=== PATIENT | female | born 1950 | race Asian ===

== ENCOUNTER → 2019-09-28 | Outpatient (REF) | payer BC ==
[2019-09-28 14:17] LABS: EOS # 0.2 10^3/uL (0.0-0.5); EOS % 4.4 % (0.0-3.0); HEMATOCRIT 40.9 % (36.0-47.0); HEMOGLOBIN 13.1 g/dl (12.0-15.5); LYMPH # 1.1 10^3/uL (1.5-5.0); MEAN CORPUSCULAR HEMOGLOBIN 30.8 pg (27.0-33.0); MONO # 0.3 10^3/uL (0.0-0.8); MONO % 6.5 % (0.0-5.0); NEUTROPHILS # 2.3 10^3/uL (1.5-8.5); NEUTROPHILS % 58.8 % (36.0-66.0); PLATELET COUNT, AUTOMATED 222 10^3/uL (150-450); RED BLOOD COUNT 4.26 10^6/uL (4.00-5.40); WHITE BLOOD COUNT 3.9 10^3/uL (4.0-10.0)
[2019-09-28 14:33] LABS: ALBUMIN 4.2 GM/DL (3.2-5.2); ALT/SGPT 28 U/L (12-78); BILIRUBIN,TOTAL 0.7 MG/DL (0.2-1.0); BLOOD UREA NITROGEN 14 MG/DL (7-18); CALCIUM LEVEL 8.8 MG/DL (8.8-10.2); CARBON DIOXIDE LEVEL 27 MEQ/L (21-32); CHLORIDE LEVEL 108 MEQ/L (98-107); CHOLESTEROL LEVEL 197 MG/DL (<200); CHOLESTEROL RISK RATIO 3.396 (<5); CREATININE FOR GFR 0.84 MG/DL (0.55-1.30); FREE T4 0.97 NG/DL (0.76-1.46); GLOMERULAR FILTRATION RATE > 60.0 (>45); GLUCOSE, FASTING 89 MG/DL (70-100); HDL CHOLESTEROL 58 MG/DL (>40); LDL CHOLESTEROL 122 MG/DL (<100); NON-HDL-C 139 MG/DL; POTASSIUM SERUM 4.1 MEQ/L (3.5-5.1); SODIUM LEVEL 142 MEQ/L (136-145); TOTAL PROTEIN 7.1 GM/DL (6.4-8.2); TRIGLYCERIDES LEVEL 87 MG/DL (<150)
[2019-09-28 14:35] LABS: TOTAL 25(OH) VITAMIN D 23.4 NG/ML (30.0-100.0)
[2019-09-30 00:06] LABS: Lyme Disease IgG/IgM Antibodie <0.91 ISR (0.00-0.90); Lyme Disease IgM Ab Quantitati <0.80 index (0.00-0.79)
== END ==
LOC: M LAB REF 12:36
PROVIDERS: ATTEND Family Medicine
DX: Z12.39 Encounter for other screening for malignant neoplasm of breast (principal)

== ENCOUNTER → 2020-01-23 | Outpatient (REF) | payer BC ==
[~2020-01-23] MED LIST: AUGM875T28 PO; FLUTISP NARES
[2020-01-23 14:17] LABS: BASO % 1.1 % (0.0-1.0); EOS # 0.1 10^3/uL (0.0-0.5); EOS % 1.9 % (0.0-3.0); HEMATOCRIT 38.6 % (36.0-47.0); HEMOGLOBIN 12.6 g/dl (12.0-15.5); LYMPH # 0.9 10^3/uL (1.5-5.0); LYMPH % 23.6 % (24.0-44.0); MEAN CORPUSCULAR HEMOGLOBIN 30.9 pg (27.0-33.0); MEAN CORPUSCULAR HGB CONC 32.6 g/dl (32.0-36.5); MEAN CORPUSCULAR VOLUME 94.6 fl (80.0-96.0); MONO # 0.5 10^3/uL (0.0-0.8); NEUTROPHILS # 2.2 10^3/uL (1.5-8.5); NEUTROPHILS % 59.6 % (36.0-66.0); PLATELET COUNT, AUTOMATED 173 10^3/uL (150-450); RED BLOOD COUNT 4.08 10^6/uL (4.00-5.40); WHITE BLOOD COUNT 3.7 10^3/uL (4.0-10.0)
[2020-01-23 14:23] LABS: ALBUMIN 3.5 GM/DL (3.2-5.2); ALT/SGPT 25 U/L (12-78); BILIRUBIN,TOTAL 0.6 MG/DL (0.2-1.0); BLOOD UREA NITROGEN 11 MG/DL (7-18); CARBON DIOXIDE LEVEL 27 MEQ/L (21-32); CHLORIDE LEVEL 108 MEQ/L (98-107); CHOLESTEROL LEVEL 156 MG/DL (<200); CHOLESTEROL RISK RATIO 4.457 (<5); GLOMERULAR FILTRATION RATE > 60.0 (>45); GLUCOSE, FASTING 92 MG/DL (70-100); HDL CHOLESTEROL 35 MG/DL (>40); LDL CHOLESTEROL 95 MG/DL (<100); NON-HDL-C 121 MG/DL; POTASSIUM SERUM 4.2 MEQ/L (3.5-5.1); SODIUM LEVEL 141 MEQ/L (136-145); TOTAL PROTEIN 6.7 GM/DL (6.4-8.2); TRIGLYCERIDES LEVEL 129 MG/DL (<150)
[2020-01-23 14:45] LABS: HEMOGLOBIN A1c 6.1 %
== END ==
LOC: M LAB REF 12:22
PROVIDERS: ATTEND Nurse Practitioner Family
DX: J06.9 Acute upper respiratory infection, unspecified (principal); R53.83 Other fatigue

== ENCOUNTER 2020-01-28 22:01 | Inpatient (IN) | payer BC ==
[~2020-01-28] VITALS: Ht 152.4 cm; Wt 77.0 kg
[2020-01-28] MEDS ORDERED: ACETAMINOPHEN 500 MG TAB PO ONE (22:45)
[2020-01-28 22:50] LABS: HEMATOCRIT 31.4 % (36.0-47.0); HEMOGLOBIN 10.6 g/dl (12.0-15.5); MEAN CORPUSCULAR HEMOGLOBIN 30.5 pg (27.0-33.0); MEAN CORPUSCULAR HGB CONC 33.8 g/dl (32.0-36.5); MEAN CORPUSCULAR VOLUME 90.5 fl (80.0-96.0); PLATELET COUNT, AUTOMATED 118 10^3/uL (150-450); RED BLOOD COUNT 3.47 10^6/uL (4.00-5.40); WHITE BLOOD COUNT 4.4 10^3/uL (4.0-10.0)
[2020-01-28 22:58] LABS: BASOPHILS 1 % (0-1); LYMPHOCYTES 26 % (16-44); MONOCYTES 10 % (0-5); NEUTROPHILS 63 % (28-66)
[2020-01-28 22:59] LABS: ANISOCYTOSIS 1+; PLATELET ESTIMATE DECREASED (NORMAL); POLYCHROMASIA 1+
[2020-01-28 23:55] LABS: BLOOD UREA NITROGEN 15 MG/DL (7-18); CALCIUM LEVEL 7.6 MG/DL (8.8-10.2); CARBON DIOXIDE LEVEL 22 MEQ/L (21-32); CHLORIDE LEVEL 105 MEQ/L (98-107); CREATININE FOR GFR 0.65 MG/DL (0.55-1.30); GLOMERULAR FILTRATION RATE > 60.0 (>45); GLUCOSE, FASTING 133 MG/DL (70-100); POTASSIUM SERUM 3.6 MEQ/L (3.5-5.1); SODIUM LEVEL 136 MEQ/L (136-145)
[2020-01-29] MEDS ORDERED: ISOVUE-370 76% 100ML VIAL As Ordered ONE (00:05)
--- NOTE | 2020-01-29 01:59 | REPVR ---
PROCEDURE INFORMATION: Exam: CT Angiography Chest With Contrast Exam date and time: 01/29/2020 1:31 AM Age: 69 years old Clinical indication: Chest pain; Additional info: Hypox TECHNIQUE: Imaging protocol: Computed tomographic angiography of the chest with intravenous contrast. 3D rendering: MIP and/or 3D reconstructed images were created by the technologist. Radiation optimization: All CT scans at this facility use at least one of these dose optimization techniques: automated exposure control; mA and/or kV adjustment per patient size (includes targeted exams where dose is matched to clinical indication); or iterative reconstruction. Contrast material: ISO 370; Contrast volume: 75 ml; Contrast route: IV; COMPARISON: CR Chest, 1 view 01/28/2020 11:21 PM FINDINGS: Pulmonary arteries: Peripheral pulmonary artery evaluation limited by cardiac and respiratory motion artifact. Central pulmonary arteries show no intraluminal defect suggestive of clot. Aorta: Ascending thoracic aorta measures 3.6 cm. Descending aorta measures less than 3 cm. No descending aneurysm or dissection. Lungs: Pulmonary vascular/interstitial pattern does not suggest active pulmonary edema. No central endobronchial lesion. Patchy ground-glass opacities in the upper lobes predominantly and superior segment lower lobes. No endobronchial lesion or mass. Pleural space: No pleural effusion or pneumothorax. Heart: No overt cardiac enlargement or abnormal volume of pericardial fluid. Lymph nodes: No enlarged mediastinal lymph nodes. Calcified mediastinal lymph nodes suggest prior granulomatous exposure. Bones/joints: Bony structures show no acute fracture or destructive process. IMPRESSION: 1. Central pulmonary arteries show no intraluminal defect suggestive of clot. 2. Subtle bilateral ground-glass densities in the lungs with apical predominance suggesting atypical or viral pneumonia. Electronically signed by: Eddi Medina On 01/29/2020 01:59:02 AM
--- NOTE | 2020-01-29 01:59 | REP ---
Clinical: Fever . Comparison: None . Findings: The mediastinum and cardiac silhouette are stable and within normal limits for portable technique. The lung rojo are clear without acute consolidation, effusion, or pneumothorax. Skeletal structures are intact. Impression: No acute cardiopulmonary process appreciated. Electronically Signed by Dickson Green MD 01/29/2020 01:52 A
[2020-01-29 03:42] LABS: CK-MB VALUE MASS < 1.0 NG/ML (<3.6); CPK CREATINE PHOSPHOKINASE 27 U/L (26-192); LDH LACTATE DEHYDROGENASE 617 U/L (84-246); TROPONIN I < 0.02 NG/ML (< 0.10)
[2020-01-29] MEDS ORDERED: AUGM875T28 PO (03:51)
[2020-01-29] MEDS ORDERED: FLUTISP NARES (03:51)
[2020-01-29] MEDS ORDERED: ALBUTEROL 90 MCG/ACT 8GM HFA INHALER INH PRN (05:15)
[2020-01-29] MEDS: cefTRIAXone SOD 2 GM in D5W MINI-BAG PLUS 50 ML IV SCH (05:52)
[2020-01-29 06:55] VITALS: BP 99/55
[2020-01-29 07:03] LABS: HEMATOCRIT 30.1 % (36.0-47.0); HEMOGLOBIN 10.1 g/dl (12.0-15.5); MEAN CORPUSCULAR HEMOGLOBIN 30.8 pg (27.0-33.0); MEAN CORPUSCULAR HGB CONC 33.6 g/dl (32.0-36.5); MEAN CORPUSCULAR VOLUME 91.8 fl (80.0-96.0); PLATELET COUNT, AUTOMATED 112 10^3/uL (150-450); RED BLOOD COUNT 3.28 10^6/uL (4.00-5.40); WHITE BLOOD COUNT 3.8 10^3/uL (4.0-10.0)
--- NOTE | 2020-01-29 07:29 | HPEPDOC ---
General Date of Admission January 29, 2020 at 05:01 Date of Service: January 29, 2020 Attending Physician: NUSRAT LONDON MD Chief Complaint The patient is a 69-year-old female admitted with a reason for visit of Hypoxia,Pneumonia. Source: Patient Exam Limitations: Language barrier Timing/Duration: Week(s) (1 month) Severity: Severe Associated Symptoms: Fever, Chills, Nausea, Vomiting History of Present Illness 69 yo woman who speak Greek as a second language who presented to the ED after 1 month of progressively worsening fevers, chills, and today N/V and episodic subjective SOB. She reports that her was ill as well 1 month ago when she started feeling unwell but he got better and his illness resolved but her's continued. She reports no recent travel with her last international travel having been to [place] ([place] in 06/2019 to visit family. She otherwise is healthy at baseline without any known past medical history. She otherwise has been eating, drinking well until today when she had N/V. She denies any chest pain, abdominal pain, diarrhea, constipation, weight loss, headaches, back pain, other sick contacts or pets. In the ED, she was HDS with a recorded fever to 103.1 with soft BPs while saturating well on room air. Work up was notable for WBC 4.4, Hgb 10.6, platelets 118, na 136, K 3.6, Cr 0.65, covid-19 negative, CTA with subtle s cattered bilateral GGOs without PE, CRP 11.4, LDH 617, EKG with NSR and trop negative. Lactate was wnl, and ABG revealed paO2 of 66 though her sats remained wnl. She is now being admitted for possible viral PNA with ongoing work up for superimprosed bacterial PNA as well. Home Medications Scheduled Amoxicillin/Potassium Clav (Augmentin 875-125 Tablet) 1 Each Tablet, 1 TAB PO BID, (Reported) PRESCRIBED ON 01/23/2020 Fluticasone Propionate (Fluticasone Propionate) 16 Gm [place].susp, 1 SPRAY NARES BID, (Reported) PRESCRIBED 01/23/2020 Allergies Coded Allergies: SEASONAL ALLERGIES (Verified Allergy, Unknown, 01/28/20) Past Medical History Medical History None, 1 month of fevers Surgical History None Family History Significant Family History: No pertinent family hx Social History * Smoker: Denies Alcohol: Denies Drugs: denies Recent Travel/Sick Contacts: Denies: Recent travel, Recent sick contacts Psychosocial History: No pertinent psych hx Lives with husbandin [place] A-FIB/CHADSVASC A-FIB History Current/History of A-Fib/PAF?: No Current PO Anticoag Therapy: No Age/Risk Factor Scoring CHADSVASC: CHADSVASC Response (Comments) Value Age Risk Factor Age 65-74 years old 1 Gender Risk Factor Female 1 Hx of CHF No 0 Hx of HTN No 0 Hx of Stroke/TIA/or VTE No 0 Hx of Diabetes No 0 Hx of Vascular Disease No 0 Total 2 Treatment Treatment ordered: NONE Reason Anticoagulant not given: Not indicated/[id number] Review of Systems Constitutional: Reports: Chills, Fever, Weakness; Denies: Weight Loss Eyes: Denies: Pain, Vision change ENT: Denies: Head Aches, Ear Pain, Dysphagia Skin: Denies: Rash, Lesions, Breakdown Pulmonary: Reports: Dyspnea (intermittent); Denies: Cough, Pleuritic Chest Pain Cardiovascular: Denies: Chest Pain, Palpitations, Orthopnea, Paroxysmal Noc. Dyspnea, Lt Headedness Gastrointestinal: Reports: Nausea, Vomiting; Denies: Abdominal Pain, Diarrhea, Constipation, Melena, Hematochezia Genitourinary: Denies: Dysuria, Frequency, Incontinence, Retention Hematologic: Denies: Bruising, Bleeding Excessively Endocrine: Denies: Polydipsia, Polyphagia, Polyuria, Heat Intolerance, Cold Intolerance, Other Endocrine Sx Musculoskeletal: Denies: Neck Pain, Back Pain, Joint Pain, Muscle Pain, Spasms Neurological: Denies: Weakness, Numbness, Change in speech, Confusion Psych: Reports: Mood Normal; Denies: Depression, Memory Issues Physical Examination General Exam: Positive: Alert, No Acute Distress Eye Exam: Positive: PERRLA, Conjunctiva & lids normal, EOMI; Negative: Sclera icteric ENT Exam: Positive: Atraumatic, Mucous membr. moist/pink, Pharynx Normal Neck Exam: Positive: Supple; Negative: JVD, thyromegaly Chest Exam: Positive: Clear to auscultation, Normal air movement Heart Exam: Positive: Rate Normal, Regular Rhythm, Normal S1, Normal S2; Negative: Murmurs, Rubs Telemetry: Positive: No significant arrhythmia Abdomen Exam: Positive: Normal bowel sounds, Soft; Negative: Tenderness, Hepatospenomegaly Extremity Exam: Positive: Normal pulses; Negative: Clubbing, Cyanosis, Edema Skin Exam: Positive: Nl turgor and temperature; Negative: Breakdown, Lesion Neuro Exam: Positive: Normal Gait, Normal Speech, Cranial Nerves 3-12 NL, Reflexes 2+ Psych Exam: Positive: Mental status NL, Mood NL, Oriented x 3 Vital Signs Vital Signs Date Time Temp Pulse Resp B/P (MAP) Pulse Ox O2 Delivery O2 Flow Rate FiO2 01/29/20 06:47 64 96 01/29/20 05:54 91/50 (64) 01/29/20 04:57 97.9 01/28/20 22:48 Room Air 01/28/20 22:01 16 Laboratory Data Labs 24H Laboratory Tests 2 01/28/20 22:36: Neutrophils (%) (Auto) , Nucleated Red Blood Cells % (auto) 0.0, Neutrophils 63, Lymphocytes (Manual) 26, Monocytes (Manual) 10H, Basophils (Manual) 1, Polychromasia 1+, Anisocytosis 1+, Platelet Estimate DECREASED, D-Dimer, Quantitative 791.31H 01/28/20 22:38: Anion Gap 9, Glomerular Filtration Rate > 60.0, Calcium Level 7.6L, Lactate Dehydrogenase 617H, Total Creatine Kinase 27, Creatine Kinase MB < 1.0, Creatine Kinase MB Relative Index 3.70, Troponin I < 0.02, C-Reactive Protein, Quantitative 11.40H, Coronavirus (COVID-19)(PCR) NEGATIVE 01/28/20 22:39: Lactic Acid Level 1.2 01/28/20 23:01: POC pH (Misc Panel) 7.452H, POC Base Excess (Misc Panel) -2.0, POC Saturated Percent O2 (Misc) 94L, POC pO2 (Misc Panel) 66.0L, POC pCO2 (Misc Panel) 31.3L, POC HCO3 (Misc Panel) 21.9L, POC Total CO2 (Misc Panel) 23.0 01/29/20 06:47: Nucleated Red Blood Cells % (auto) 0.0 CBC/BMP Laboratory Tests 01/28/20 22:36 01/28/20 22:38 01/29/20 06:47 Microbiology Microbiology 5/17/20 Blood Culture, Received Pending 01/28/20 Blood Culture, Received Pending 01/28/20 - Final, Complete Assessment/Plan 69 yo woman who speak Greek as a second language who presented to the ED after 1 month of progressively worsening fevers, chills, and today N/V and episodic subjective SOB of one months with elevated inflammatory markers and subtle scattered GGOs on CT c/f viral PNA however with onging workup for superimposed bacterial PNA given worsening fevers recently, as well as occult infection. Fever with subjective SOB and GGOs on CT: -empiric ceftriaxone/azithro -procalcitonin -sputum culture -respiratory panel -covid-19 negative -blood cultures -no PE on CTA -may end up needing fever on unclear origin workup DVT ppx: TEDs and SCDs Diet: regular Dispo: medsurg Plan / VTE VTE Prophylaxis Ordered?: Yes NUSRAT LONDON MD January 29, 2020 07:29
[2020-01-29 07:47] LABS: ALBUMIN 2.7 GM/DL (3.2-5.2); ALT/SGPT 79 U/L (12-78); BILIRUBIN,TOTAL 0.3 MG/DL (0.2-1.0); BLOOD UREA NITROGEN 13 MG/DL (7-18); CALCIUM LEVEL 7.9 MG/DL (8.8-10.2); CARBON DIOXIDE LEVEL 25 MEQ/L (21-32); CHLORIDE LEVEL 111 MEQ/L (98-107); CREATININE FOR GFR 0.58 MG/DL (0.55-1.30); GLOMERULAR FILTRATION RATE > 60.0 (>45); GLUCOSE, FASTING 111 MG/DL (70-100); POTASSIUM SERUM 3.6 MEQ/L (3.5-5.1); SODIUM LEVEL 143 MEQ/L (136-145)
[2020-01-29] MEDS: IPRATROPIUM 0.5MG/ALBUTEROL 2.5MG INH SOL UD 3ML (DUONEB) INH SCH ×5 (08:00→23:54)
[2020-01-29] MEDS: AZITHROMYCIN INJ 500 MG, VIAL MATE ADAPTER 1 EACH in D5W 250 ML IV SCH (08:18)
[2020-01-29] MEDS: FLUTICASONE PROP 0.05% NASAL SPRAY 16 GM (FLONASE) NARES SCH ×2 (08:19→22:07)
[2020-01-29] MEDS ORDERED: ENOXAPARIN 40MG/0.4ML SYRINGE (J1650 PER 10MG) SC SCH (09:00)
[2020-01-29] MEDS ORDERED: NS 1,000 ML IV SCH (11:30)
[2020-01-29] MEDS: ACETAMINOPHEN TAB 650MG DOSE (2X325MG) PO PRN ×2 (11:59→22:07)
[2020-01-29 15:21] VITALS: BP 91/54
[2020-01-29] MEDS ORDERED: KETOROLAC 30 MG/ML 1ML VIAL IV ONE (16:00)
[2020-01-29] MEDS ORDERED: NS 1,000 ML IV ONE ×2 (16:00→17:00)
[2020-01-29 18:13] VITALS: BP 99/62
[2020-01-29 19:45] VITALS: BP 102/61
[2020-01-29 23:43] VITALS: BP 125/65
[2020-01-30] MEDS: IBUPROFEN 600MG TAB PO PRN ×3 (01:07→18:05)
[2020-01-30] MEDS: IPRATROPIUM 0.5MG/ALBUTEROL 2.5MG INH SOL UD 3ML (DUONEB) INH SCH ×5 (04:00→19:49)
[2020-01-30] MEDS: cefTRIAXone SOD 2 GM in D5W MINI-BAG PLUS 50 ML IV SCH (05:51)
[2020-01-30] MEDS: ACETAMINOPHEN TAB 650MG DOSE (2X325MG) PO PRN ×3 (05:51→21:48)
[2020-01-30 06:00] VITALS: BP 92/56
[2020-01-30 06:03] LABS: HEMATOCRIT 29.4 % (36.0-47.0); MEAN CORPUSCULAR HEMOGLOBIN 31.2 pg (27.0-33.0); MEAN CORPUSCULAR VOLUME 91.6 fl (80.0-96.0); PLATELET COUNT, AUTOMATED 114 10^3/uL (150-450); RED BLOOD COUNT 3.21 10^6/uL (4.00-5.40); WHITE BLOOD COUNT 3.3 10^3/uL (4.0-10.0)
[2020-01-30 06:31] LABS: BLOOD UREA NITROGEN 13 MG/DL (7-18); CALCIUM LEVEL 7.8 MG/DL (8.8-10.2); CARBON DIOXIDE LEVEL 23 MEQ/L (21-32); CHLORIDE LEVEL 116 MEQ/L (98-107); CREATININE FOR GFR 0.56 MG/DL (0.55-1.30); GLOMERULAR FILTRATION RATE > 60.0 (>45); GLUCOSE, FASTING 112 MG/DL (70-100); SODIUM LEVEL 146 MEQ/L (136-145)
[2020-01-30] MEDS: FLUTICASONE PROP 0.05% NASAL SPRAY 16 GM (FLONASE) NARES SCH ×3 (07:28→21:49)
[2020-01-30] MEDS: AZITHROMYCIN INJ 500 MG, VIAL MATE ADAPTER 1 EACH in D5W 250 ML IV SCH (07:45)
--- NOTE | 2020-01-30 12:35 | ECHO ---
DATE OF STUDY: 01/29/2020 REFERRING PHYSICIAN: Dr. Collier INDICATION: Sepsis. HEIGHT: 152 cm WEIGHT: Not documented MEASUREMENTS: IVS: 1.0 LV: 4.0 LVPW: 1.0 LA: 2.7 Aorta: 2.9 IVC: 2.1 Mitral E wave velocity: 102 A wave: 84 E prime septal: 8.9 E prime lateral: 8.8 FINDINGS: The study is of good technical quality. The patient is in sinus rhythm. Left ventricle is normal size and has normal contractility, estimated left ventricle ejection fraction (LVEF) is 60-65%. Right ventricle is also normal size and systolic function. Both atria appear normal. Aortic, mitral and tricuspid valves were reasonably well seen and appear normal. Pulmonic valve was not well visualized. Trivial pericardial effusion is noted. Inferior vena cava is mildly dilated, but has collapse with inspiration, indicative of likely normal or mildly elevated central venous pressure. The aortic root and abdominal aorta appear normal. Aortic arch was not visualized. Doppler interrogation reveals competent aortic valve. There is trace mitral and tricuspid insufficiency. Calculated pulmonary artery pressure is at minimum in 30s and possibly in 40s, indicative of mild or possibly even moderate pulmonary hypertension. Mitral inflow pattern and tissue Doppler imaging on mitral annulus indicate probably normal diastolic function, even though tissue Doppler velocities of mitral annulus are mildly reduced. CONCLUSIONS: 1. The study is good technical quality, patient is in sinus rhythm. 2. Normal LV size and systolic function and probably normal diastolic function. 3. No significant valvular disease. 4. At least borderline elevated central venous pressure and likely mild or possibly even moderate pulmonary hypertension. COMMENTS: Subacute bacterial endocarditis (SBE) prophylaxis is not indicated. [facility]
[2020-01-30 14:17] LABS: INR 1.16; PROTHROMBIN TIME 14.5 SECONDS (11.8-14.0)
[2020-01-30 14:21] LABS: D-DIMER QUANT 699.63 ng/ml (<500)
[2020-01-30 14:23] LABS: PARTIAL THROMBOPLASTIN TIME 47.6 SECONDS (25.0-38.4)
[2020-01-30 14:25] VITALS: BP 117/64
[2020-01-30 15:14] LABS: CPK CREATINE PHOSPHOKINASE 21 U/L (26-192); FERRITIN 983 NG/ML (8-252); LDH LACTATE DEHYDROGENASE 526 U/L (84-246); TROPONIN I < 0.02 NG/ML (< 0.10)
--- NOTE | 2020-01-30 17:57 | IPNPDOC ---
Date Seen The patient was seen on 01/30/20. Progress Note SUBJECTIVE: The patient was seen and examined at the bedside this afternoon. She is having some coughing, but not a lot and she is producing some sputum. She feels as though she has had more fevers today but last recorded fever was early this AM. Otherwise, she states she just doesn't feel herself. She has some abdominal cramping that comes and goes, but no nausea or vomiting. OBJECTIVE PHYSICAL EXAMINATION: VITAL SIGNS: Please see below. GENERAL APPEARANCE: Laying in bed, appears stated age, no acute distress, calm, cooperative HEENT: EOMI, PERRLA, neck is supple with no thyromegaly or lymphadenopathy RESPIRATORY: Lungs are clear to auscultation bilaterally with no adventitious breath sounds appreciated CARDIOVASCULAR: no JVD, RRR,no murmurs/rubs/gallops, normal S1 and S2 ABDOMEN: +BS, soft, nontender to palpation in all four quadrants, no masses/organomegaly EXTREMITIES: no clubbing, cyanosis or edema noted NEUROLOGICAL: CN 2-12 intact, No obvious focal deficits PSYCHIATRIC: normal mood/affect Skin: No rashes or ulcers appreciated, warm and well-perfused LN: No significant cervical or inguinal lymphadenopathy LABORATORY DATA, IMAGING STUDIES, MICROBIOLOGY: Please see below. DVT prophylaxis ordered?: TEDS/SCDs ASSESSMENT AND PLAN: This is a 69-year-old female with history of fevers and chills progressively worsening over the past month, and episodic subjective shor tness of breath, found to have elevated inflammatory markers, concerning for viral versus bacterial pneumonia. She is COVID-19 negative. PROBLEMS: 1. Viral versus bacterial upper respiratory infection: The patient is saturating 91% on room air -Ground glass opacities found on CTA and chest x-ray -Sputum culture ordered -Blood cultures pending -Continue empiric ceftriaxone and azithromycin -Pro calcitonin found to be 0.17, therefore less likely bacterial infection -Respiratory panel found to be negative -Atypical pneumonia testing, including mycoplasma and C.pneumoniae ordered and pending. -Continue Tylenol, ibuprofen for fevers -Duo nebs ordered as needed DISPOSITION: pending clinical improvement. If patient continues to have fevers, will do further workup for FUO VS, I&O, 24H, Fishbone Vital Signs/I&O Vital Signs Date Time Temp Pulse Resp B/P (MAP) Pulse Ox O2 Delivery O2 Flow Rate FiO2 01/30/20 14:25 98.7 87 17 117/64 (81) 91 Room Air I&O- Last 24 Hours up to 6 AM 01/30/20 06:00 Intake Total 3590 ml Output Total 700 ml Balance 2890 ml Laboratory Data 24H LABS Laboratory Tests 2 01/30/20 05:36: Nucleated Red Blood Cells % (auto) 0.0, Anion Gap 7L, Glomerular Filtration Rate > 60.0, Calcium Level 7.8L 01/30/20 09:36: 01/30/20 13:37: Prothrombin Time 14.5H, Prothromb Time International Ratio 1.16, Activated Partial Thromboplast Time 47.6H, Fibrinogen 522H, D-Dimer, Quantitative 699.63H, Ferritin 983H, Lactate Dehydrogenase 526H, Total Creatine Kinase 21L, Troponin I < 0.02, C-Reactive Protein, Quantitative 13.20H CBC/BMP Laboratory Tests 01/30/20 05:36 Microbiology Microbiology 01/30/20 Respiratory Virus Panel (PCR) ([facility]) - Final, Complete 01/28/20 Blood Culture - Preliminary, Resulted No growth after 24 hours . All specim... 01/28/20 Blood Culture - Preliminary, Resulted No growth after 24 hours . All specim... 01/28/20 - Final, Complete GME ATTESTATION GME ATTESTATION My faculty preceptor for this patient encounter was physically present during the encounter and was fully available. All aspects of the patient interview, examination, medical decision making process, and medical care plan development were reviewed and approved by the faculty preceptor. The faculty preceptor is aware and concurs with the plan as stated in the body of this note and will attest to such by his/her cosignature. ATTENDING NOTE Patient was seen and examined by me and agree with the above assessment and plan MORGAN BEACH MD January 30, 2020 17:57 ROM HOWE MD February 02, 2020 17:46
[2020-01-30 21:50] VITALS: BP 115/61
[2020-01-31] MEDS: IPRATROPIUM 0.5MG/ALBUTEROL 2.5MG INH SOL UD 3ML (DUONEB) INH SCH ×5 (04:00→15:59)
[2020-01-31 04:36] VITALS: BP 137/72
[2020-01-31] MEDS: IBUPROFEN 600MG TAB PO PRN ×3 (04:38→23:23)
[2020-01-31] MEDS: cefTRIAXone SOD 2 GM in D5W MINI-BAG PLUS 50 ML IV SCH (05:52)
[2020-01-31 05:57] LABS: HEMATOCRIT 30.7 % (36.0-47.0); HEMOGLOBIN 10.2 g/dl (12.0-15.5); MEAN CORPUSCULAR HEMOGLOBIN 30.1 pg (27.0-33.0); MEAN CORPUSCULAR HGB CONC 33.2 g/dl (32.0-36.5); MEAN CORPUSCULAR VOLUME 90.6 fl (80.0-96.0); PLATELET COUNT, AUTOMATED 113 10^3/uL (150-450); RED BLOOD COUNT 3.39 10^6/uL (4.00-5.40); WHITE BLOOD COUNT 5.4 10^3/uL (4.0-10.0)
[2020-01-31 06:01] LABS: BLOOD UREA NITROGEN 11 MG/DL (7-18); CALCIUM LEVEL 8.1 MG/DL (8.8-10.2); CARBON DIOXIDE LEVEL 24 MEQ/L (21-32); CHLORIDE LEVEL 109 MEQ/L (98-107); CREATININE FOR GFR 0.52 MG/DL (0.55-1.30); GLOMERULAR FILTRATION RATE > 60.0 (>45); GLUCOSE, FASTING 120 MG/DL (70-100); POTASSIUM SERUM 3.7 MEQ/L (3.5-5.1); SODIUM LEVEL 142 MEQ/L (136-145)
[2020-01-31] MEDS: AZITHROMYCIN INJ 500 MG, VIAL MATE ADAPTER 1 EACH in D5W 250 ML IV SCH (08:40)
[2020-01-31] MEDS: FLUTICASONE PROP 0.05% NASAL SPRAY 16 GM (FLONASE) NARES SCH ×2 (08:40→20:17)
[2020-01-31 09:18] LABS: HEPATITIS B SURFACE ANTIGEN NEGATIVE (NEGATIVE)
[2020-01-31 09:45] LABS: HEPATITIS C VIRUS ABY INDEX 0.1 INDEX (<0.8)
[2020-01-31 09:46] LABS: HEPATITIS B CORE ANTIBODY IGM NEGATIVE (NEGATIVE)
[2020-01-31 09:48] LABS: HEPATITIS A ANTIBODY IGM NEGATIVE (NEGATIVE)
[2020-01-31 11:16] LABS: RHEUMATOID FACTOR QUANT < 10.0 IU/ML (<15.0); TOTAL PROTEIN 5.6 GM/DL (6.4-8.2)
[2020-01-31 11:35] LABS: ERYTHROCYTE SEDIMENTATION RATE 65 mm/hr (0-30)
[2020-01-31] MEDS ORDERED: FUROSEMIDE 40MG/4ML VIAL (J1940) IV ONE (11:45)
[2020-01-31 12:06] LABS: HIV 1&2 SCREEN CENTAUR NEGATIVE (NEGATIVE)
[2020-01-31 14:00] VITALS: BP 122/74
--- NOTE | 2020-01-31 14:14 | REP ---
CT CHEST WITHOUT IV CONTRAST: CT chest performed without IV contrast. Sagittal and coronal reconstruction images are performed. Comparison is made with a prior study 01/29/2020. There are extensive diffuse bilateral patchy parenchymal opacities in the upper lobes which have increased since the prior study. There is mild diffuse interstitial infiltrate or edema bilaterally. There are small bilateral pleural effusions which are new. The heart is upper limits of normal in size. No pericardial effusion is seen. Ascending thoracic aorta is slightly ectatic at 4 cm. Calcified lymph nodes are again seen in the left hilar region. No significant adenopathy is detected. There are degenerative changes of the spine. IMPRESSION: Increased patchy alveolar infiltrates at both upper lobes diffusely. There is mild new diffuse interstitial edema/infiltrate. New small bilateral pleural effusions. Electronically Signed by Tacho Lu MD 01/31/2020 04:46 P
[2020-01-31] MEDS ORDERED: COMBIVENT RESPIMAT 100-20MCG INHALER 4GM INH PRN (18:15)
--- NOTE | 2020-01-31 18:24 | IPNPDOC ---
Date Seen The patient was seen on 01/31/20. Progress Note SUBJECTIVE: The patient continues to have fevers. She denies any complaints this morning, no shortness of breath, no nausea, no vomiting or diarrhea. She does still feel somewhat weak. She was found to be hypoxic this morning as well, requiring about 2 L of oxygen. OBJECTIVE PHYSICAL EXAMINATION: VITAL SIGNS: Please see below. GENERAL APPEARANCE: Laying in bed, appears stated age, no acute distress, calm, cooperative HEENT: EOMI, PERRLA, neck is supple with no thyromegaly or lymphadenopathy RESPIRATORY: Lungs are clear to auscultation bilaterally with no adventitious breath sounds appreciated CARDIOVASCULAR: no JVD, RRR,no murmurs/rubs/gallops, normal S1 and S2 ABDOMEN: +BS, soft, nontender to palpation in all four quadrants, no masses/organomegaly EXTREMITIES: no clubbing, cyanosis or edema noted NEUROLOGICAL: CN 2-12 intact, No obvious focal deficits PSYCHIATRIC: normal mood/affect Skin: No rashes or ulcers appreciated, warm and well-perfused LN: No significant cervical or inguinal lymphadenopathy LABORATORY DATA, IMAGING STUDIES, MICROBIOLOGY: Please see below. DVT prophylaxis ordered?: TEDS/SCDs ASSESSMENT AND PLAN: This is a 69-year-old female with history of fevers and chills progressively worsening over the past month, and episodic subjective shortness of breath, found to have elevated inflammatory markers, concerning for viral versus bacterial pneumonia. She is COVID-19 negative. PROBLEMS: 1. Fever of unknown origin: -Ground glass opacities found on CTA and chest x-ray. -Chest CT repeated today found to be concerning for fluid overload. Given dose of IV lasix -Sputum culture ordered -Blood cultures pending -Continue empiric ceftriaxone and azithromycin -Pro calcitonin found to be 0.17, therefore less likely bacterial infection -Respiratory panel found to be negative -Atypical pneumonia testing, including mycoplasma and C.pneumoniae ordered and pending. -Continue Tylenol, ibuprofen for fevers -MDI resp treatment as needed DISPOSITION: pending clinical improvement. VS, I&O, 24H, Fishbone Vital Signs/I&O Vital Signs Date Time Temp Pulse Resp B/P (MAP) Pulse Ox O2 Delivery O2 Flow Rate FiO2 01/31/20 14:00 99.2 85 18 122/74 (90) 94 Nasal Cannula 2.0 I&O- Last 24 Hours up to 6 AM 01/31/20 06:00 Intake Total 1925 ml Output Total 0 ml Balance 1925 ml Laboratory Data 24H LABS Laboratory Tests 2 01/31/20 05:23: Nucleated Red Blood Cells % (auto) 0.0, Erythrocyte Sedimentation Rate 65H, Anion Gap 9, Glomerular Filtration Rate > 60.0, Calcium Level 8.1L, Total Protein (PEP) 5.6L, Rheumatoid Factor < 10.0, HIV Antigen/Antibody Combo Qual NEGATIVE CBC/BMP Laboratory Tests 01/31/20 05:23 Microbiology Microbiology 01/30/20 Gram Stain - Final, Complete 01/30/20 Sputum Culture - Final, Complete 01/30/20 Respiratory Virus Panel (PCR) ([facility]) - Final, Complete 01/28/20 Blood Culture - Preliminary, Resulted No Growth after 48 hours. All Specime... 01/28/20 Blood Culture - Preliminary, Resulted No Growth after 48 hours. All Specime... 01/28/20 - Final, Complete GME ATTESTATION GME ATTESTATION My faculty preceptor for this patient encounter was physically present during the encounter and was fully available. All aspects of the patient interview, examination, medical decision making process, and medical care plan development were reviewed and approved by the faculty preceptor. The faculty preceptor is aware and concurs with the plan as stated in the body of this note and will attest to such by his/her cosignature. ATTENDING NOTE Patient was seen and examined by me and agree with the above assessment and plan MORGAN BEACH MD January 31, 2020 18:24 ROM HOWE MD February 02, 2020 17:47
[2020-01-31 20:20] VITALS: BP 101/62
[2020-02-01 05:39] LABS: HEMATOCRIT 30.4 % (36.0-47.0); HEMOGLOBIN 10.2 g/dl (12.0-15.5); MEAN CORPUSCULAR HEMOGLOBIN 29.8 pg (27.0-33.0); MEAN CORPUSCULAR HGB CONC 33.6 g/dl (32.0-36.5); MEAN CORPUSCULAR VOLUME 88.9 fl (80.0-96.0); PLATELET COUNT, AUTOMATED 104 10^3/uL (150-450); RED BLOOD COUNT 3.42 10^6/uL (4.00-5.40); WHITE BLOOD COUNT 4.6 10^3/uL (4.0-10.0)
[2020-02-01 06:00] LABS: BLOOD UREA NITROGEN 13 MG/DL (7-18); CARBON DIOXIDE LEVEL 24 MEQ/L (21-32); CHLORIDE LEVEL 109 MEQ/L (98-107); CREATININE FOR GFR 0.55 MG/DL (0.55-1.30); GLOMERULAR FILTRATION RATE > 60.0 (>45); GLUCOSE, FASTING 110 MG/DL (70-100); POTASSIUM SERUM 3.2 MEQ/L (3.5-5.1); SODIUM LEVEL 142 MEQ/L (136-145)
[2020-02-01] MEDS: cefTRIAXone SOD 2 GM in D5W MINI-BAG PLUS 50 ML IV SCH (06:13)
[2020-02-01] MEDS: IBUPROFEN 600MG TAB PO PRN ×2 (06:19→14:11)
[2020-02-01 06:36] VITALS: BP 105/65
[2020-02-01] MEDS ORDERED: POTASSIUM CHLORIDE 10 MEQ SR TABLET PO ONE (08:00)
[2020-02-01] MEDS: AZITHROMYCIN INJ 500 MG, VIAL MATE ADAPTER 1 EACH in D5W 250 ML IV SCH (08:34)
[2020-02-01] MEDS: FLUTICASONE PROP 0.05% NASAL SPRAY 16 GM (FLONASE) NARES SCH ×2 (09:00→21:00)
[2020-02-01 09:37] LABS: D-DIMER QUANT 1860.51 ng/ml (<500)
[2020-02-01 10:13] LABS: ALBUMIN 2.3 GM/DL (3.2-5.2); ALT/SGPT 114 U/L (12-78); BILIRUBIN,DIRECT 0.3 MG/DL (0.0-0.2); BILIRUBIN,TOTAL 0.7 MG/DL (0.2-1.0); CPK CREATINE PHOSPHOKINASE 31 U/L (26-192); FERRITIN 942 NG/ML (8-252); LDH LACTATE DEHYDROGENASE 803 U/L (84-246); TOTAL PROTEIN 5.4 GM/DL (6.4-8.2); TROPONIN I < 0.02 NG/ML (< 0.10)
[2020-02-01] MEDS: KCL 10MEQ/100ML SWI (KRUN) 10 MEQ in IV 1 EA IV SCH ×4 (10:34→14:11)
[2020-02-01 10:51] LABS: MAGNESIUM LEVEL 2.1 MG/DL (1.8-2.4)
[2020-02-01 11:48] LABS: ALBUMIN 2.84 GM/DL (3.29-5.55); ALBUMIN % 50.7 % (55.8-66.1); ALPHA-1-GLOBULIN % 9.4 % (2.9-4.9); ALPHA-1-GLOBULINS 0.53 GM/DL (0.17-0.41); ALPHA-2-GLOBULINS % 16.1 % (7.1-11.8); BETA-1-GLOBULINS 0.34 GM/DL (0.28-0.60); BETA-2-GLOBULINS 0.39 GM/DL (0.19-0.55); GAMMA GLOBULIN % 10.8 % (11.1-18.8)
--- NOTE | 2020-02-01 13:39 | IPNPDOC ---
Date Seen The patient was seen on 02/01/20. Progress Note SUBJECTIVE: The patient continues to have fevers. She denies any complaints this morning, other than feeling weak and tired. No coughing or shortness of breath noted. She did desaturate down to 74% this AM and oxygen supplementation now up to 4L. Otherwise, ROS is negative. OBJECTIVE PHYSICAL EXAMINATION: VITAL SIGNS: Please see below. GENERAL APPEARANCE: Laying in bed, appears stated age, no acute distress, calm, cooperative HEENT: EOMI, PERRLA, neck is supple with no thyromegaly or lymphadenopathy RESPIRATORY: Lungs are clear to auscultation bilaterally with no adventitious breath sounds appreciated CARDIOVASCULAR: no JVD, RRR,no murmurs/rubs/gallops, normal S1 and S2 ABDOMEN: +BS, soft, nontender to palpation in all four quadrants, no masses/organomegaly EXTREMITIES: no clubbing, cyanosis or edema noted NEUROLOGICAL: CN 2-12 intact, No obvious focal deficits PSYCHIATRIC: normal mood/affect Skin: No rashes or ulcers appreciated, warm and well-perfused LN: No significant cervical or inguinal lymphadenopathy LABORATORY DATA, IMAGING STUDIES, MICROBIOLOGY: Please see below. DVT prophylaxis ordered?: TEDS/SCDs ASSESSMENT AND PLAN: This is a 69-year-old female with history of fevers and chills progressively worsening over the past month, and episodic subjective shortness of breath, found to have elevated inflammatory markers, concerning for viral versus bacterial pneumonia. She is COVID-19 negative. PROBLEMS: 1. Fever of unknown origin: concerning for acute viral PNA vs COVID-19 -Ground glass opacities found on CTA and chest x-ray. -Most recent chest CT concerning for ground glass opacities and questionable fluid overload. Patient given IV lasix for this. -Sputum culture contaminated from oral paul. -Blood cultures no growth to date -Continue empiric ceftriaxone and azithromycin for PNA -Pro calcitonin found to be 0.17, therefore less likely bacterial infection -Respiratory panel found to be negative -Atypical pneumonia testing, including mycoplasma and C.pneumoniae ordered and pending. -Continue Tylenol, ibuprofen for fevers -MDI resp treatment as needed DISPOSITION: pending clinical improvement. VS, I&O, 24H, Fishbone Vital Signs/I&O Vital Signs Date Time Temp Pulse Resp B/P (MAP) Pulse Ox O2 Delivery O2 Flow Rate FiO2 02/01/20 11:20 4.0 02/01/20 07:01 99.7 02/01/20 06:36 79 20 105/65 (78) 95 Nasal Cannula I&O- Last 24 Hours up to 6 AM 02/01/20 06:00 Intake Total 1460 ml Output Total 1800 ml Balance -340 ml Laboratory Data 24H LABS Laboratory Tests 2 02/01/20 04:12: 02/01/20 05:27: Nucleated Red Blood Cells % (auto) 0.0, Anion Gap 9, Glomerular Filtration Rate > 60.0, Calcium Level 8.0L 02/01/20 09:14: Fibrinogen 575H, D-Dimer, Quantitative 1860.51H, Magnesium Level 2.1, Ferritin 942H, Total Bilirubin 0.7, Direct Bilirubin 0.3H, Aspartate Amino Transf (AST/SGOT) 59H, Alanine Aminotransferase (ALT/SGPT) 114H, Alkaline Phosphatase 302H, Lactate Dehydrogenase 803H, Total Creatine Kinase 31, Troponin I < 0.02, C-Reactive Protein, Quantitative 25.80H, Total Protein 5.4L, Albumin 2.3L, Albumin/Globulin Ratio 0.7L CBC/BMP Laboratory Tests 02/01/20 05:27 Microbiology Microbiology 02/01/20 Gram Stain - Final, Complete 02/01/20 Sputum Culture - Final, Complete 01/30/20 Gram Stain - Final, Complete 01/30/20 Sputum Culture - Final, Complete 01/30/20 Respiratory Virus Panel (PCR) ([facility]) - Final, Complete 01/28/20 Blood Culture - Preliminary, Resulted No Growth after 72 hours. All specime... 01/28/20 Blood Culture - Preliminary, Resulted No Growth after 72 hours. All specime... 01/28/20 - Final, Complete GME ATTESTATION GME ATTESTATION My faculty preceptor for this patient encounter was physically present during the encounter and was fully available. All aspects of the patient interview, examination, medical decision making process, and medical care plan development were reviewed and approved by the faculty preceptor. The faculty preceptor is aware and concurs with the plan as stated in the body of this note and will attest to such by his/her cosignature. ATTENDING NOTE Patient was seen and examined by me and agree with the above assessment and plan MORGAN BEACH MD February 01, 2020 13:39 ROM HOWE MD February 02, 2020 17:47
[2020-02-01 14:00] VITALS: BP 115/72
[2020-02-01] MEDS: ACETAMINOPHEN TAB 650MG DOSE (2X325MG) PO PRN (14:46)
[2020-02-01 21:00] VITALS: BP 107/66
--- NOTE | 2020-02-01 23:00 | REP ---
REASON: Increasing hypoxia. COMPARISON: 01/28/2020 The technique utilized in obtaining the radiograph has magnified the cardiac silhouette and accentuated the interstitial markings. There is cardiomegaly accentuated by technique. There is a diffuse increase in the interstitial markings accentuated by technique. There are Renee B lines. There are no patchy opacities or pleural effusions. There is no change in the osseous structures. IMPRESSION: Interstitial edema. Electronically Signed by Joe Dominguez DO 02/02/2020 08:27 A
[2020-02-02] VITALS (11 sets, daily range): BP systolic 89–148; BP diastolic 53–70
[2020-02-02 00:07] LABS: ANTINUCLEAR ANTIBODIES DIRECT Negative (Negative)
[2020-02-02 00:07] LABS: CHLAMYDIA PNEUMONIAE IgG <1:16 (Neg:<1:16); CHLAMYDIA PNEUMONIAE IgM <1:10 (Neg:<1:10); MYCOPLASMA PNEUMONIAE IgG 328 U/mL (0-99); MYCOPLASMA PNEUMONIAE IgM <770 U/mL (0-769)
[2020-02-02] MEDS: IBUPROFEN 600MG TAB PO PRN ×3 (00:39→19:53)
[2020-02-02] MEDS: cefTRIAXone SOD 2 GM in D5W MINI-BAG PLUS 50 ML IV SCH (05:57)
[2020-02-02 07:01] LABS: HEMATOCRIT 28.3 % (36.0-47.0); HEMOGLOBIN 9.5 g/dl (12.0-15.5); MEAN CORPUSCULAR HEMOGLOBIN 30.2 pg (27.0-33.0); MEAN CORPUSCULAR HGB CONC 33.6 g/dl (32.0-36.5); MEAN CORPUSCULAR VOLUME 89.8 fl (80.0-96.0); RED BLOOD COUNT 3.15 10^6/uL (4.00-5.40); WHITE BLOOD COUNT 3.9 10^3/uL (4.0-10.0)
[2020-02-02 07:22] LABS: PLATELET COUNT, AUTOMATED 75 10^3/uL (150-450)
[2020-02-02 07:25] LABS: BLOOD UREA NITROGEN 13 MG/DL (7-18); CALCIUM LEVEL 7.8 MG/DL (8.8-10.2); CARBON DIOXIDE LEVEL 22 MEQ/L (21-32); CHLORIDE LEVEL 110 MEQ/L (98-107); CREATININE FOR GFR 0.49 MG/DL (0.55-1.30); GLOMERULAR FILTRATION RATE > 60.0 (>45); GLUCOSE, FASTING 115 MG/DL (70-100); POTASSIUM SERUM 3.3 MEQ/L (3.5-5.1); SODIUM LEVEL 141 MEQ/L (136-145)
[2020-02-02] MEDS: FLUTICASONE PROP 0.05% NASAL SPRAY 16 GM (FLONASE) NARES SCH ×2 (08:20→19:55)
[2020-02-02] MEDS: AZITHROMYCIN INJ 500 MG, VIAL MATE ADAPTER 1 EACH in D5W 250 ML IV SCH (08:20)
[2020-02-02 10:09] LABS: ALBUMIN 2.1 GM/DL (3.2-5.2); ALT/SGPT 154 U/L (12-78); BILIRUBIN,DIRECT 0.3 MG/DL (0.0-0.2); BILIRUBIN,TOTAL 0.8 MG/DL (0.2-1.0); LDH LACTATE DEHYDROGENASE 900 U/L (84-246); TOTAL PROTEIN 5.1 GM/DL (6.4-8.2)
[2020-02-02] MEDS: ACETAMINOPHEN TAB 650MG DOSE (2X325MG) PO PRN (10:34)
[2020-02-02] MEDS ORDERED: FUROSEMIDE 20MG/2ML VIAL (J1940) IV ONE (11:00)
[2020-02-02] MEDS ORDERED: VANCOMYCIN HCL 1,000 MG, VIAL MATE ADAPTER 1 EACH in D5W 250 ML IV SCH (11:15)
[2020-02-02 11:30] LABS: ABG BASE EXCESS -1.7 (-2.0-2.0); ABG HCO3 19.8 MEQ/L (22.0-26.0); ABG O2 SATURATION 94.7 % (95.0-99.0); ABG PARTIAL PRESSURE CO2 24.2 mmHg (35.0-45.0); ABG PARTIAL PRESSURE O2 68.5 mmHg (75.0-100.0); ABG TOTAL CO2 20.6 MEQ/L (23.0-31.0); ABG pH (ARTERIAL) 7.531 UNITS (7.350-7.450)
[2020-02-02] MEDS: CEFEPIME HCL 1 GM in D5W MINI-BAG PLUS 50 ML IV SCH (12:40)
--- NOTE | 2020-02-02 13:59 | REP ---
REASON: Followup. COMPARISON: Multiple, the latest 02/01/2020. The technique utilized in obtaining the radiograph has magnified the cardiac silhouette and accentuated the interstitial markings. Diffuse interstitial opacities have increased with possible early development of patchy airspace opacities bilaterally. There is now bilateral CP angle blunting. The cardiomediastinal silhouette is unchanged. The osseous structures are all unchanged. IMPRESSION: Evidence of increased interstitial edema with some evidence of early airspace edema and small bilateral pleurale effusions. Followup is recommended. Electronically Signed by Joe Dominguez DO 02/02/2020 02:05 P
[2020-02-02] MEDS ORDERED: POTASSIUM CHLORIDE 10 MEQ SR TABLET PO ONE (17:00)
[2020-02-02] MEDS: KCL 10MEQ/100ML SWI (KRUN) 10 MEQ in IV 1 EA IV SCH ×2 (17:23→18:27)
--- NOTE | 2020-02-02 18:48 | IPNPDOC ---
Date Seen The patient was seen on 02/02/20. Progress Note SUBJECTIVE: The patient continued to have fevers overnight. She was very tachypneic and anxious this morning. She desaturated to the low 80s during the day and had episodes of hypotension for which she was transferred to the ICU. In the ICU she continues on 40%FIO2, 15L. She reports she has shortness of breath but no cough. She is still walking around her room without much effort. She denies any abdominal pain, N/V/D. OBJECTIVE PHYSICAL EXAMINATION: VITAL SIGNS: Please see below. GENERAL APPEARANCE: Laying in bed, appears stated age, no acute distress, calm, cooperative HEENT: EOMI, PERRLA, neck is supple with no thyromegaly or lymphadenopathy RESPIRATORY: Lungs are clear to auscultation bilaterally with no adventitious breath sounds appreciated CARDIOVASCULAR: no JVD, RRR,no murmurs/rubs/gallops, normal S1 and S2 ABDOMEN: +BS, soft, nontender to palpation in all four quadrants, no masses/organomegaly EXTREMITIES: no clubbing, cyanosis or edema noted NEUROLOGICAL: CN 2-12 intact, No obvious focal deficits PSYCHIATRIC: normal mood/affect Skin: No rashes or ulcers appreciated, warm and well-perfused LN: No significant cervical or inguinal lymphadenopathy LABORATORY DATA, IMAGING STUDIES, MICROBIOLOGY: Please see below. DVT prophylaxis ordered?: TEDS/SCDs ASSESSMENT AND PLAN: This is a 69-year-old female with history of fevers and chills progressively worsening over the past month, and episodic subjective shortness of breath, found to have elevated inflammatory markers, concerning for viral versus bacterial pneumonia. She is COVID-19 negative. PROBLEMS: 1. Fever of unknown origin: concerning for acute viral PNA vs COVID-19 -Ground glass opacities found on CTA and chest x-ray. Also concerning for fluid overload -s/p Lasix x2 -ABG this morning demonstrates respiaratory alkalosis likely 2/2 hyperventilation (7.531//) -Sputum culture contaminated from oral paul. -Blood cultures no growth to date 2. Possible PNA -Continue empiric ceftriaxone and azithromycin -Pro calcitonin found to be 0.17, therefore less likely bacterial infection -Respiratory panel found to be negative -Mycoplasma pneumonia IgG found to be elevated. May suggest history of infectio n, but not necessarily current infection -Continue Tylenol, ibuprofen for fevers -MDI resp treatment as needed 3. Tranaminitis: -Liver function worsening, workup thus far negative. Will continue to monitor DISPOSITION: pending clinical improvement. VS, I&O, 24H, Fishbone Vital Signs/I&O Vital Signs Date Time Temp Pulse Resp B/P (MAP) Pulse Ox O2 Delivery O2 Flow Rate FiO2 02/02/20 14:51 15.0 40 02/02/20 14:38 92/54 (67) 02/02/20 14:30 98.0 80 25 95 Venturi Mask I&O- Last 24 Hours up to 6 AM 02/02/20 06:00 Intake Total 3070 ml Output Total 1750 ml Balance 1320 ml Laboratory Data 24H LABS Laboratory Tests 2 02/02/20 06:43: Nucleated Red Blood Cells % (auto) 0.0, Immature Platelet Fraction 4.1, Anion Gap 9, Glomerular Filtration Rate > 60.0, Calcium Level 7.8L, Total Bilirubin 0.8, Direct Bilirubin 0.3H, Aspartate Amino Transf (AST/SGOT) 103H, Alanine Aminotransferase (ALT/SGPT) 154H, Alkaline Phosphatase 450H, Lactate Dehydrogenase 900H, C-Reactive Protein, Quantitative 23.20H, Total Protein 5.1L, Albumin 2.1L, Albumin/Globulin Ratio 0.7L 02/02/20 11:15: Blood Gas Bicarbonate Standard 23.0, Arterial Blood pH 7.531H, Arterial Blood Partial Pressure CO2 24.2L, Arterial Blood Partial Pressure O2 68.5L, Arterial Blood Total CO2 20.6L, Arterial Blood HCO3 19.8L, Arterial Blood Base Excess - 1.7, Arterial Blood Oxygen Saturation 94.7L 02/02/20 11:31: Methicillin-Resist S.aureus DNA PCR NOT DETECTED 02/02/20 12:22: Lactic Acid Level 1.5 CBC/BMP Laboratory Tests 02/02/20 06:43 Microbiology Microbiology 02/01/20 Gram Stain - Final, Complete 02/01/20 Sputum Culture - Final, Complete 01/30/20 Gram Stain - Final, Complete 01/30/20 Sputum Culture - Final, Complete 01/30/20 Respiratory Virus Panel (PCR) ([facility]) - Final, Complete 01/28/20 Blood Culture - Preliminary, Resulted No Growth after 72 hours. All specime... 01/28/20 Blood Culture - Preliminary, Resulted No Growth after 72 hours. All specime... 01/28/20 - Final, Complete GME ATTESTATION GME ATTESTATION My faculty preceptor for this patient encounter was physically present during the encounter and was fully available. All aspects of the patient interview, examination, medical decision making process, and medical care plan development were reviewed and approved by the faculty preceptor. The faculty preceptor is aware and concurs with the plan as stated in the body of this note and will attest to such by his/her cosignature. ATTENDING NOTE Patient was seen and examined by me with the residents. agree with the above assessment and plan . MORGAN BEACH MD February 02, 2020 18:47 ROM HOWE MD February 03, 2020 16:28
[2020-02-03] VITALS (13 sets, daily range): BP systolic 98–148; BP diastolic 53–85; O2SAT 92
[2020-02-03] MEDS: CEFEPIME HCL 1 GM in D5W MINI-BAG PLUS 50 ML IV SCH (03:03)
[2020-02-03] MEDS: IBUPROFEN 600MG TAB PO PRN ×3 (03:14→20:09)
[2020-02-03 04:23] LABS: HEMATOCRIT 28.9 % (36.0-47.0); HEMOGLOBIN 9.7 g/dl (12.0-15.5); MEAN CORPUSCULAR HEMOGLOBIN 29.7 pg (27.0-33.0); MEAN CORPUSCULAR HGB CONC 33.6 g/dl (32.0-36.5); MEAN CORPUSCULAR VOLUME 88.4 fl (80.0-96.0); RED BLOOD COUNT 3.27 10^6/uL (4.00-5.40); WHITE BLOOD COUNT 3.7 10^3/uL (4.0-10.0)
[2020-02-03 04:24] LABS: PLATELET COUNT, AUTOMATED 58 10^3/uL (150-450)
[2020-02-03 04:54] LABS: ALBUMIN 1.9 GM/DL (3.2-5.2); ALT/SGPT 155 U/L (12-78); BILIRUBIN,TOTAL 0.9 MG/DL (0.2-1.0); BLOOD UREA NITROGEN 14 MG/DL (7-18); CALCIUM LEVEL 7.5 MG/DL (8.8-10.2); CARBON DIOXIDE LEVEL 23 MEQ/L (21-32); CHLORIDE LEVEL 110 MEQ/L (98-107); CREATININE FOR GFR 0.57 MG/DL (0.55-1.30); GLOMERULAR FILTRATION RATE > 60.0 (>45); GLUCOSE, FASTING 149 MG/DL (70-100); POTASSIUM SERUM 3.7 MEQ/L (3.5-5.1); SODIUM LEVEL 141 MEQ/L (136-145)
[2020-02-03 08:21] LABS: D-DIMER QUANT 3563.1 ng/ml (<500)
[2020-02-03 08:48] LABS: FERRITIN 1508 NG/ML (8-252)
[2020-02-03] MEDS: FLUTICASONE PROP 0.05% NASAL SPRAY 16 GM (FLONASE) NARES SCH ×2 (08:50→20:10)
[2020-02-03 09:27] LABS: NT-PRO BNP 304 PG/ML (<125)
[2020-02-03 09:41] LABS: RHEUMATOID FACTOR QUANT < 10.0 IU/ML (<15.0)
[2020-02-03] MEDS ORDERED: FUROSEMIDE 40MG/4ML VIAL (J1940) IV ONE (10:00)
[2020-02-03 10:17] LABS: LDH LACTATE DEHYDROGENASE 1061 U/L (84-246)
[2020-02-03 11:46] LABS: CHOLESTEROL LEVEL 88 MG/DL (<200); HDL CHOLESTEROL 10 MG/DL (>40); LDL CHOLESTEROL 49 MG/DL (<100); NON-HDL-C 78 MG/DL; TRIGLYCERIDES LEVEL 144 MG/DL (<150)
[2020-02-03] MEDS ORDERED: SODIUM CHLORIDE HYPERTONIC 3% 15ML NEB SOL INH PRN (13:00)
[2020-02-03 15:12] LABS: BODY FLUID CULTURE Not indicated. (.); ORGANISM ID Not indicated. (.); SPECIMEN SOURCE Urine (.); URINE STREP PNEUMONIAE ANTIGEN Negative (Negative)
--- NOTE | 2020-02-03 15:43 | IPNPDOC ---
Date Seen The patient was seen on 02/03/20. Progress Note SUBJECTIVE: Roxy continued to have fevers overnight. This morning she reports she is more short of breath, especially when she gets up to walk around her room. She is very apprehensive, wanting to know what could be wrong with her at this time. She also complains of abdominal pain which is crampy in nature, not localized to any particular spot. She denies any headaches, but does report that she feels another fever coming on, and feels as though she has some chills. With the help of [place] nib adjuster (Dr. Soniya Sanchez), I spoke to the patient's as the patient mentioned she has a remote history of Tuberculosis. Her reports he thinks she had TB as a child but is unsure whether she underwent treatment or not. She has not come into contact with any known positive TB patients recently. No recent travel. No pets in the house. All of his questions were answered. OBJECTIVE PHYSICAL EXAMINATION: VITAL SIGNS: Please see below. GENERAL APPEARANCE: Laying in bed, appears stated age, no acute distress, calm, cooperative HEENT: EOMI, PERRLA, neck is supple with no thyromegaly or lymphadenopathy RESPIRATORY: Lungs are clear to auscultation bilaterally with no adventitious breath sounds appreciated CARDIOVASCULAR: no JVD, RRR,no murmurs/rubs/gallops, normal S1 and S2 ABDOMEN: +BS, soft, tender to palpation in suprapubic region, LLQ , no masses/organomegaly EXTREMITIES: no clubbing, cyanosis or edema noted NEUROLOGICAL: CN 2-12 intact, No obvious focal deficits PSYCHIATRIC: normal mood/affect Skin: No rashes or ulcers appreciated, warm and well-perfused LN: No significant cervical or inguinal lymphadenopathy LABORATORY DATA, IMAGING STUDIES, MICROBIOLOGY: Please see below. DVT prophylaxis ordered?: TEDS/SCDs ASSESSMENT AND PLAN: This is a 69-year-old female with history of fevers and chills progressively worsening over the past month, and episodic subjective shortness of breath, found to have elevated inflammatory markers, concerning for viral versus bacterial pneumonia. She is COVID-19 negative. PROBLEMS: 1. Fever of unknown origin: concerning for acute viral PNA vs atypical PNA vs reactivated TB -Ground glass opacities found on CTA and chest x-ray. Also concerning for fluid overload -s/p Lasix x2. Suffienct UOP. Net negative 700cc -Most recent ABG demonstrates respiaratory alkalosis likely 2/2 hyperventilation (7.531//) -Sputum culture contaminated from oral paul. I have ordered hypertonic saline for induction of sputum for AFB culture -Blood cultures no growth to date -Inflammatory markers (Ferritin, LDH, CRP) increasing 2. Possible PNA -s/p Ceftriaxone and Azithromycin x 3 days. Changed to Cefepime/Vanc x 1 day. Now changed to oral Doxycycline to cover atypicals -Pro calcitonin found to be 0.17, therefore less likely bacterial infection -Respiratory panel found to be negative -Mycoplasma pneumonia IgG found to be elevated. May suggest history of infection, but not necessarily current infection -Quant Gold test, PPD, Legionella, EBV, CMV, Scleroderma ordered to rule out atypical pathology -Continue Tylenol, ibuprofen for fevers -MDI resp treatment as needed 3. Tranaminitis: -Liver function stable. Will continue to monitor DISPOSITION: pending clinical improvement. VS, I&O, 24H, [facility] Vital Signs/I&O Vital Signs Date Time Temp Pulse Resp B/P (MAP) Pulse Ox O2 Delivery O2 Flow Rate FiO2 02/03/20 12:00 101.8 97 24 128/64 (85) 89 High Flow Cannula 5.0 02/02/20 16:00 40 I&O- Last 24 Hours up to 6 AM 02/03/20 06:00 Intake Total 2265 ml Output Total 2065 ml Balance 200 ml Laboratory Data 24H LABS Laboratory Tests 2 02/03/20 03:57: Nucleated Red Blood Cells % (auto) 0.0, Differential Slide Review Report, Peripheral Blood Smear Path Consult PERIPHERAL SMEAR, Anion Gap 8, Glomerular Filtration Rate > 60.0, Calcium Level 7.5L, Magnesium Level 2.0, Total Bilirubin 0.9, Aspartate Amino Transf (AST/SGOT) 109H, Alanine Aminotransferase (ALT/SGPT) 155H, Alkaline Phosphatase 470H, Total Protein 5.0L, Albumin 1.9L, Albumin/Globulin Ratio 0.6L, Triglycerides Level 144, Total Cholesterol 88, LDL Cholesterol 49, Non-HDL Cholesterol (LDL + VLDL) 78, Total HDL Cholesterol 10L, Cholesterol/HDL Ratio 8.800H 02/03/20 07:57: Fibrinogen 647H, D-Dimer, Quantitative 3563.10H, Ferritin 1508H, Lactate Dehydrogenase 1061H, C-Reactive Protein, Quantitative 25.70H, XY-Eno-J-Type Natriuretic Peptide 304H, Rheumatoid Factor < 10.0 02/03/20 09:00: CBC/BMP Laboratory Tests 02/03/20 03:57 Microbiology Microbiology 02/01/20 Gram Stain - Final, Complete 02/01/20 Sputum Culture - Final, Complete 01/30/20 Gram Stain - Final, Complete 01/30/20 Sputum Culture - Final, Complete 01/30/20 Respiratory Virus Panel (PCR) ([facility]) - Final, Complete 01/28/20 Blood Culture - Final, Complete NO GROWTH AFTER 5 DAYS 01/28/20 Blood Culture - Final, Complete NO GROWTH AFTER 5 DAYS 01/28/20 - Final, Complete GME ATTESTATION GME ATTESTATION My faculty preceptor for this patient encounter was physically present during the encounter and was fully available. All aspects of the patient interview, examination, medical decision making process, and medical care plan development were reviewed and approved by the faculty preceptor. The faculty preceptor is aware and concurs with the plan as stated in the body of this note and will attest to such by his/her cosignature. ATTENDING NOTE Patient was seen and examined by me with the residents. agree with the above assessment and plan . MORGAN BEACH MD February 03, 2020 15:43 ROM HOWE MD February 03, 2020 16:28
[2020-02-03] MEDS ORDERED: TUBERCULIN PPD 5 UNITS/0.1 ML ID ONE (16:00)
--- NOTE | 2020-02-03 19:10 | REPVR ---
PROCEDURE INFORMATION: Exam: US Abdomen Complete Exam date and time: 02/03/2020 6:51 PM Age: 69 years old Clinical indication: Abdominal pain; Generalized; Additional info: Fever, sepsis, abd tenderness TECHNIQUE: Imaging protocol: Real-time ultrasound of the abdomen with image documentation. COMPARISON: No relevant prior studies available. FINDINGS: Pleural space: Left greater than right pleural effusions. Liver: Unremarkable. Gallbladder: Cholelithiasis without gallbladder wall thickening or pericholecystic fluid. Positive sonographic Figueroa's sign, as per the crewman main battle tank. This is a nonspecific finding. Common bile duct: No stones. No ductal dilatation. Pancreas: Unremarkable as visualized. Right kidney: No mass. No definite stones. No hydronephrosis. Left kidney: No mass. No definite stones. No hydronephrosis. Spleen: Unremarkable. Aorta: Unremarkable as visualized. No aneurysm. Inferior vena cava: Unremarkable as visualized. IMPRESSION: 1. Cholelithiasis without sonographic evidence of acute cholecystitis. 2. Left greater than right pleural effusions. Electronically signed by: Reagan Burks On 02/03/2020 19:09:55 PM
[2020-02-03] MEDS: DOXYCYCLINE HYCLATE 100MG TABLET PO SCH (20:09)
[2020-02-03] MEDS ORDERED: POTASSIUM CHLORIDE 10 MEQ SR TABLET PO ONE (21:30)
[2020-02-04] VITALS (9 sets, daily range): BP systolic 92–118; BP diastolic 50–69; O2SAT 97
[2020-02-04] MEDS: IBUPROFEN 600MG TAB PO PRN ×2 (03:27→18:22)
[2020-02-04 05:28] LABS: HEMATOCRIT 29.6 % (36.0-47.0); MEAN CORPUSCULAR HEMOGLOBIN 29.5 pg (27.0-33.0); MEAN CORPUSCULAR HGB CONC 33.8 g/dl (32.0-36.5); MEAN CORPUSCULAR VOLUME 87.3 fl (80.0-96.0); RED BLOOD COUNT 3.39 10^6/uL (4.00-5.40); WHITE BLOOD COUNT 3.4 10^3/uL (4.0-10.0)
[2020-02-04 05:29] LABS: PLATELET COUNT, AUTOMATED 36 10^3/uL (150-450)
[2020-02-04 05:51] LABS: ALBUMIN 1.9 GM/DL (3.2-5.2); ALT/SGPT 144 U/L (12-78); BILIRUBIN,TOTAL 1.3 MG/DL (0.2-1.0); BLOOD UREA NITROGEN 17 MG/DL (7-18); CALCIUM LEVEL 7.9 MG/DL (8.8-10.2); CARBON DIOXIDE LEVEL 25 MEQ/L (21-32); CHLORIDE LEVEL 105 MEQ/L (98-107); CREATININE FOR GFR 0.54 MG/DL (0.55-1.30); GLOMERULAR FILTRATION RATE > 60.0 (>45); GLUCOSE, FASTING 115 MG/DL (70-100); POTASSIUM SERUM 3.4 MEQ/L (3.5-5.1); SODIUM LEVEL 138 MEQ/L (136-145)
[2020-02-04] MEDS: DOXYCYCLINE HYCLATE 100MG TABLET PO SCH ×2 (08:24→20:14)
[2020-02-04] MEDS: FLUTICASONE PROP 0.05% NASAL SPRAY 16 GM (FLONASE) NARES SCH ×2 (08:24→20:14)
--- NOTE | 2020-02-04 09:13 | REP ---
Clinical: Hypoxia. Comparison: 02/02/2020. Findings: Mediastinum and cardiac silhouette are within normal limits and stable. Scattered interstitial and alveolar infiltrates and suspected small pleural effusions appear increased from prior examination. No pneumothorax. Skeletal structures are stable. Impression: Increasing bilateral alveolar and interstitial infiltrates small suspected pleural effusions. Electronically Signed by Dickson Green MD 02/04/2020 08:08 A
--- NOTE | 2020-02-04 09:13 | CR ---
DATE OF CONSULTATION: 02/03/2020 CHIEF COMPLAINT Fever. HISTORY OF PRESENT ILLNESS: Ms. Lujan is a 69-year-old female with no reported significant medical history who had presented to the emergency department (ED) with initial complaints of worsening fevers, chills, as well as some episodic shortness of breath with exertion for the past month. The patient states about a month ago her had been ill, when she also started feeling unwell; however, he had improved, and she continued to have symptoms. The patient had also complained of some slight abdominal discomfort as well as the nausea and vomiting. She had denied any chest pain. No diarrhea. Had not had any weight loss. The patient did not have any recent travel. Her last international travel was to [place] a few months ago in June. Upon further questioning today , she does report a possible history of tuberculosis when she was a child, for she is unsure if she was treated. She denies any other sick contacts or other exposure to persons with known tuberculosis. The patient denies any pets. Does not have any birds. No exposure to any farm animals or hay. She denies having any rashes. No significant arthralgia symptoms. Initially the patient was admitted for a possible atypical pneumonia. She was given empiric antibiotics with ceftriaxone and azithromycin as well as intravenous (IV) fluids. She had a CT on admission, which did show some subtle ground-glass opacities in the upper lobes bilaterally. She had two COVID-19 PCR testing, which was negative, as well as the COVID antibody being negative. The patient continued to have fevers up to 103 and even after being on broad-spectrum antibiotics to 101.8. Her antibiotics were broadened given the persistent fevers to cefepime and vancomycin the other day Her cultures, including respiratory panel, blood cultures, and sputum cultures, were negative, although her sputum culture was contaminated by oropharyngeal. The patient was noted to have worsening shortness of breath as well as hypoxemic respiratory failure. Initially on admission, she was on room air and then was placed on nasal cannula and now is requiring high-flow nasal cannula oxygen supplementation at about 5-6 liters a minute. She also reports since being admitted she has had no worsening shortness of breath, particularly with exertion. The patient also continues to have some symptoms of chills with her fevers and some headaches. Today she does also report some crampy abdominal pain as well. PAST MEDICAL AND SURGICAL HISTORY: None. FAMILY HISTORY: No pertinent family history. SOCIAL HISTORY: Denies history of tobacco use or alcohol use. Denies any recent travel or sick contacts. Patient is retired. Has no pets in the home. No exposure to any birds, hay, or other farm animals or exposure. Denies any hobbies involving dust or chemicals. ALLERGIES: Seasonal allergies. HOME MEDICATIONS: Augmentin and fluticasone. PHYSICAL EXAMINATION: VITAL SIGNS: Maximal temperature 101.8, pulse 97, respirations 24-40,, blood pressure 128/64, oxygen saturation 89%-93% on 5 liters nasal cannula. Input yesterday 2.2, out of 1.9, net positive 295 mL. GENERAL: The patient is a pleasant female who is lying in bed and is not using any accessory muscles for respiration. Is able to speak in full sentences. The patient does become tachypneic with exertion and does have desaturation. HEENT: Normocephalic, atraumatic. Moist mucous membranes. There is very small mouth opening noted. Neck is supple. Trachea is midline. Unable to palpate any cervical adenopathy. CARDIAC: Regular rate and rhythm. Normal S1, S2. Unable to appreciate any murmurs. PULMONARY: Diminished breath sounds bilaterally with few inspiratory squeaks and crackles. ABDOMEN: Soft. Mild tenderness to palpation in the epigastric region and left lower quadrant. EXTREMITIES: There is no significant lower extremity edema noted bilaterally. There are no rashes noted in the skin. LABORATORY DATA: WBC 3.7, hemoglobin 9.5, platelets 58. Chemistry: Sodium is 141, potassium 3.7, chloride is 110, bicarbonate 23, BUN 14, creatinine 0.57, glucose 149, lactic acid 1.5, calcium 7.5. AST, ALT 109 and 155, alkaline phosphatase 470. LDH, increasing to 1061. Ferritin increasing to 1508. CRP elevated at 25.7. BMP is 304. Albumin is 1.9. Triglycerides 144. Procalcitonin was 0.17 on admission. Fibrinogen 647. D-dimer elevated at 3563. COVID-19 PCR negative. SARS-CoV-2 IgG antibody negative. HIV negative. Chlamydia, pneumonia, IgG, IgA, IgM negative. Hepatitis A, B, and C negative. Mycoplasma IgG positive, IgM negative. Streptococcal pneumonia urine antigen negative. Rheumatoid factor negative. OSCAR negative. Microbiology: Respiratory viral panel negative. Blood cultures no growth to date. Sputum culture not performed due to oropharyngeal contamination. IMAGING: CT chest 01/31/2020: Compared to the initial CT on 01/29/2020, there is a worsening of the bilateral opacities in the upper lobes, which initially showed some ground glass in mosaic attentuation, and now show more patchy ground glass with some nodular component and appears somewhat denser. There is mild diffuse interstitial infiltrate or edema bilaterally and small bilateral pleural effusions, which are new. There is a calcified lymph node in the left hilar region but no significant adenopathy. ASSESSMENT AND PLAN: Ms. Lujan is a 69-year-old female with no significant medical history besides a possible history of tuberculosis as a child, who presented with worsening fevers and chills for the past month as well as with some intermittent shortness of breath and nausea and vomiting. The patient was initially thought to have viral pneumonia versus an atypical pneumonia. She was started with ceftriaxone and azithromycin initially; however, despite being on antibiotics, her inflammatory markers, including ferritin, lactate dehydrogenase (LDH), and C-reactive protein (CRP), continued to be elevated. The patient was also continuing to have fevers up to 101 despite being on antibiotics and despite having been brought in yesterday to meropenem and vancomycin. The patient was also found to have worsening hypoxemic respiratory failure, requiring increasing oxygen support. A repeat CT had shown worsening of the bilateral patchy opacities with some evidence of intralobular septal thickening and new bilateral small pleural effusions. The patient did also have a brain natriuretic peptide (BNP) which was mildly elevated. The patient's worsening hypoxic respiratory failure and findings on imaging may be due to pulmonary edema versus a noncardiogenic pulmonary edema. She has been persistently net positive since her admission. Fever, possibly secondary to an atypical pneumonia. The patient did have workup for chlamydia and mycoplasma, which did not show a current active infection. Streptococcal pneumonia was also negative. The patient may still have other viral infection causing persistent fever, such as the Toya-Dasilva virus (EBV) or Cytomegalovirus (CMV), which may also be associated in particular with her increased inflammatory markers. The patient's inflammatory markers are somewhat borderline for HLH which can be due to infectious etiology with a certain viral etiology as well as to a possible malignancy and even from rheumatologic condition. The patient did have a negative rheumatoid factor and antinuclear antibody (OSCAR); however will check scleroderma antibodies as well as ANCAs and polymyositis ab for rheumatologic work-up The patient does have a possible remote history of tuberculosis, and given her persistent fevers, this is possible etiology, although her CT is less consistent. Atypical mycobacterial infection is also possible given some of her other symptoms and fevers for the past month and chills. Will check purified protein derivative (PPD) and a QuantiFERON and will also get induced sputum and acid- fast bacillus (AFB). Would place the patient on airborne isolation for now. Given her thrombocytopenia, leukopenia, anemia, transaminitis and also persistent fevers and CT findings which may also represent noncardiogenic pulmonary edema; malaria is also in the differential although less likely, which can also cause an elevated LDH and other inflammatory markers. She did not have any travel since Jun however in certain cases of malaria, there can be reactivation from parasites that have been dormant in the liver months and even years later. Will check a peripheral smear for evaluation of malaria as well as other more atypical parasites that can cause fever, such as babesiosis. Patient's procalcitonin was negative, which goes against a bacterial etiology. Her HIV was also negative, although PCP would be consistent with the CT findings and the hypoxic respiratory failure. She did have fungitell testing which is pending, and patient is currently on cefepime and vancomycin. Her methicillin-resistant Staphylococcus aureus (MRSA) screen was negative, and a MRSA pneumonia is less likely. Would consider discontinuing vancomycin and cefepime as bacterial pneumonia unlikely. Would add doxycycline for atypical coverage. Would also consider infectious disease (ID) consult for further evaluation. The patient complaining of some abdominal discomfort. She does have elevated transaminitis and so will also order an abdominal ultrasound as part of the workup for her fever with an unclear etiology. Will give the patient a dose of Lasix 40 mg intravenous (IV) for possible component of cardiogenic pulmonary edema contributing to her worsening imaging and worsening hypoxic respiratory failure. Will continue oxygen supplementation and maintain oxygen saturation above 90%. Would also add incentive spirometer. Deep vein thrombosis (DVT) prophylaxis. Heparin. CODE STATUS: Full code. TOTAL CRITICAL CARE TIME SPENT, NOT INCLUDING PROCEDURES: Approximately 2 hours and 40 minutes. MTDD
[2020-02-04] MEDS ORDERED: ACETAMINOPHEN 500 MG TAB PO ONE (12:00)
[2020-02-04] MEDS: dexameTHASONE 20MG/5ML VIAL (J1100 PER 1MG) IV SCH (12:00)
[2020-02-04] MEDS: VORICONAZOLE 200MG TABLET (VFEND) PO SCH ×2 (12:00→20:14)
[2020-02-04] MEDS: FAMOTIDINE 20 MG TAB PO SCH (12:00)
[2020-02-04] MEDS: KCL 10MEQ/100ML SWI (KRUN) 10 MEQ in IV 1 EA IV SCH ×3 (12:01→14:31)
[2020-02-04 12:05] LABS: PLATELET COUNT, AUTOMATED 32 10^3/uL (150-450)
[2020-02-04 12:11] LABS: INR 1.18; PROTHROMBIN TIME 14.7 SECONDS (11.8-14.0)
[2020-02-04 12:12] LABS: PARTIAL THROMBOPLASTIN TIME 38.7 SECONDS (25.0-38.4)
[2020-02-04 12:41] LABS: IMMUNOGLOBULIN A 84.1 MG/DL (70-400); IMMUNOGLOBULIN M 44.1 MG/DL (40-230)
--- NOTE | 2020-02-04 17:51 | CCN ---
DATE: The patient was seen and examined this morning during bedside rounds. Overnight, the patient was having episodes of desaturation while on high flow nasal cannula. She was started on Vapotherm to help with her hypoxic respiratory failure and also to help with improved comfort given the humidified and warmed air with the Vapotherm. There is also a component of positive pressure therapy that can be obtained with Vapotherm which was thought to perhaps help with some of her shortness of breath and with her respiratory failure. The patient did have a fever overnight to 101.5. She is complaining of myalgias today and chills, in particular when she has her fever. She does continue to have a cough which is nonproductive and she does have shortness of breath with exertion. At rest, however, she states she is not uncomfortable and she does feel the Vapotherm has helped with some of her breathing. PHYSICAL EXAMINATION: VITAL SIGNS: Maximum temperature (T-max) 101.5, current temperature 97.9, pulse 87, respirations 21-29, blood pressure 92/50, oxygen saturation 93% to 97% on Vapotherm at 20 liters a minute at 70% fraction of inspired oxygen (FiO2). Intake 1.6 liters, output 2.4 liters, neg negative 755 mL. GENERAL: The patient is a pleasant female lying in bed, does not appear to be in any acute distress, is not using accessory muscles for respiration. She is able to speak in full sentences. The patient does appear to have tachypnea with exertion and desaturation. HEENT: Normocephalic, atraumatic. Moist mucous membranes. There is a small mouth opening. Neck is supple. Trachea is midline. Unable to palpate any cervical adenopathy. CARDIOVASCULAR: Regular rate and rhythm, normal S1, S2, unable to appreciate any murmurs. PULMONARY: Diminished breath sounds bilaterally with few scattered crackles and squeaks. No significant rhonchi. ABDOMEN: Soft. Mild tenderness in the epigastric region with no distension. Bowel sounds are present. EXTREMITIES: There is no significant lower extremity edema noted bilaterally. There are no rashes or other skin lesions noted. LABORATORY DATA: WBC 3.4, hemoglobin is 10, platelets are 36. Chemistry: Sodium is 138, potassium 3.4, chloride is 105, bicarbonate is 25, BUN 17, creatinine 0.54, glucose 115. Calcium is 7.9, total bilirubin is 1.3, AST 93, ALT 144, alkaline phosphatase 553, albumin is 1.19. IMAGING STUDIES: Abdominal ultrasound showed evidence of cholelithiasis with no apparent cholecystitis. However, she did have a positive sonographic Figueroa's sign during examination. There are small bilateral pleural effusions noted on the ultrasound, left greater than right. Chest x-ray shows possible worsening of the diffuse alveolar opacities bilaterally with small pleural effusions bilaterally. ASSESSMENT AND PLAN: Ms. Lujan is a 69-year-old female with no significant medical history who presented with complaints of worsening fevers and chills for the past month as well as with some myalgias. The patient has a possible history of tuberculosis as a child and it is unknown if she did have treatment or not. She was admitted and treated initially for a viral pneumonia versus atypical pneumonia with ceftriaxone and azithromycin. Despite being on antibiotics, however, she had persistent fevers and her inflammatory markers also continued to be elevated. The patient's antibiotics were broadened to cefepime and vancomycin. Despite this, she continued to have fevers. The patient also had worsening hypoxemic respiratory failure and was requiring increasing amounts of oxygen support. Her imaging also showed worsening bilateral patchy opacities with new small bilateral pleural effusions and some evidence of intraalveolar septal thickening. The opacities appear to be more in the upper lobes bilaterally. Acute hypoxemic respiratory failure. The patient was thought to have a possible component of pulmonary edema versus a noncardiogenic pulmonary edema. She was given Lasix yesterday and has been negative approximately 755 mL. However, there is no significant improvement in her chest x-ray findings or in her oxygenation. The patient's opacities may be secondary to an atypical infectious etiology such as a possible fungal pneumonia or atypical mycobacterial disease. PCT can also present similarly and in particular with the hypoxic respiratory failure. She had a negative HIV test and no known immunodeficiency. 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 Viral pneumonia was also possible given her persistent fevers. However, these are less likely associated with pulmonary disease. She may have a component of possible acute respiratory distress syndrome (ARDS) ad noncardiogenic pulmonary edema, however, secondary to an acute infectious etiology as the cause for her worsening interstitial disease. Other potential etiologies would be for an interstitial lung disease such as a possible rheumatologic or hypersensitivity pneumonitis, although she denies any significant exposure history in the past. We will continue her with Vapotherm and we will titrate to maintain an oxygen saturation above 90%. There is some consideration for a diagnostic bronchoscopy. However, given her worsening thrombocytopenia and increasing oxygen requirements, there is concern that with bronchoscopy she may require intubation and continued mechanical ventilation. She is able to give and do sputums and so if can continue to get induced sputums for testing can hold off on bronchoscopy for now. We will continue to get sputum acid-fast bacillus (AFB) times three given her history of possible tuberculosis, although this is less likely. The patient did have a purified protein derivative (PPD) placed yesterday which will be read tomorrow. She also had a QuantiFERON ordered which is pending. We will followup the results of the Fungitell for a possible fungal pneumonia. We will also check the fungal titers of Histoplasma, Cryptococcus, Blastomycosis, and Coccidiomycosis. We will also check a sputum cytology for pneumocystis carinii pneumonia (PCP). Given concern for possible underlying immunodeficiency, we will check CD4 count as well as IgG, IgA and IgM. The patient also has significantly elevated inflammatory markers which may potentially be consistent with early hemophagocytic lymphohistiocytosis (HLH) particularly given hyperferritinemia and elevated lactic acid dehydrogenase (LDH) as well as with the transaminitis and cytopenias. Toya-Dasilva virus (EBV), cytomegalovirus (CBV) testing is still pending. Given the significant inflammatory nature of her disease, suspect she would benefit from steroids. This would also treat for any possible rheumatologic etiology as well. Given concern for fungal pneumonia as the patient is going to be on empiric steroids, would also treat empirically with voriconazole. We will start dexamethasone 8 mg IV twice a day and will start voriconazole 200 mg twice a day with close monitoring of liver function tests. Given her worsening thrombocytopenia as well as leukopenia and anemia, the patient may benefit from a hematology consult and consideration of bone marrow biopsy. Her peripheral smear is still pending the evaluation. Malaria test preliminary was negative. We will followup results of the anti-neutrophil cytoplasmic antibodies (ANCAs) and scleroderma antibodies as well as the polymyositis antibodies. We will discontinue the cefepime as that may be potentially situating some of her thrombocytopenia. Would get infectious disease (ID) consult in the a.m. Continue with doxycycline for more atypical coverage. Deep vein thrombosis (DVT) prophylaxis with thromboembolic-deterrent stockings (TEDS) and sequential compression device (SCD) given thrombocytopenia. Code status: Full code. Total critical care time spent not including procedure time: Approximately 50 minutes.
[2020-02-05] VITALS (9 sets, daily range): BP systolic 90–126; BP diastolic 52–63
[2020-02-05] MEDS: dexameTHASONE 20MG/5ML VIAL (J1100 PER 1MG) IV SCH ×3 (00:38→18:28)
[2020-02-05 05:14] LABS: HEMATOCRIT 28.4 % (36.0-47.0); HEMOGLOBIN 9.5 g/dl (12.0-15.5); MEAN CORPUSCULAR HEMOGLOBIN 29.1 pg (27.0-33.0); MEAN CORPUSCULAR HGB CONC 33.5 g/dl (32.0-36.5); MEAN CORPUSCULAR VOLUME 87.1 fl (80.0-96.0); RED BLOOD COUNT 3.26 10^6/uL (4.00-5.40); WHITE BLOOD COUNT 3.2 10^3/uL (4.0-10.0)
[2020-02-05 05:15] LABS: PLATELET COUNT, AUTOMATED 27 10^3/uL (150-450)
[2020-02-05 05:45] LABS: ALBUMIN 1.9 GM/DL (3.2-5.2); ALT/SGPT 191 U/L (12-78); BILIRUBIN,TOTAL 1.6 MG/DL (0.2-1.0); BLOOD UREA NITROGEN 27 MG/DL (7-18); CALCIUM LEVEL 8.1 MG/DL (8.8-10.2); CARBON DIOXIDE LEVEL 20 MEQ/L (21-32); CHLORIDE LEVEL 109 MEQ/L (98-107); GLOMERULAR FILTRATION RATE > 60.0 (>45); GLUCOSE, FASTING 136 MG/DL (70-100); NT-PRO BNP 81 PG/ML (<125); POTASSIUM SERUM 3.7 MEQ/L (3.5-5.1); SODIUM LEVEL 137 MEQ/L (136-145)
--- NOTE | 2020-02-05 07:56 | IPN ---
DATE OF PROCEDURE: 02/04/2020 This is a 69-year-old Northern [place]-speaking female who had no significant previous medical history who was admitted from the emergency room (ER) after having approximately 1 month of fevers, chills, nausea, vomiting and episodic shortness of breath. She was found to have ground-glass opacities on CT. She has been tested twice for COVID and found to be negative. She has had worsening hypoxia and is now on high flow nasal cannula. She is having episodic shortness of breath. She has had no recent international travel. She was in [place] in June of 2019. She has a possible history of tuberculosis (TB) as a child. She was unsure if she was treated. Does not have any birds. She has no exposure to any farm animals or hay. She denies any rashes. She has had empiric ceftriaxone and azithromycin IV and is currently on doxycycline to cover atypical pneumonia. Cultures including respiratory panel, blood cultures and sputum cultures have been negative. She is currently on Vapotherm titrating 93-94%. LABORATORY STUDIES TODAY: Sodium 138, potassium 3.4, replacement has been ordered. Chloride 105, CO2 25, anion gap 8. BUN 17, creatinine 0.54, glucose 115, calcium 7.9. Total bilirubin 1.3. AST is slightly improved at 97, ALT is slightly improved at 144, alkaline phosphatase is elevated at 553. White count remains low at 3.4, hemoglobin 10, hematocrit 29.6, platelet count continues to decrease, it is down to 36. A repeat has been ordered. Her most recent D-dimer was 3563. Fibrinogen is elevated at 647. INR is normal at 1.18. PTT up slightly at 36.7. Chest x-ray today shows increasing bilateral alveolar and interstitial infiltrates. Small suspected pleural effusions. Abdominal ultrasound yesterday for fever and sepsis minimal abdominal tenderness showed cholelithiasis without sonographic evidence of acute cholecystitis, pleural effusions left greater than right. Maximum temperature (T-max) in the last [address] Merida has been consulted and appreciate all of her recommendations. PHYSICAL EXAMINATION: Blood pressure 118/69, pulse 91, respirations 32 on Vapotherm O2 flow rate 20, FiO2 70%, temperature 99.1. Patient is alert. Pupils react to light. Extraocular muscles intact. Conjunctiva is normal. No facial asymmetry. Pharynx and gums pink and moist. Tongue is midline. Neck is supple without lymphadenopathy, thyromegaly or goiter. Carotids 2+ without bruit. Chest: Decreased breath sounds. A few inspiratory crackles. No wheeze or retractions. Heart is regular without murmur or gallop. Abdomen has mild mid upper gastric tenderness. No rebound or guarding. No masses pulsations or bruits. No organomegaly. Bowel sounds are positive. Genitourinary/Rectal not done. Extremities: No cyanosis, clubbing or edema. Peripheral pulses equal and palpable bilaterally. IMPRESSION AND PLAN: 1. Fever, ground-glass opacities on CTA and chest x-ray worsening. Appreciate Dr. Merida's input. Followup on sputum for acid fast bacillus, followup on TB GOLD. Continue antibiotics. 2. Possible pneumonia: Respiratory panel negative. Continue oxygen, Vapotherm, respiratory treatments. Will plan consult with infectious disease, Dr. Woodward. 3. Transaminitis: AST and ALT slightly improved. Continue monitor. 4. Bicytopenia worsening: Platelets decreasing. Will obtain consult. 5. Hypocalcemia: Replacement ordered. Recheck potassium in the a.m. MTDD
[2020-02-05] MEDS: VORICONAZOLE 200MG TABLET (VFEND) PO SCH ×2 (08:27→20:20)
[2020-02-05] MEDS: DOXYCYCLINE HYCLATE 100MG TABLET PO SCH ×2 (08:27→20:20)
[2020-02-05] MEDS: FLUTICASONE PROP 0.05% NASAL SPRAY 16 GM (FLONASE) NARES SCH ×2 (08:27→20:20)
[2020-02-05] MEDS: FAMOTIDINE 20 MG TAB PO SCH (08:27)
[2020-02-05] MEDS ORDERED: NS 500 ML IV ONE (09:30)
[2020-02-05 10:42] LABS: FERRITIN 2304 NG/ML (8-252); LDH LACTATE DEHYDROGENASE 1360 U/L (84-246)
[2020-02-05] MEDS ORDERED: MAALOX 30 ML SUSP *UDC PO PRN (12:30)
--- NOTE | 2020-02-05 12:54 | CCN ---
DATE: 02/05/2020 The patient was seen and examined this morning during bedside rounds. Yesterday, the patient was started on dexamethasone as well as voriconazole. Overnight she has now been 24 hours without fever, which appears to be the first since her admission, where she was having fevers the daily. She states that she does continue to have some generalized myalgia as well as shortness of breath and dyspnea, particularly with exertion. Overnight she did require increase of her FiO2 on the Vapotherm for some desaturation. This morning she has been maintaining her saturation on the Vapotherm at 80% FiO2 on 20 liters a minute. The patient does continue to complain of some mild epigastric tenderness and discomfort, although she states she has been eating well for the most part. She does continue to have a cough, which is nonproductive. Yesterday she was able to give us induced sputum with hypertonic saline. After she had her sputum induction, she had was noticing some dripping sensation from inside her nose, and then when she coughed she had a pea-sized amount of blood and mucus. Since then, she has not had any further episodes. PHYSICAL EXAMINATION: VITAL SIGNS: Temperature 97.5, pulse 78, respirations 27, blood pressure 90/52, oxygen saturation 93% on Vapotherm at 80% FiO2 and 20 liters a minute. In 1.6 liters, out 925. GENERAL: The patient is a pleasant female who is lying in bed. Does not appear to be a acute distress. She is able to speak in full sentences and does not appear to be using any accessory muscles for respiration. The patient does appear tachypneic and has desaturation with minimal exertion. HEENT: Normocephalic, atraumatic. Moist mucous membranes. The patient has a small mouth opening. Neck is supple. Trachea is midline. Unable to palpate any cervical adenopathy. CARDIOVASCULAR: Regular rate and rhythm. Normal S1, S2. Unable to appreciate any murmurs. PULMONARY: Some coarse breath sounds bilaterally with a few crackles scattered but no significant wheezing or rhonchi. ABDOMEN: Soft. The patient has tenderness in the epigastric region. There is no distension. Bowel sounds are present. LOWER EXTREMITIES: There is no significant lower extremity was noted bilaterally. The patient has no new rashes or skin lesions noted. LABORATORIES: WBC 3.2, hemoglobin and 9.5, platelets of 27. Chemistry: Sodium is 137, potassium 3.7, chloride is 109, bicarbonate 20, BUN 27, creatinine 0.70, glucose 136, calcium 8.1. AST 177, ALT 191, alkaline phosphatase 673, total bilirubin 1.6, albumin is 1.9. CRP 25.3. IgG 526, IgM and IgA within normal limits. Microbiology: Sputum AFB smear is negative. ASSESSMENT AND PLAN: Ms. Lujan is a 69-year-old female with no significant medical history who presented with complains of worsening fevers and chills for the past month as well as with myalgias. The patient was admitted and treated initially for a viral pneumonia versus atypical pneumonia ceftriaxone and azithromycin. She had persistent fevers, however, and increasing inflammatory markers, and her antibiotics were broadened to cefepime and vancomycin. Despite this, the patient continued to have daily fevers and developed worsening hypoxemic respiratory failure. Her imaging also showed worsening bilateral patchy opacities, mostly in the upper lobes as well as new small bilateral pleural effusions and some evidence of intralobular septal thickening. 1. Acute hypoxemic respiratory failure, thought to have a possible component of pulmonary edema versus a noncardiogenic pulmonary edema. The patient was given Lasix IV and was negative, however, did not have significant improvement in her oxygenation or in her x-ray findings. Her brain natriuretic peptide (BNP) was also only minimally elevated. The patient's opacities were then thought to be secondary to an atypical infectious etiology, such as a fungal pneumonia or an atypical mycobacterial disease. Pneumocystis pneumonia (PCP) can present similarly and also present with hypoxic respiratory failure; however, she has a negative HIV test and no known immunodeficiency. 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 - Given concern for possible PCP pneumonia, and while her CD4 count is pending, will start her on empiric Bactrim with close monitoring of renal function and electrolytes. - The patient was suspected to have a possible viral etiology given her persistent fevers as well as with borderline hemophagocytic lymphohistiocytosis (HLH). Toya-Dasilva virus (EBV) and Cytomegalovirus (CMV) are still pending, although this is also less likely associated with pneumonia. - The patient is still pending other fungal pneumonia testing with Fungitell as well as a Histoplasma, Cryptococcus, Blastomycosis, and Coccidiomycosis. She is on empiric voriconazole, which we will continue with monitoring of LFTs - We will followup results of sputum cytology for pneumocystis - We will continue the patient on dexamethasone given her significantly elevated inflammatory markers with possible early or borderline HLH. The dexamethasone would also treat for possible connective tissue interstitial lung disease, although this is less likely. Her rheumatoid factor and antinuclear antibody (OSCAR) were negative, but antineutrophil cytoplasmic antibodies (ANCA) and hypersensitivity pneumonitis panel and scleroderma and polymyositis antibodies are still pending. - The patient has questionable history of tuberculosis as a child. She did have a purified protein derivative (PPD) placed, which is due to be read this evening at 7 p.m. Currently, there does not appear to be any significant induration, and so suspect she will have a negative PPD. Her first sputum acid-fast bacillus (AFB) smear was negative. She did have a second one sent yesterday and is due for a third sputum AFB today. - The patient does continue to persistent thrombocytopenia as well as anemia and leukopenia. She may benefit from a hematology consult and consideration of a bone marrow biopsy. Her peripheral smear evaluation is still pending. - The patient is still pending an infectious disease (ID) consult for further recommendations. For now, we will continue her on the doxycycline and the voriconazole. Empiric Bactrim is added, and she will also be on dexamethasone, which will be increased to 8 mg every 8 hours. Deep vein thrombosis (DVT) prophylaxis. Thromboembolic deterrent stockings (TEDs) and sequential compression devices (SCDs). CODE STATUS: Full code. TOTAL CRITICAL CARE TIME SPENT, NOT INCLUDING PROCEDURES: Approximately 45 minutes MTDD
--- NOTE | 2020-02-05 13:19 | IPNPDOC ---
Date Seen The patient was seen on 02/05/20. Progress Note SUBJECTIVE: Roxy reports her breathing feels as though it has gotten worse. She reports she is breathing "more quickly" and feels as though she gets short of breath a lot more easily when she gets up from bed. She also reports worsening abdominal pain, mostly in her epigastric region. She is not having any diarrhea but she is having some nausea. Otherwise, she had no complaints. All of her questions were answered. She is in good spirits this morning. OBJECTIVE PHYSICAL EXAMINATION: VITAL SIGNS: Please see below. GENERAL APPEARANCE: Laying in bed, appears stated age, no acute distress, calm, cooperative HEENT: EOMI, PERRLA, neck is supple with no thyromegaly or lymphadenopathy RESPIRATORY: Lungs are clear to auscultation bilaterally with no adventitious breath sounds appreciated CARDIOVASCULAR: no JVD, RRR, no murmurs/rubs/gallops, normal S1 and S2 ABDOMEN: +BS, soft, slightly tender to palpation in epigastrum, no masses/organomegaly EXTREMITIES: no clubbing, cyanosis or edema noted NEUROLOGICAL: CN 2-12 intact, No obvious focal deficits PSYCHIATRIC: normal mood/affect Skin: No rashes or ulcers appreciated, warm and well-perfused LN: No significant cervical or inguinal lymphadenopathy LABORATORY DATA, IMAGING STUDIES, MICROBIOLOGY: Please see below. DVT prophylaxis ordered?: TEDS/SCDs ASSESSMENT AND PLAN: This is a 69-year-old female with history of fevers and chills progressively worsening over the past month, and episodic subjective shortness of breath, found to have elevated inflammatory markers, concerning for viral versus bacterial pneumonia. She is COVID-19 negative. PROBLEMS: 1. Fever of unknown origin: concerning for acute viral PNA vs atypical PNA vs reactivated TB vs malignancy -Ground glass opacities found on CTA and chest x-ray. Also concerning for fluid overload -s/p Lasix x2. Sufficient UOP. Net negative -300cc -Most recent ABG demonstrates respiaratory alkalosis likely 2/2 hyperventilation (7.531/) -Now on 80%FiO2 Vapotherm 20L saturating in the low 90s. She has had a steady increase in oxygen requirement over the past 3-4 days. -Sputum AFB negative for growth -Blood cultures no growth to date -Inflammatory markers (Ferritin, LDH, CRP) increasing. Will continue to trend. Concerning for HLH -Current empiric treatment: Voriconazole, Doxycycline, Dexamethasone -Infectious disease consulted. Appreciate recommendations 2. Possible PNA -s/p Ceftriaxone and Azithromycin x 3 days. Changed to Cefepime/Vanc x 1 day. Now changed to oral Doxycycline to cover atypicals -Pro calcitonin found to be 0.17, therefore less likely bacterial infection -Respiratory panel found to be negative -Mycoplasma pneumonia IgG found to be elevated. May suggest history of infection, but not necessarily current infection -Quant Gold test, PPD, Legionella, EBV, CMV, Scleroderma ordered to rule out atypical pathology -Continue Tylenol, ibuprofen for fevers -MDI resp treatment as needed 3. Tranaminitis: -Liver function stable. Will continue to monitor 4. Thrombocytopenia: likely 2/2 infection vs antibiotics -Medical Oncology consulted. Appreciate recommendations DISPOSITION: pending clinical improvement. Attending attestation: I evaluated and examined the patient in person; I discussed the care with Resident in detail and agree with the plan above. VS, I&O, 24H, Fishbone Vital Signs/I&O Vital Signs Date Time Temp Pulse Resp B/P (MAP) Pulse Ox O2 Delivery O2 Flow Rate FiO2 02/05/20 10:00 91 28 104/57 (73) 92 HVNI-Vapotherm 20.0 80 02/05/20 08:00 97.7 I&O- Last 24 Hours up to 6 AM 02/05/20 06:00 Intake Total 1200 ml Output Total 550 ml Balance 650 ml Laboratory Data 24H LABS Laboratory Tests 2 02/05/20 05:00: Nucleated Red Blood Cells % (auto) 0.9H, D-Dimer, Quantitative 1757.57H, Anion Gap 8, Glomerular Filtration Rate > 60.0, Calcium Level 8.1L, Ferritin 2304H, Total Bilirubin 1.6H, Aspartate Amino Transf (AST/SGOT) 177H, Alanine Aminotransferase (ALT/SGPT) 191H, Alkaline Phosphatase 673H, Lactate Dehydrogenase 1360H, C-Reactive Protein, Quantitative 25.30H, CF-Fye-K-Type Natriuretic Peptide 81, Total Protein 5.0L, Albumin 1.9L, Albumin/Globulin Ratio 0.6L CBC/BMP Laboratory Tests 02/05/20 05:00 Microbiology Microbiology 02/04/20 Malaria Smear ([facility]) - Final, Complete 02/03/20 Acid Fast Stain - Final, Resulted 02/03/20 Mycobacterial Culture, Resulted Pending 02/01/20 Gram Stain - Final, Complete 02/01/20 Sputum Culture - Final, Complete 01/30/20 Gram Stain - Final, Complete 01/30/20 Sputum Culture - Final, Complete 01/30/20 Respiratory Virus Panel (PCR) ([facility]) - Final, Complete 01/28/20 Blood Culture - Final, Complete NO GROWTH AFTER 5 DAYS 01/28/20 Blood Culture - Final, Complete NO GROWTH AFTER 5 DAYS 01/28/20 - Final, Complete GME ATTESTATION GME ATTESTATION My faculty preceptor for this patient encounter was physically present during the encounter and was fully available. All aspects of the patient interview, examination, medical decision making process, and medical care plan development were reviewed and approved by the faculty preceptor. The faculty preceptor is aware and concurs with the plan as stated in the body of this note and will attest to such by his/her cosignature. MORGAN BEACH MD February 05, 2020 12:45 JIM JOYNER MD February 05, 2020 22:02
[2020-02-05] MEDS ORDERED: PPD DOCUMENTATION ENTRY MISC XX ONE (16:00)
[2020-02-05] MEDS: IBUPROFEN 600MG TAB PO PRN (18:28)
[2020-02-05] MEDS ORDERED: RAMELTEON 8 MG TAB (ROZEREM) PO PRN (19:30)
[2020-02-06] VITALS (29 sets, daily range): BP systolic 87–128; BP diastolic 50–78
[2020-02-06] MEDS: dexameTHASONE 20MG/5ML VIAL (J1100 PER 1MG) IV SCH ×3 (01:07→17:07)
[2020-02-06 04:18] LABS: HEMATOCRIT 28.1 % (36.0-47.0); HEMOGLOBIN 9.6 g/dl (12.0-15.5); MEAN CORPUSCULAR HEMOGLOBIN 29.6 pg (27.0-33.0); MEAN CORPUSCULAR HGB CONC 34.2 g/dl (32.0-36.5); MEAN CORPUSCULAR VOLUME 86.7 fl (80.0-96.0); RED BLOOD COUNT 3.24 10^6/uL (4.00-5.40); WHITE BLOOD COUNT 5.3 10^3/uL (4.0-10.0)
[2020-02-06 04:32] LABS: D-DIMER QUANT 2291.35 ng/ml (<500)
[2020-02-06 04:44] LABS: PLATELET COUNT, AUTOMATED 31 10^3/uL (150-450)
[2020-02-06 04:52] LABS: ALBUMIN 1.8 GM/DL (3.2-5.2); BILIRUBIN,DIRECT 1.4 MG/DL (0.0-0.2); BILIRUBIN,TOTAL 2.2 MG/DL (0.2-1.0); C REACTIVE PROTEIN QUANTITATIV 22.7 MG/DL (0.00-0.30); CREATININE FOR GFR 1.12 MG/DL (0.55-1.30); GLOMERULAR FILTRATION RATE 51.5 (>45); POTASSIUM SERUM 4.1 MEQ/L (3.5-5.1); TOTAL PROTEIN 4.8 GM/DL (6.4-8.2)
[2020-02-06 04:54] LABS: ATYPICAL LYMPH 3 % (0-5); LYMPHOCYTES 13 % (16-44); METAMYELOCYTES 2 % (0-0); MONOCYTES 4 % (0-5); NEUTROPHILS 76 % (28-66); PLATELET ESTIMATE MARKED DECREASE (NORMAL); POLYCHROMASIA 1+
[2020-02-06] MEDS: VORICONAZOLE 200MG TABLET (VFEND) PO SCH (08:15)
[2020-02-06] MEDS: FLUTICASONE PROP 0.05% NASAL SPRAY 16 GM (FLONASE) NARES SCH ×2 (08:24→21:00)
[2020-02-06] MEDS: DOXYCYCLINE HYCLATE 100MG TABLET PO SCH ×2 (08:24→21:00)
--- NOTE | 2020-02-06 08:28 | CR.PDOC ---
General Date of Consultation: February 06, 2020 Referring Provider: MORGAN BEACH MD Attending Physician: JIM JOYNER MD Consultation HEMATOLOGY REASON FOR CONSULTATION/CHIEF COMPLAINT: Pancytopenia and hyperpyrexia HISTORY OF PRESENT ILLNESS: Patient was admitted on January 28 after having fevers approximately 4 weeks' duration, chills and progressive shortness of breath. Patient's last international travel was to [place] in June 2019. Patient's history is remarkable for history of tuberculosis with report of having been treated. Patient's admitting white blood cell count was 4.4 with a drop into the threes. And is presently 5.3 today Patient's admitting hemoglobin was 10.6 currently 9.6 Patient's admitting platelet count was 118,000 which slowly dropped down to 27 and then margaret to 31,000 today. 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 Tuberculosis reactivation or chronic disease is being evaluated with a QuantiFERON Gold Patient is also being worked up for autoimmune causes with a negative OSCAR and negative rheumatoid factor Patient's been given multiple antibiotics since admission including: azithromycin from January 28 through the Ceftriaxone January 28 through the of Cefepime February 01 Bactrim February 05 Vancomycin February 01 Voriconazole as of February 03 Remains on doxycycline 100 mg twice a day as of February 02 Patient did not receive any heparin and has been on one dose of Lovenox on January 28 Patient is currently on dexamethasone 8 mg every 8 ALLERGIES: Please see below. HOME MEDICATIONS: Please see below. PAST MEDICAL HISTORY: Tuberculosis in the past PAST SURGICAL HISTORY: Patient denies FAMILY HISTORY: No contributory family history elicited per chart SOCIAL HISTORY: Denies history of tobacco use or alcohol use. Patient is retired. Has no pets in the home. No exposure to any birds, hay, or other farm animals or exposure. Denies any hobbies involving dust or chemicals. REVIEW OF SYSTEMS: As listed above and documented in chart PHYSICAL EXAMINATION: Given the fact that I have not been fitted tested with the N95 mask and patient had tuberculosis in the past and a diagnosis is still a possibility, there is no advantage for me to examine the patient at this time given that hematologic assessment plan can be made without seeing the patient at this time. LABORATORY DATA: Please see below. ASSESSMENT/PLAN: This pleasant 69-year-old female was admitted with prolonged prodromal symptoms with mainly respiratory compromise and hyperpyrexia as well as fatigue and malaise. Patient presented with pancytopenia on the . Patient's platelet count has stabilized at 31,000 today and hemoglobin is stable 9.6. Patient responded to steroids and white blood cell count is now 5.3. From a hematologic standpoint this is not a fever of unknown origin since we have a respiratory origin and respiratory compromise Is no advantage for bone marrow biopsy and aspiration at this time as it will not change our management at this time nor will it likely give us useful diagnostic information. Clinical picture is consistent with some form of systemic illness and suspect infectious origin. Infectious disease physician is consult to see the patient is well. The kinetics of the blood counts will drive whether or not we need to proceed with bone marrow biopsy and aspiration as well as clinical condition. Await QuantiFERON Gold testing results PLAN Continue comprehensive search for etiology of her symptoms No utility for bone marrow biopsy and aspiration at this time as does not appear that were dealing with a primary bone marrow disorder Fever of unknown origin is not unknown, patient is having respiratory illness. This unfortunate patient is not stable enough for bronchoscopy at this time I will follow along with you Vital Signs/I&O Vital Signs Date Time Temp Pulse Resp B/P (MAP) Pulse Ox O2 Delivery O2 Flow Rate FiO2 02/06/20 04:00 97.6 87 26 93/56 (68) 92 HVNI-Vapotherm 25.0 85 I&O- Last 24 Hours up to 6 AM 02/06/20 06:00 Intake Total 1010 ml Output Total 1150 ml Balance -140 ml Laboratory Data Labs 24H Laboratory Tests 2 02/06/20 04:11: Immature Granulocyte % (Auto) , Neutrophils (%) (Auto) , Nucleated Red Blood Cells % (auto) 8.0H, Neutrophils 76H, Band Neutrophils 2, Lymphocytes (Manual) 13L, Monocytes (Manual) 4, Metamyelocytes 2H, Atypical Lymphocytes 3, Polychromasia 1+, Platelet Estimate MARKED DECREASE, Immature Platelet Fraction 10.8H, Fibrinogen 709H, D-Dimer, Quantitative 2291.35H, Anion Gap 10, Glomerular Filtration Rate 51.5, Calcium Level 8.0L, Total Bilirubin 2.2H, Direct Bilirubin 1.4H, Aspartate Amino Transf (AST/SGOT) 327H, Alanine Aminotransferase (ALT/SGPT) 259H, Alkaline Phosphatase 698H, Lactate Dehydrogenase 2633H, C- Reactive Protein, Quantitative 22.70H, Total Protein 4.8L, Albumin 1.8L, Albumin/Globulin Ratio 0.6L CBC/BMP Laboratory Tests 02/06/20 04:11 Microbiology Microbiology 02/04/20 Malaria Smear ([facility]) - Final, Complete 02/03/20 Acid Fast Stain - Final, Resulted 02/03/20 Mycobacterial Culture, Resulted Pending 02/01/20 Gram Stain - Final, Complete 02/01/20 Sputum Culture - Final, Complete 01/30/20 Gram Stain - Final, Complete 01/30/20 Sputum Culture - Final, Complete 01/30/20 Respiratory Virus Panel (PCR) ([facility]) - Final, Complete 01/28/20 Blood Culture - Final, Complete NO GROWTH AFTER 5 DAYS 01/28/20 Blood Culture - Final, Complete NO GROWTH AFTER 5 DAYS 01/28/20 - Final, Complete Allergies Coded Allergies: SEASONAL ALLERGIES (Verified Allergy, Unknown, 01/28/20) Home Medications Scheduled Amoxicillin/Potassium Clav (Augmentin 875-125 Tablet) 1 Each Tablet, 1 TAB PO BID, (Reported) PRESCRIBED ON 01/23/2020 Fluticasone Propionate (Fluticasone Propionate) 16 Gm Cross [place]chor.susp, 1 SPRAY NARES BID for 30 Days, (Reported) PRESCRIBED 01/23/2020 JOSEPH CHAUDHARI MD February 06, 2020 08:28
[2020-02-06] MEDS ORDERED: PANTOPRAZOLE 40MG TAB (PROTONIX) PO SCH (09:00)
[2020-02-06] MEDS: BACTRIM 160MG/800MG DS TAB PO SCH ×3 (09:07→22:00)
--- NOTE | 2020-02-06 11:40 | IPNPDOC ---
Date Seen The patient was seen on 02/06/20. Progress Note SUBJECTIVE: Roxy is in good spirits this morning. Isolation precautions have been removed. She states that she hasn't noticed much difference in her breathing, but still feels as though she can only take shorter breaths. She does still get short of breath when moving around. She states that her abdominal pain is better and she is able to eat, just very small amounts due to lack of appetite. She denies any nausea/vomiting/diarrhea. She did have a low fever yesterday evening. Otherwise, she is very pleasant and reports that she is very trustful of her doctors at this time. OBJECTIVE PHYSICAL EXAMINATION: VITAL SIGNS: Please see below. GENERAL APPEARANCE: Laying in bed, appears stated age, no acute distress, calm, cooperative HEENT: EOMI, PERRLA, neck is supple with no thyromegaly or lymphadenopathy RESPIRATORY: Lungs are clear to auscultation bilaterally with no adventitious breath sounds appreciated CARDIOVASCULAR: no JVD, RRR, no murmurs/rubs/gallops, normal S1 and S2 ABDOMEN: +BS, soft, nontender to palpation, no masses/organomegaly EXTREMITIES: no clubbing, cyanosis or edema noted NEUROLOGICAL: CN 2-12 intact, No obvious focal deficits PSYCHIATRIC: normal mood/affect Skin: No rashes or ulcers appreciated, warm and well-perfused LN: No significant cervical or inguinal lymphadenopathy LABORATORY DATA, IMAGING STUDIES, MICROBIOLOGY: Please see below. DVT prophylaxis ordered?: TEDS/SCDs ASSESSMENT AND PLAN: This is a 69-year-old female with history of fevers and c hills progressively worsening over the past month, and episodic subjective shortness of breath, found to have elevated inflammatory markers, concerning for viral versus bacterial pneumonia. She is COVID-19 negative. PROBLEMS: 1. Fever of unknown origin: concerning for acute viral PNA vs atypical PNA vs reactivated TB vs malignancy -Ground glass opacities found on CTA and chest x-ray. Also concerning for fluid overload -s/p Lasix x2. Sufficient UOP. Net negative -140cc -Most recent ABG demonstrates respiaratory alkalosis likely 2/2 hyperventilation (7.531/24/68) -Now on 70%FiO2 Vapotherm 25L saturating in the low 90s. She has had a steady increase in oxygen requirement over the past 3-4 days. -Sputum AFB negative for growth -Blood cultures no growth to date -Inflammatory markers (Ferritin, LDH, CRP) increasing. Will continue to trend. Concerning for HLH -Current empiric treatment: Voriconazole, Doxycycline, Dexamethasone, Bactrim -Infectious disease consulted. Appreciate recommendations -Albumin ordered this AM, as albumin consistently low at 1.8 2. Possible PNA -s/p Ceftriaxone and Azithromycin x 3 days. Changed to Cefepime/Vanc x 1 day. Now changed to oral Doxycycline to cover atypicals -Pro calcitonin found to be 0.17, therefore less likely bacterial infection -Respiratory panel found to be negative -Mycoplasma pneumonia IgG found to be elevated. May suggest history of i nfection, but not necessarily current infection -Quant Gold test, PPD, Legionella, EBV, CMV, Scleroderma ordered to rule out atypical pathology -Continue Tylenol, ibuprofen for fevers -MDI resp treatment as needed 3. Tranaminitis: -Liver function worsening. Will continue to monitor -HLH score 122 points, or 5-9% probability of HLH at this point in time 4. Thrombocytopenia: likely 2/2 infection vs antibiotics -Medical Oncology consulted. Appreciate recommendations DISPOSITION: pending clinical improvement. Attending attestation: I evaluated and examined the patient in person; I discussed the care with Resident in detail and agree with the plan above. VS, I&O, 24H, Fishbone Vital Signs/I&O Vital Signs Date Time Temp Pulse Resp B/P (MAP) Pulse Ox O2 Delivery O2 Flow Rate FiO2 02/06/20 09:20 98.9 90 28 98/55 90 HVNI-Vapotherm 25.0 85 I&O- Last 24 Hours up to 6 AM 02/06/20 06:00 Intake Total 1010 ml Output Total 1150 ml Balance -140 ml Laboratory Data 24H LABS Laboratory Tests 2 02/06/20 04:11: Immature Granulocyte % (Auto) , Neutrophils (%) (Auto) , Nucleated Red Blood Cells % (auto) 8.0H, Neutrophils 76H, Band Neutrophils 2, Lymphocytes (Manual) 13L, Monocytes (Manual) 4, Metamyelocytes 2H, Atypical Lymphocytes 3, Polych romasia 1+, Platelet Estimate MARKED DECREASE, Immature Platelet Fraction 10.8H, Fibrinogen 709H, D-Dimer, Quantitative 2291.35H, Anion Gap 10, Glomerular Filtration Rate 51.5, Calcium Level 8.0L, Total Bilirubin 2.2H, Direct Bilirubin 1.4H, Aspartate Amino Transf (AST/SGOT) 327H, Alanine Aminotransferase (ALT/SGPT) 259H, Alkaline Phosphatase 698H, Lactate Dehydrogenase 2633H, C- Reactive Protein, Quantitative 22.70H, Total Protein 4.8L, Albumin 1.8L, Albumin/Globulin Ratio 0.6L CBC/BMP Laboratory Tests 02/06/20 04:11 Microbiology Microbiology 02/05/20 Fungal Smear, Received Pending 02/05/20 Fungal Culture, Received Pending 02/04/20 Malaria Smear ([facility]) - Final, Complete 02/03/20 Acid Fast Stain - Final, Resulted 02/03/20 Mycobacterial Culture, Resulted Pending 02/01/20 Gram Stain - Final, Complete 02/01/20 Sputum Culture - Final, Complete 01/30/20 Gram Stain - Final, Complete 01/30/20 Sputum Culture - Final, Complete 01/30/20 Respiratory Virus Panel (PCR) ([facility]) - Final, Complete 01/28/20 Blood Culture - Final, Complete NO GROWTH AFTER 5 DAYS 01/28/20 Blood Culture - Final, Complete NO GROWTH AFTER 5 DAYS 01/28/20 - Final, Complete GME ATTESTATION GME ATTESTATION My faculty preceptor for this patient encounter was physically present during the encounter and was fully available. All aspects of the patient interview, examination, medical decision making process, and medical care plan development were reviewed and approved by the faculty preceptor. The faculty preceptor is aware and concurs with the plan as stated in the body of this note and will attest to such by his/her cosignature. MORGAN BEACH MD February 06, 2020 11:40 JIM JOYNER MD Feb 14, 2020 20:11
[2020-02-06 17:30] LABS: CALCIUM LEVEL 8.6 MG/DL (8.8-10.2); CREATININE FOR GFR 1.38 MG/DL (0.55-1.30); GLOMERULAR FILTRATION RATE 40.5 (>45)
[2020-02-06 19:52] LABS: ABG BASE EXCESS -5.4 (-2.0-2.0); ABG HCO3 16.2 MEQ/L (22.0-26.0); ABG O2 SATURATION 97.7 % (95.0-99.0); ABG PARTIAL PRESSURE O2 103.6 mmHg (75.0-100.0); ABG TOTAL CO2 16.8 MEQ/L (23.0-31.0); ABG pH (ARTERIAL) 7.504 UNITS (7.350-7.450)
[2020-02-06] MEDS ORDERED: NOREPINEPHRINE 4 MG/4 ML AMP As Ordered ONE (20:11)
--- NOTE | 2020-02-06 20:17 | IPNPDOC ---
Text Note Date of Service The patient was seen on 02/06/20. NOTE called by RN, pt complaining of CP and SOB which was progressively getting wo rse, pt became tachycardic, hypoxic and hypotensive. Spoke with patient, all risks and benefits of intubation explained to her and she agreed for intubation Anesthesiology called for intubartion, Dr gan also informed about changes in pts status Tried to call pts but phone number does not accept calls as this time. Patient was subsequently intubated and also seen by Dr. Merida at bedside. VS,Fishbone, I+O VS, Fishbone, I+O Laboratory Tests 02/06/20 04:11 02/06/20 16:44 Vital Signs Date Time Temp Pulse Resp B/P (MAP) Pulse Ox O2 Delivery O2 Flow Rate FiO2 02/06/20 19:35 99.1 153 93 106/72 (83) 94 HVNI-Vapotherm 35.0 100 I&O- Last 24 Hours up to 6 AM 02/06/20 05:59 Intake Total 1010 ml Output Total 1150 ml Balance -140 ml DIONICIO PRESCOTT MD February 06, 2020 20:17
[2020-02-06] MEDS ORDERED: PROPOFOL 1,000 MG/100 ML VIAL As Ordered ONE (20:22)
[2020-02-06] MEDS ORDERED: NOREPINEPHRINE BITARTRATE 8 MG in D5W 492 ML IV SCH (20:30)
[2020-02-06 20:46] LABS: TROPONIN I < 0.02 NG/ML (< 0.10)
[2020-02-06] MEDS: CHLORHEXIDINE GLUCONATE 0.12 % 15ML UDC (PERIDEX ORAL RINSE) MT SCH (21:00)
--- NOTE | 2020-02-06 21:13 | CCN ---
DATE: 02/06/2020 Patient was seen and examined this morning during bedside rounds. Overnight, the patient was afebrile, although she did have a maximum temperature (T max) of 100.1. She did require some increase in her oxygen supplementation and overnight as well going up to 25 liters a minute on the Vapotherm and continued on 80% FiO2. She otherwise reports that she does feel improved as her fever curve has also improved. She does have improvement in her abdominal pain as well, although she reports a lack of appetite. She continues to have some shortness of breath, particularly with exertion and she has not been out of bed. PHYSICAL EXAM: Maximum temperature (T max) 100.1, current temperature (T current) 97.6, pulse 87, respirations 28, blood pressure 93/56, oxygen saturation (O2 sat) 92% on Vapotherm at 25 liters a minute and 80% FiO2. Input 1.1 liters, output 1.1 liters. General: The patient is a pleasant female who is lying in bed, does not appear in acute distress. She is able to speak in full sentences and does not appear to be using any accessory muscles for respiration. HEENT: Normocephalic, atraumatic. Moist mucous membranes. The patient has a small mouth opening. Neck is supple. Trachea is midline. Unable to palpate any cervical adenopathy. Cardiovascular: Regular rate and rhythm. Normal S1, S2. Unable appreciate murmurs. Pulmonary: There are coarse breath sounds bilaterally and scattered crackles but no significant wheezing or rhonchi. Abdomen: Soft. The patient has some tenderness in the epigastric region. There is no abdominal distension. Lower extremities: There is no significant lower extremity edema noted bilaterally. There are no new rashes or skin lesions noted. LABORATORY DATA: WBC 5.3, hemoglobin 9.6, platelets are 31. Chemistry: Sodium is 139, potassium 4.1, chloride is 108, bicarbonate is 21, BUN 5.0, creatinine increased to 1.12, glucose is 157, total bilirubin 2.2, direct bilirubin 1.4, AST and ALT increased slightly to 327 and 259, alkaline phosphatase is 698. LDH increased to 2633, ferritin is 2304, albumin is 1.8. Pathology: Sputum cytology was negative for malignancy and no pneumocystis identified on GMS stain. Specimen consisted of scattered squamous cells. Pathology peripheral smear shoed pancytopenia with normochromic, normocytic anemia and mild poikilocytosis. There were rare atypical lymphocytes noted. ASSESSMENT/PLAN: Ms. Lujan is a 69-year-old female with no significant medical history who presented with complaints of worsening fevers and chills for the past month as well as with myalgias. The patient was initially admitted and treated for a viral pneumonia versus atypical pneumonia with ceftriaxone and azithromycin. She had persistent fevers, however, and increasing inflammatory markers and antibiotics were broadened to cefepime and vancomycin. Despite this, the patient continued to have daily fevers and worsening of her hypoxemic respiratory failure with imaging findings of worsening bilateral ground-glass opacities mostly in the upper lobe as well as new small bilateral pleural effusions. Acute hypoxemic respiratory failure, thought to be secondary to a component of pulmonary edema versus a noncardiogenic pulmonary edema or from infection. The patient was initially given Lasix with no significant improvement in her chest x-ray findings or in her oxygenation. Her BNP was also only mildly elevated. There was suspicion that this may be due to an atypical infectious etiology, such as a fungal pneumonia or an atypical mycobacterial disease. PCP was suspected, although she does not have a history of known immunodeficiency, her IgG level was mildly reduced. - Given concern for PCP pneumonia. The patient was started on empiric Bactrim with monitoring of her renal function, electrolytes. As her sputum cytology had come back negative for PCP, will discontinue Bactrim particularly with the worsening creatinine and BUN. - Atypical mycobacterial disease was also suspected. Her initial sputum AFB smear was negative. There was also some concern for tuberculosis; however, her PPD was negative. Her QuantiFERON is still pending. Cont airborne pending three negative AFBs - The patient was suspected to have a possible viral etiology as well given her persistent fevers as well as with borderline hemophagocytotic lymphohistiocytosis. The EBV and CMV is still pending, although this is thought to be somewhat less likely to be associated with pneumonia. She may have a component of acute respiratory distress syndrome (ARDS) from a viral etiology. - Other fungal pneumonia such as Histoplasma, Cryptococcus, Blastomycosis, and Coccidiomycosis is possible, the results of which are still pending. She is continued on empiric voriconazole. Her voriconazole 200 mg twice a day was decreased to 200 mg daily given her increased liver function tests (LFTs). Will continue to monitor and adjust her dose appropriately. - Given concern for her elevated inflammatory markers with possible early or borderline hemophagocytic lymphohistiocytosis (HLH), she was started on steroids. The patient is on dexamethasone 8 mg every 8 hours, and it has appeared to improve in terms of her fever as well as her leukopenia. She is still thrombocytopenic, however, and her inflammatory markers were still elevated. Will repeat LDH and ferritin tomorrow. Other possible connective tissue disease causes of interstitial lung disease testing was ordered as well as possible vasculitis including ANCAs and a hypersensitivity panel, as well as scleroderma and polymyositis antibodies. - Appreciate hematology consult. As per hematology, there is no indication for a bone marrow biopsy at this time. Will continue to follow up with her cytopenias and transfuse as needed - Appreciate infectious disease (ID) consult and further recommendations. - Given the patient's worsening BUN and creatinine, will give her albumin as she does have hypoalbuminemia, and she may need some intravascular repletion. I suspect she does have a component of some third spacing . Will continue to monitor her renal function and renally dose medications. - I will continue the patient on Vapotherm and will titrate to maintain an O2 sat above 90%. She does likely have a component of atelectasis, and she has not been out of bed, nor very compliant with her incentive spirometer. Will get physical therapy (PT), occupational therapy (OT) to encourage the patient to be out of bed to chair and ambulation, as well as continuing to encourage use of her incentive spirometer to help with oxygenation. Deep vein thrombosis (DVT) prophylaxis. Thromboembolism deterrents (TEDs) and sequential compression devices (SCDs). Given her inflammatory state, will check a lower extremity duplex to make sure the patient does not have any acute DVT. Gastrointestinal (GI) prophylaxis. Will increase the patient to pantoprazole twice daily as she is also on steroids now and may have a component of gastritis her persistent epigastric pain and also due to risk for GIB given thrombocytopenia. CODE STATUS: FULL CODE. Total critical care time spent not including any procedures: Approximately 35 minutes. MTDD
[2020-02-06 21:52] LABS: ABG BASE EXCESS -11.8 (-2.0-2.0); ABG HCO3 12.8 MEQ/L (22.0-26.0); ABG PARTIAL PRESSURE CO2 25.5 mmHg (35.0-45.0); ABG PARTIAL PRESSURE O2 190.1 mmHg (75.0-100.0); ABG STANDARD HCO3 15.1 MEQ/L (22.0-26.0); ABG TOTAL CO2 13.6 MEQ/L (23.0-31.0)
[2020-02-06] MEDS ORDERED: NS 1,000 ML IV ONE (22:00)
[2020-02-06] MEDS: PANTOPRAZOLE 40MG VIAL (C9113 PER 1) IV SCH (22:00)
--- NOTE | 2020-02-06 22:05 | ECGEPIP ---
[facility] Test Date: 2020-02-06 Pat Name: CHINYERE CLARK Department: Room: [place] [address] Gender: Female [employer]: DEV : 1950 Requested By: DIONICIO PRESCOTT Order Number: [id number] Reading MD: Donald Rm Measurements Intervals [place] Rate: 140 P: NH: 0 QRS: -13 QRSD: 89 T: 14 QT: 292 QTc: 447 Interpretive Statements SUPRAVENTRICULAR TACHYCARDIA rSr' in V1 & V2 (RV conduction delay) Mild nonspecific ST DEPRESSION No prior ECG available for comparison at the time of interpretation. Electronically Signed on 02-06-2020 22:05:14 EDT by Donald Rm
[2020-02-06] MEDS: propofoL 1,000 MG in IV 1 EA IV SCH (22:10)
[2020-02-06] MEDS: fentaNYL 100 MCG/2 ML INJECTION (J3010) IV PRN ×3 (22:11→23:50)
--- NOTE | 2020-02-06 22:47 | REPVR ---
PROCEDURE INFORMATION: Exam: US Duplex Lower Extremity Veins, Bilateral Exam date and time: 02/06/2020 10:31 PM Age: 69 years old Clinical indication: Abnormal findings; Abnormal lab test; Elevated d-dimer; Additional info: Elevated d dimer TECHNIQUE: Imaging protocol: Real-time duplex ultrasound of the extremities with 2-D saez scale, color Doppler flow and spectral waveform analysis with image documentation. Complete exam focused on the bilateral lower extremity veins. COMPARISON: No relevant prior studies available. FINDINGS: Right deep veins: Unremarkable. The common femoral, femoral and popliteal veins are patent without thrombus. Normal Doppler waveforms. Normal compressibility and/or augmentation response. Right superficial veins: Saphenofemoral junction is patent without thrombus. Left deep veins: Unremarkable. The common femoral, femoral and popliteal veins are patent without thrombus. Normal Doppler waveforms. Normal compressibility and/or augmentation response. Left superficial veins: Saphenofemoral junction is patent without thrombus. Soft tissues: Unremarkable. IMPRESSION: No sonographic evidence of deep vein thrombosis. Electronically signed by: Reagan Burks On 02/06/2020 22:47:27 PM
[2020-02-06] MEDS ORDERED: propofoL 200 MG/20 ML VIAL ONE (22:53)
[2020-02-06] MEDS ORDERED: SUCCINYLCHOLINE 100 MG/5 ML SYRINGE (J0330) ONE (22:53)
[2020-02-06] MEDS ORDERED: LIDOCAINE 2% INJ 100 MG/5 ML SYRINGE ONE (22:53)
[2020-02-06] MEDS: CISATRACURIUM 200 MG in NS 480 ML IV SCH (22:54)
[2020-02-06] MEDS ORDERED: SUCCINYLCHOLINE INJ 200 MG/10 ML VIAL (J0330) IV STA (22:59)
[2020-02-06] MEDS ORDERED: LIDOCAINE 2% INJ 100 MG/5 ML SYRINGE IV STA (22:59)
[2020-02-06] MEDS ORDERED: propofoL 200 MG/20 ML VIAL IV ONE (23:00)
[2020-02-06] MEDS: NOREPINEPHRINE BITARTRATE 16 MG in D5W 484 ML IV SCH (23:42)
[2020-02-07] VITALS (79 sets, daily range): BP systolic 88–160; BP diastolic 48–85
[2020-02-07] MEDS ORDERED: NS 1,000 ML IV SCH
[2020-02-07] MEDS: MIDAZOLAM INJ 2MG/2ML VIAL (J2250 PER 1MG) IV PRN (00:26)
--- NOTE | 2020-02-07 00:56 | REP ---
Clinical: Central line placement. Comparison: 02/06/2020 and 08:43 p.m. Findings: Endotracheal tube 4 cm above the kendall. Right IJ line with tip in the SVC. Nasogastric tube courses below left hemidiaphragm. The mediastinum and cardiac silhouette are normal. Perihilar and diffuse, primarily upper lobe opacities are again noted but appear improved. No effusion. No pneumothorax. Skeletal structures are intact. Impression: 1. Lines and tubes in satisfactory position. 2. Improved aeration. Electronically Signed by Dickson Green MD 02/07/2020 12:47 A
--- NOTE | 2020-02-07 01:01 | REP ---
Clinical: Status post intubation. Comparison: 02/06/1928 at 07:27 p.m. Findings: Endotracheal tube 4 cm above the kendall. Nasogastric tube courses below left hemidiaphragm. Mediastinum and cardiac silhouette are within normal limits. Perihilar and upper lobe infiltrates (left greater than right) compatible with multifocal pneumonia, and appears slightly improved compared to prior examination. No effusion. No pneumothorax. Skeletal structures intact. Impression: 1. Tubes in satisfactory position. 2. Continued bilateral upper lobe infiltrates mildly improved. Electronically Signed by Dickson Green MD 02/07/2020 12:52 A
[2020-02-07] MEDS: fentaNYL CITRATE 1,000 MCG in NS 80 ML IV SCH (01:04)
--- NOTE | 2020-02-07 01:40 | REP ---
PORTABLE CHEST X-RAY, SINGLE VIEW: HISTORY: Chest pain and shortness of breath. COMPARISON CHEST X-RAY: 02/03/2020 FINDINGS: Oxygen delivery tubing and monitoring electrodes are seen. There are heavy bilateral perihilar alveolar infiltrates with air bronchograms. These are larger and more opaque than on the 02/03/2020 prior study, consistent with progressive pneumonia. There is evidence of small bilateral pleural effusions similar in size to the 02/03/2020 study. No new infiltrate is seen. Heart size is unchanged. IMPRESSION: Progressive bilateral upper lobe perihilar pneumonia. Small bilateral pleural effusions again noted. Electronically Signed by Randolph Stone MD 02/07/2020 08:25 A
[2020-02-07] MEDS: dexameTHASONE 20MG/5ML VIAL (J1100 PER 1MG) IV SCH (02:57)
[2020-02-07 04:35] LABS: HEMATOCRIT 27.6 % (36.0-47.0); HEMOGLOBIN 8.8 g/dl (12.0-15.5); MEAN CORPUSCULAR HEMOGLOBIN 29.6 pg (27.0-33.0); MEAN CORPUSCULAR HGB CONC 31.9 g/dl (32.0-36.5); MEAN CORPUSCULAR VOLUME 92.9 fl (80.0-96.0); RED BLOOD COUNT 2.97 10^6/uL (4.00-5.40); WHITE BLOOD COUNT 20.5 10^3/uL (4.0-10.0)
[2020-02-07 04:40] LABS: PLATELET COUNT, AUTOMATED 58 10^3/uL (150-450)
[2020-02-07 04:46] LABS: FIBRINOGEN 528 MG/DL (221-452)
[2020-02-07 05:05] LABS: ERYTHROCYTE SEDIMENTATION RATE 65 mm/hr (0-30)
[2020-02-07 05:07] LABS: ALBUMIN 1.9 GM/DL (3.2-5.2); BILIRUBIN,DIRECT 1.8 MG/DL (0.0-0.2); BILIRUBIN,TOTAL 2.4 MG/DL (0.2-1.0); C REACTIVE PROTEIN QUANTITATIV 15.5 MG/DL (0.00-0.30); CALCIUM LEVEL 7.6 MG/DL (8.8-10.2); CREATININE FOR GFR 2.04 MG/DL (0.55-1.30); GLOMERULAR FILTRATION RATE 25.8 (>45); POTASSIUM SERUM 5.8 MEQ/L (3.5-5.1); TOTAL PROTEIN 4.5 GM/DL (6.4-8.2); TROPONIN I 0.23 NG/ML (< 0.10)
[2020-02-07 05:19] LABS: D-DIMER QUANT > 4000 ng/ml (<500)
[2020-02-07 05:22] LABS: CK-MB VALUE MASS < 1.0 NG/ML (<3.6); CPK CREATINE PHOSPHOKINASE 43 U/L (26-192); MB/CK RELATIVE INDEX 2.33 (< OR =4)
[2020-02-07] MEDS ORDERED: DEXTROSE 50% 50 ML SYRINGE IV STA (05:33)
[2020-02-07] MEDS ORDERED: CALCIUM GLUCONATE 1,000 MG in D5W MINI-BAG PLUS 100 ML IV ONE ×4 (05:45→23:00)
[2020-02-07] MEDS ORDERED: HumuLIN R (REGULAR) INSULIN (NovoLIN R) **100U/ML** PER UNIT IV ONE (05:45)
[2020-02-07 06:12] LABS: ABG BASE EXCESS -18.9 (-2.0-2.0); ABG HCO3 10.8 MEQ/L (22.0-26.0); ABG O2 SATURATION 98.1 % (95.0-99.0); ABG PARTIAL PRESSURE CO2 41.5 mmHg (35.0-45.0); ABG PARTIAL PRESSURE O2 158.9 mmHg (75.0-100.0); ABG STANDARD HCO3 10.1 MEQ/L (22.0-26.0); ABG TOTAL CO2 12.1 MEQ/L (23.0-31.0)
[2020-02-07 06:15] LABS: ABG pH (ARTERIAL) 7.034 UNITS (7.350-7.450)
[2020-02-07] MEDS: propofoL 1,000 MG in IV 1 EA IV SCH ×2 (06:21→20:53)
[2020-02-07] MEDS ORDERED: GASTROGRAFIN SOLUTION 30ML PO SCH (06:30)
[2020-02-07 06:48] LABS: ATYPICAL LYMPH 3 % (0-5); LYMPHOCYTES 16 % (16-44); METAMYELOCYTES 2 % (0-0); MONOCYTES 11 % (0-5); MYELOCYTES 1 % (0-0); NEUTROPHILS 66 % (28-66); PLATELET ESTIMATE MARKED DECREASE (NORMAL)
[2020-02-07 06:49] LABS: SMUDGE CELLS 2+
[2020-02-07 06:50] LABS: POLYCHROMASIA 1+
[2020-02-07 06:55] LABS: ANISOCYTOSIS 1+
--- NOTE | 2020-02-07 07:05 | REP ---
Clinical: Status post intubation. Comparison: 02/06/2020. Findings: Endotracheal tube, nasogastric tube, and right IJ line are in stable satisfactory position. The mediastinum and cardiac silhouette are normal. Diffuse patchy bilateral alveolar and interstitial infiltrates have increased from prior examination throughout the bilateral lung rojo and now appears deformed right lower lobe consolidation. No obvious effusion. No pneumothorax. Skeletal structures stable. Impression: Diffuse bilateral alveolar and interstitial infiltrates increased from prior examination including forming consolidation to the right lower lobe. Electronically Signed by Dickson Green MD 02/07/2020 06:57 A
[2020-02-07] MEDS ORDERED: D5W IV SCH (08:00)
[2020-02-07] MEDS ORDERED: SODIUM BICARBONATE IV SCH (08:00)
[2020-02-07] MEDS ORDERED: MEROPENEM INJ 500 MG in IV 1 EA IV SCH (08:00)
[2020-02-07] MEDS: VORICONAZOLE 200MG TABLET (VFEND) PO SCH (08:04)
[2020-02-07 08:52] LABS: APPEARANCE, URINE CLOUDY (CLEAR); BACTERIA, URINE AUTO 1+ (NEGATIVE); BILIRUBIN, URINE AUTO NEGATIVE (NEGATIVE); BLOOD, URINE BLOOD 2+ (NEGATIVE); COLOR, URINE AMBER (YELLOW); GLUCOSE, URINE (UA) AUTO 1+ mg/dL (NEGATIVE); KETONE, URINE AUTO NEGATIVE (NEGATIVE); LEUKOCYTE ESTERASE, URINE AUTO NEGATIVE (NEGATIVE); NITRITE, URINE AUTO NEGATIVE (NEGATIVE); PROTEIN, URINE AUTO 2+ mg/dL (NEGATIVE); RBC, URINE AUTO 11 /HPF (0-3); SPECIFIC GRAVITY URINE AUTO 1.015 (1.002-1.035); SQUAMOUS EPITHELIAL CELL UR AU 0 /HPF (0-6); WBC, URINE AUTO 12 /HPF (0-3)
--- NOTE | 2020-02-07 08:54 | RO ---
DATE OF PROCEDURE: 02/06/2020 PROCEDURE: Central line. INDICATION: Vasopressor administration. PREPROCEDURE DIAGNOSIS: Shock. POSTPROCEDURE DIAGNOSIS: Shock. ATTENDING PHYSICIAN: Dr. Merida CONSENT: Due to the emergent nature of the procedure, consent was implied. PROCEDURE SUMMARY: A central line insertion practice form was completed by independent observer. Full sterile technique was maintained throughout the procedure including surgical cap, mask, protective eye wear, full gown, and sterile gloves. A time out was performed. The patient was placed into Trendelenburg position. The right neck region was prepped using chlorhexidine scrub and draped in sterile fashion using a fenestrated drape and a sterile probe cover was employed. The right internal jugular vein was identified using ultrasound. Anesthesia was achieved over the vein using 1% lidocaine. Using real time out of plane guidance, introducer needle was inserted into the internal jugular vein under direct ultrasound visualization. Venous blood was withdrawn. The syringe was removed. A guidewire was advanced into the introducer needle. The introducer needle was removed over the guidewire and a small incision was made at the skin surface with the scalpel and a dilator was exchanged over the guidewire. After appropriate dilation was obtained, the dilator was exchanged over the wire for a triple-lumen central venous catheter. The wire was removed and the catheter was sutured in place at 18 cm. A sterile chlorhexidine impregnated dressing was placed over the catheter at the insertion site. The patient tolerated the procedure without any hemodynamic compromise. At time of procedure completion, all ports were aspirated and flushed properly. A postprocedure chest x-ray is pending. Estimated blood loss less than 2 mL. MTDD
[2020-02-07] MEDS: PANTOPRAZOLE 40MG VIAL (C9113 PER 1) IV SCH ×2 (09:05→20:06)
[2020-02-07] MEDS: HYDROCORTISONE 100 MG/2 ML VIAL (J1720 PER 1) IV SCH ×2 (09:05→15:20)
[2020-02-07] MEDS: MEROPENEM INJ 1 GM in IV 1 EA IV SCH ×2 (09:06→21:29)
[2020-02-07] MEDS: FLUTICASONE PROP 0.05% NASAL SPRAY 16 GM (FLONASE) NARES SCH ×2 (09:06→20:09)
[2020-02-07] MEDS: DOXYCYCLINE HYCLATE 100 MG in D5W MINI-BAG PLUS 100 ML IV SCH ×2 (09:06→20:07)
[2020-02-07] MEDS: CHLORHEXIDINE GLUCONATE 0.12 % 15ML UDC (PERIDEX ORAL RINSE) MT SCH ×2 (09:06→20:06)
[2020-02-07 09:19] LABS: CREATININE,RANDOM URINE 72.7 MG/DL
[2020-02-07 09:48] LABS: INR 2.38; PROTHROMBIN TIME 25.8 SECONDS (11.8-14.0)
[2020-02-07 09:49] LABS: PARTIAL THROMBOPLASTIN TIME 37.6 SECONDS (25.0-38.4)
[2020-02-07 10:02] LABS: CALCIUM LEVEL 7.7 MG/DL (8.8-10.2); CREATININE FOR GFR 2.47 MG/DL (0.55-1.30); GLOMERULAR FILTRATION RATE 20.7 (>45); POTASSIUM SERUM 6.3 MEQ/L (3.5-5.1); TROPONIN I 0.34 NG/ML (< 0.10)
[2020-02-07 10:07] LABS: ABG BASE EXCESS -17.5 (-2.0-2.0); ABG HCO3 10.6 MEQ/L (22.0-26.0); ABG O2 SATURATION 98.1 % (95.0-99.0); ABG PARTIAL PRESSURE CO2 33.5 mmHg (35.0-45.0); ABG PARTIAL PRESSURE O2 144.6 mmHg (75.0-100.0); ABG TOTAL CO2 11.6 MEQ/L (23.0-31.0)
[2020-02-07 10:10] LABS: ABG pH (ARTERIAL) 7.117 UNITS (7.350-7.450)
[2020-02-07] MEDS ORDERED: SODIUM BICARBONATE 8.4% INJ 50 ML SYRINGE IV STA (10:31)
[2020-02-07 11:02] LABS: ACETONE/KETONE 2.77 MG/DL (<2.81)
[2020-02-07] MEDS ORDERED: SODIUM CHLORIDE 0.9% INJ 10 ML SYR IV PRN (11:45)
[2020-02-07] MEDS: ATOVAQUONE SUSP 750MG/5ML 210 ML BTL PO SCH ×2 (14:08→20:07)
[2020-02-07 14:41] LABS: APPEARANCE TURBID (CLEAR); COLOR RED (COLORLESS); SOURCE RIGHT UPPER LOBE
[2020-02-07 15:09] LABS: ABG BASE EXCESS -12.4 (-2.0-2.0); ABG HCO3 13.3 MEQ/L (22.0-26.0); ABG O2 SATURATION 95.4 % (95.0-99.0); ABG PARTIAL PRESSURE O2 94.8 mmHg (75.0-100.0); ABG STANDARD HCO3 14.5 MEQ/L (22.0-26.0); ABG TOTAL CO2 14.3 MEQ/L (23.0-31.0); ABG pH (ARTERIAL) 7.266 UNITS (7.350-7.450)
[2020-02-07] MEDS: VASOPRESSIN INJ 20 UNITS in NS 499 ML IV SCH ×2 (15:23→22:59)
[2020-02-07 15:52] LABS: SOURCE RIGHT UPPER LOBE
[2020-02-07 15:53] LABS: APPEARANCE CLOUDY (CLEAR); COLOR RED (COLORLESS)
[2020-02-07] MEDS: NOREPINEPHRINE BITARTRATE 16 MG in D5W 484 ML IV SCH (15:56)
[2020-02-07 16:07] LABS: CYTOMEGALOVIRUS IgM ANTIBODY <30.0 AU/mL (0.0-29.9); EBV VIRAL CAPSID AG IgG 86.4 U/mL (0.0-17.9); EBV VIRAL CAPSID AG IgM <36.0 U/mL (0.0-35.9)
--- NOTE | 2020-02-07 16:12 | ECHO ---
DATE OF STUDY: 02/07/2020 REFERRING PHYSICIAN: Dr. Karen Merida INDICATION: Shock, hypoxia, pneumonia. HEIGHT: 120 cm WEIGHT: 59.5 kg 2-D MEASUREMENTS: Aortic root: 2.9 cm Left atrium: 2.3 cm Ventricular septum: 1.23 cm Posterior wall: 1.17 cm LVOT: 2.0 cm Inferior vena cava: 1.9 cm with marked reduction of respiratory variation. DOPPLER MEASUREMENTS: No aortic stenosis. No aortic regurgitation. Aortic valve velocity: 154 cm/sec LVOT velocity: 114 cm/sec LVOT VTI: 18.4 cm No mitral regurgitation. No mitral stenosis. Mitral E velocity: 76.5 cm/sec Mitral A velocity: 38.5 cm/sec Mitral deceleration time: 201 ms Mild tricuspid regurgitation Estimated right ventricular systolic pressure at least 54 mmHg assuming a right atrial pressure of at least 20 mmHg No pulmonic regurgitation but technically difficult. MITRAL ANNULAR TISSUE DOPPLER E prime septal: 4.8 cm/sec query DESCRIPTION: The rhythm was sinus tachycardia. This was moderately technically difficult echocardiogram. The study was performed with the patient supine. This was a 2-D, M-mode, color flow Doppler and pulsed wave Doppler examination and included mitral annular tissue Doppler. CONCLUSIONS: 1. Borderline concentric left ventricular hypertrophy. No regional wall motion abnormalities of the left ventricle. Hyperdynamic LV systolic function. Left ventricular ejection fraction (LVEF) at least 80%. Normal LV diastolic function. 2. Mild right ventricular hypertrophy. Right ventricular size appears to be near the upper limits of normal. No wall motion abnormalities of the right ventricle. Hyperdynamic right ventricular systolic function. 3. Suggestive of at least moderate elevation of estimated right ventricular systolic pressure (at least 54 mmHg). 4. Inferior vena cava near the upper limits of normal in size with marked reduction of respiratory variation. Suggestive of elevated central venous pressure of at least 20 mmHg. 5. Moderately technically difficulty echocardiogram. 6. No pericardial effusion. MTDD
--- NOTE | 2020-02-07 16:48 | IPNPDOC ---
Date Seen The patient was seen on 02/07/20. Progress Note SUBJECTIVE: The patient had worsening hypoxia yesterday evening. Lever Miller was called and patient was intubated shortly afterwards. This afternoon she is on pressors, underwent bronchoalveolar lavage, and now is on CVVH. OBJECTIVE PHYSICAL EXAMINATION: VITAL SIGNS: Please see below. GENERAL APPEARANCE: Laying in bed, appears stated age, no acute distress, calm, cooperative HEENT: EOMI, PERRLA, neck is supple with no thyromegaly or lymphadenopathy RESPIRATORY: Lungs are clear to auscultation bilaterally with no adventitious breath sounds appreciated CARDIOVASCULAR: no JVD, RRR, no murmurs/rubs/gallops, normal S1 and S2 ABDOMEN: +BS, soft, slightly protuberant, no masses/organomegaly EXTREMITIES: no clubbing, cyanosis or edema noted NEUROLOGICAL: unable to perform PSYCHIATRIC: unable to perform Skin: No rashes or ulcers appreciated, warm and well-perfused LN: No significant cervical or inguinal lymphadenopathy LABORATORY DATA, IMAGING STUDIES, MICROBIOLOGY: Please see below. DVT prophylaxis ordered?: TEDS/SCDs ASSESSMENT AND PLAN: This is a 69-year-old female with history of fevers and chills progressively worsening over the past month, and episodic subjective shortness of breath, found to have elevated inflammatory markers, concerning for viral versus bacterial pneumonia. She is COVID-19 negative. PROBLEMS: 1. Fever of unknown origin: concerning for acute viral PNA vs atypical PNA vs reactivated TB vs malignancy -Most recent AB.266/30/94 -Ground glass opacities found on CTA and chest x-ray. Also concerning for fluid overload Current empiric antibiotic/antifungal treatment: -Atovaquone, Doxycycline, Meropenem, Voriconazole Empiric steroids: -Dexamethasone, Hydrocortisone -Pending BAL results and AFB -Previous Sputum AFB negative for growth x2 -Blood cultures no growth to date -Inflammatory markers (Ferritin, LDH, CRP) increasing. Will continue to trend. Concerning for HLH -Nephrology consulted for acute renal failure and hyperkalemia. On CVVH. s/p bicarb/calcium gluconate -Infectious disease consulted. Appreciate recommendations 2. Possible PNA -Empiric treatment as listed above -Pro calcitonin found to be 0.17, therefore less likely bacterial infection -Respiratory panel found to be negative -Mycoplasma pneumonia IgG found to be elevated. May suggest history of infection, but not necessarily current infection -Quant Gold test, PPD, Legionella, EBV, CMV, Scleroderma ordered to rule out atypical pathology -Continue Tylenol, ibuprofen for fevers -MDI resp treatment as needed 3. Tranaminitis: -Liver function worsening. Will continue to monitor 4. Thrombocytopenia: likely 2/2 infection vs antibiotics -Medical Oncology consulted. Appreciate recommendations DISPOSITION: pending clinical improvement. Attending attestation: I evaluated and examined the patient in person; I discussed the care with Resident in detail and agree with the plan above. VS, I&O, 24H, Fishbone Vital Signs/I&O Vital Signs Date Time Temp Pulse Resp B/P (MAP) Pulse Ox O2 Delivery O2 Flow Rate FiO2 02/07/20 14:40 97.5 121 30 94/60 98 Ventilator 40 02/06/20 20:00 35.0 I&O- Last 24 Hours up to 6 AM 02/07/20 06:00 Intake Total 1300.0 ml Output Total 925 ml Balance 375.0 ml Laboratory Data 24H LABS Laboratory Tests 2 02/06/20 16:44: Anion Gap 11, Glomerular Filtration Rate 40.5L, Calcium Level 8.6L 02/06/20 19:29: Blood Gas Bicarbonate Standard 20.0L, Arterial Blood pH 7.504H, Arterial Blood Partial Pressure CO2 21.0L, Arterial Blood Partial Pressure O2 103.6H, Arterial Blood Total CO2 16.8L, Arterial Blood HCO3 16.2L, Arterial Blood Base Excess - 5.4L, Arterial Blood Oxygen Saturation 97.7 02/06/20 19:50: Total Creatine Kinase 43, Creatine Kinase MB < 1.0, Creatine Kinase MB Relative Index 2.33, Troponin I < 0.02 02/06/20 21:30: Blood Gas Bicarbonate Standard 15.1L, Arterial Blood pH 7.320L, Arterial Blood Partial Pressure CO2 25.5L, Arterial Blood Partial Pressure O2 190.1H, Arterial Blood Total CO2 13.6L, Arterial Blood HCO3 12.8L, Arterial Blood Base Excess - 11.8L, Arterial Blood Oxygen Saturation 99.0 02/07/20 01:20: Troponin I 0.11#H 02/07/20 04:00: Troponin I 0.23#H, Immature Granulocyte % (Auto) , Neutrophils (%) (Auto) , Nucleated Red Blood Cells % (auto) 8.2H, Neutrophils 66, Band Neutrophils 1, Lymphocytes (Manual) 16, Monocytes (Manual) 11H, Metamyelocytes 2H, Myelocytes 1H, Atypical Lymphocytes 3, Polychromasia 1+, Anisocytosis 1+, Smudge Cells 2+, Platelet Estimate MARKED DECREASE, Erythrocyte Sedimentation Rate 65H, Fibrinogen 528H, D-Dimer, Quantitative > 4000H, Anion Gap 12, Glomerular Filtration Rate 25.8L, Calcium Level 7.6L, Total Bilirubin 2.4H, Direct Bilirubin 1.8H, Aspartate Amino Transf (AST/SGOT) 484H, Alanine Aminotransferase (ALT/SGPT) 258H, Alkaline Phosphatase 660H, Lactate Dehydrogenase 7634H, C- Reactive Protein, Quantitative 15.50H, Total Protein 4.5L, Albumin 1.9L, Albumin/Globulin Ratio 0.7L 02/07/20 05:44: Blood Gas Bicarbonate Standard 10.1L, Arterial Blood pH 7.034*L, Arterial Blood Partial Pressure CO2 41.5, Arterial Blood Partial Pressure O2 158.9H, Arterial Blood Total CO2 12.1L, Arterial Blood HCO3 10.8L, Arterial Blood Base Excess - 18.9L, Arterial Blood Oxygen Saturation 98.1 02/07/20 06:13: Lactic Acid Level 6.8*H, Ammonia 115H 02/07/20 08:36: Urine Color STEVIE, Urine Appearance CLOUDYH, Urine pH 5.0, Urine Specific [place] 1.015, Urine Protein 2+H, Urine Glucose (Auto)(UA) 1+H, Urine Ketones (Auto) NEGATIVE, Urine Blood 2+H, Urine Nitrite NEGATIVE, Urine Bilirubin NEGATIVE, Urine Urobilinogen 4.0H, Urine Leukocyte Esterase (Auto) NEGATIVE, Urine WBC (Auto) 12H, Urine RBC (Auto) 11H, Urine Hyaline Casts (Auto) 4, Urine Bacteria (Auto) 1+H, Urine Squamous Epithelial Cells 0, Urine Sperm (Auto) , Urine Random Creatinine 72.7, Urine Random Total Protein 235.8H 02/07/20 09:12: Prothrombin Time 25.8H, Prothromb Time International Ratio 2.38, Activated Partial Thromboplast Time 37.6, Ferritin 9899H, B-Hydroxybutyrate 2.77 02/07/20 09:22: Blood Gas Bicarbonate Standard 11.0L, Arterial Blood pH 7.117*L, Arterial Blood Partial Pressure CO2 33.5L, Arterial Blood Partial Pressure O2 144.6H, Arterial Blood Total CO2 11.6L, Arterial Blood HCO3 10.6L, Arterial Blood Base Excess - 17.5L, Arterial Blood Oxygen Saturation 98.1, Anion Gap 18H, Glomerular Filtration Rate 20.7L, Lactic Acid Level 8.4*H, Calcium Level 7.7L, Troponin I 0.34#H 02/07/20 13:44: Bronchial Specimen Source RIGHT UPPER LOBE, Bronchial Fluid WBC 191H, Bronchoalveolar Lavage Appearance TURBIDH, Bronchoalveolar Lavage Color REDH, Lactic Acid Followup at 4 Hours 10.0*H CBC/BMP Laboratory Tests 02/06/20 16:44 02/07/20 04:00 02/07/20 09:22 Microbiology Microbiology 02/07/20 Acid Fast Stain, Received Pending 02/07/20 Mycobacterial Culture, Received Pending 02/07/20 Fungal Smear, Received Pending 02/07/20 Fungal Culture, Received Pending 02/07/20 Viral Culture, Received Pending 02/07/20 Gram Stain, Received Pending 02/07/20 Bronchoalveolar Lavage Culture, Received Pending 02/07/20 Gram Stain, Received Pending 02/07/20 Bronchoalveolar Lavage Culture, Received Pending 02/07/20 Acid Fast Stain - Final, Resulted 02/07/20 Mycobacterial Culture, Resulted Pending 02/05/20 Fungal Smear, Received Pending 02/05/20 Fungal Culture, Received Pending 02/04/20 Malaria Smear ([facility]) - Final, Complete 02/03/20 Acid Fast Stain - Final, Resulted 02/03/20 Mycobacterial Culture, Resulted Pending 02/01/20 Gram Stain - Final, Complete 02/01/20 Sputum Culture - Final, Complete 01/30/20 Gram Stain - Final, Complete 01/30/20 Sputum Culture - Final, Complete 01/30/20 Respiratory Virus Panel (PCR) ([facility]) - Final, Complete 01/28/20 Blood Culture - Final, Complete NO GROWTH AFTER 5 DAYS 01/28/20 Blood Culture - Final, Complete NO GROWTH AFTER 5 DAYS 01/28/20 - Final, Complete GME ATTESTATION GME ATTESTATION My faculty preceptor for this patient encounter was physically present during the encounter and was fully available. All aspects of the patient interview, examination, medical decision making process, and medical care plan development were reviewed and approved by the faculty preceptor. The faculty preceptor is a cerna and concurs with the plan as stated in the body of this note and will attest to such by his/her cosignature. MORGAN BEACH MD February 07, 2020 14:53 JIM JOYNER MD Feb 14, 2020 20:22
[2020-02-07 21:03] LABS: IONIZED CALCIUM 4.2 MG/DL (4.5-5.3)
[2020-02-07 21:08] LABS: HEMATOCRIT 21.9 % (36.0-47.0); HEMOGLOBIN 7.4 g/dl (12.0-15.5); MEAN CORPUSCULAR HEMOGLOBIN 30.6 pg (27.0-33.0); MEAN CORPUSCULAR HGB CONC 33.8 g/dl (32.0-36.5); MEAN CORPUSCULAR VOLUME 90.5 fl (80.0-96.0); RED BLOOD COUNT 2.42 10^6/uL (4.00-5.40); WHITE BLOOD COUNT 8.2 10^3/uL (4.0-10.0)
[2020-02-07 21:09] LABS: PLATELET COUNT, AUTOMATED 35 10^3/uL (150-450)
[2020-02-07] MEDS: CISATRACURIUM 200 MG in NS 480 ML IV SCH (21:30)
[2020-02-07 21:39] LABS: CALCIUM LEVEL 7.7 MG/DL (8.8-10.2); CREATININE FOR GFR 2.04 MG/DL (0.55-1.30); GLOMERULAR FILTRATION RATE 25.8 (>45); MAGNESIUM LEVEL 2.7 MG/DL (1.8-2.4); PHOSPHORUS LEVEL 6.5 MG/DL (2.5-4.9); POTASSIUM SERUM 4.2 MEQ/L (3.5-5.1)
--- NOTE | 2020-02-07 22:53 | CCN ---
DATE: 02/07/2020 Yesterday evening the patient was noted to have sudden sinus tachycardia with heart rate in the 140s, as well as increasing shortness of breath and tachypnea. The patient was requiring increasing amounts of oxygen supplementation via Vapotherm. She was on max 40L/min and 100% FiO2 and continued to have low oxygen saturations. She also had dropped her blood pressure with a systolic in the 80s. The patient was started on peripheral Levophed and anesthesia was called for intubation. Anesthesia's first attempt with intubation was unsuccessful. The patient had vomiting due to esophageal intubation. She was able to be intubated with the GlideScope however and placed on mechanical ventilation. The patient continued to require Levophed for blood pressure support overnight and is on currently 15 mcg a minute this morning. She was able to be weaned down on her FiO2 overnight, however, she has had worsening metabolic acidosis with increasing lactic acidosis and worsening renal failure. She has also had decreased urine output overnight with uligoric renal failure. The patient was able to be weaned down on FiO2 on the mechanical ventilator; however, she did require addition of neuromuscular blockade, as she was dyssynchronous on the ventilator. PHYSICAL EXAMINATION: Vitals: Temperature 98.2, pulse 109, respirations 24, blood pressure 111/70, oxygen saturation 99% on the vent at 60% FiO2, in is 1.3 meters, out 750 mL. General: The patient is intubated and sedated. She is on neuromuscular anant and is unresponsive to painful stimuli. Her train of four is anywhere from 2 to 3 out of 4. HEENT: Normocephalic, atraumatic. Moist mucous membranes. The patient has an OG tube in place which has started draining some dark red output. Neck: Supple. Trachea is midline. Unable to palpate any cervical adenopathy. Cardiovascular: Tachycardiac, regular rate and rhythm. Normal S1-S2. I did not appreciate murmurs. Pulmonary: There are coarse ventilated breath sounds bilaterally. Lower extremities: There is no significant lower extremity edema noted bilaterally. LABORATORY DATA: WBC 20.5, hemoglobin 8.8, platelets are 58. Chemistry: Sodium is 137, potassium is 5.8, chloride is 109, bicarb is 16, BUN 78, creatinine 2.04, glucose is 193, lactic acid was 6.8, total bilirubin 2.4, direct bilirubin 1.8, AST, ALT trending up to 424 and 250, alkaline phosphatase 610, LDH trending up to 6634, troponin trending to 0.23, albumin is 1.9, ammonia level is 115. Chest x-ray shows ET tube in satisfactory position with a right IJ triple lumen in place with the tip in the SVC. There is an OG tube coursing below the diaphragm. There are diffuse patchy bilateral alveolar interstitial infiltrates that have increased and now appears to have more of a right lower lobe consolidation. ASSESSMENT/PLAN: Ms. Lujan is a 69-year-old female with no significant medical history, who presented with complaints of worsening fevers and chills for the past month, as well as myalgias. The patient was initially admitted and treated for a viral pneumonia versus atypical pneumonia with ceftriaxone and azithromycin. She had persistent fevers, however increasing inflammatory markers and her antibiotics were broadened to cefepime and vancomycin. Despite this, the patient continued to have daily fevers and worsening hypoxemic respiratory failure with imaging showed worsening bilateral ground-glass opacities mostly in the upper lobe, as well as new small bilateral pleural effusions. The patient was started on empiric treatment for potential fungal pneumonia, as well as more atypical organisms with doxycycline. She was also given steroids given the severe inflammatory response, as well as for potential inflammatory interstitial lung disease or vasculitis. The patient's fever had improved; however, she continued to have worsening hypoxemic respiratory failure and overnight decompensated and required intubation and mechanical ventilation. Neuro: The patient is currently intubated and sedated. - She is on propofol for sedation and fentanyl for analgesia as she is also requiring neuromuscular blockade with a Nimbex drip. - Will continue her with deep sedation and analgesia while paralyzed. Continue monitoring train of four with a goal of 2 to 3 out of 4 for improved vent synchrony - The patient does have elevated ammonia level and she does also have worsening renal failure, which would likely contributing to any metabolic cephalopathy. She also has a severe metabolic acidosis, as well, which would also contribute to a metabolic encephalopathy. Cardiac: The patient had the hypotension yesterday during her acute decompensation, She was started on Levophed peripherally initially and then had placement of a right IJ triple lumen catheter for vasopressor administration. She also had increased troponins likely due to demand ischemia, as well as a component of her worsening renal failure. - The patient had no lower extremity duplex done stat overnight and she has only been on TEDs and SCDs for DVT prophylaxis given her thrombocytopenia. There was concern for possible DVT given her acute decompensation overnight and possible pulmonary emboli (PE). She did have a stat echocardiogram done which showed hyperdynamic ejection fraction (EF) with LV hypertrophy. Right ventricle was hypertrophied also and did not appear to have any dilation. The IVC was dilated however suggestive of elevated central venous pressure (CVP) with moderate elevation in the RV systolic pressure, likely due to her lung disease and hypoxemic respiratory failure. - Will continue to trend troponin. - The patient has increasing lactic acidosis. She was given IV fluid boluses and continued on pressors with no improvement in her lactic acidosis. She has not required increasing amount of pressors and so suspect lactic acidosis is secondary to her worsening renal and liver failure. - Will continue to trend her lactic acid. Pulmonary: The patient has acute hypoxemic respiratory failure, status post intubation and on mechanical ventilation. There was some concern initially that the patient's ground-glass opacities with the upper lobe predominance and small pleural effusions may have been due to pulmonary edema. Her initial BMP was elevated and on repeat had actually improved and was normal. The patient does have coagulopathy and thrombocytopenia and so some of the ground-glass opacities may be from pulmonary hemorrhage. It was also thought to be due to possible atypical infectious process including fungal pneumonia or PCP. - The patient was initially started on Bactrim for empiric treatment of PCP pneumonia. Given her worsening renal function, it was discontinued yesterday and so will start her on atovaquone. The patient will have a bronchoscopy performed today at the bedside to evaluate for diffuse alveolar hemorrhage, as well as for repeating BAL cytology for GMS stain for PCP, as well as AFB and viral cultures and bacterial cultures - Will continue doxycycline for more atypical organisms. Will add meropenem given the worsening right lower lobe opacity and her vomiting during intubation yesterday to cover for aspiration pneumonia. - Will continue the patient on antifungal coverage. Will have to change her medications to one that is able to be given through the OG tube. Will followup the results of her fungal titers - The patient's QuantiFERON Gold was negative and her PPD was negative. Pending her repeat AFB; if it is negative, she will have had three negative AFBs and can likely discontinue isolation at that time. - Will follow up EBV and CMV - There is concern for possible vasculitis and a possible pulmonary renal syndrome, particularly given her worsening renal failure. Her ANCAs and OSCAR are still pending. Her scleroderma antibodies was negative. - Will continue with empiric treatments with steroids. Will change her from dexamethasone to hydrocortisone to cover for possible adrenal insufficiency as well. - Appreciate infectious disease (ID) consult and recommendation. The patient had additional CMV and EBV PCR added to the IgG, IgM which was pending. - cont mechanical ventilation with volume control and wean down FiO2 and PEEP as tolerated - cont daily CXR and ABGs while intubated Renal: The patient with worsening renal failure, as well as metabolic acidosis with a lactic acidosis and hyperkalemia. She was also oliguric overnight in terms of her urine output. The patient's renal failure may potentially be multifactorial due to possible medications. In particular, she has been getting ibuprofen during her hospitalization for her persistent fevers. She is also on antibiotics and other medications that can cause renal injury. There is also possibility that her worsening renal failure may be due to the potential etiology causing her pulmonary symptoms, such as a possible hepatopulmonary syndrome, although this is less likely to be associated with the high fevers. - Appreciate renal consult recommendations. The patient had a urinalysis (UA) and urine protein sent by nephrology. Will also add on anti-GBM antibodies. - The patient will likely need CVVHD given her severe acidosis. In the meantime, she was given a bicarb push and started on a bicarbonate infusion pending initiation of CVVHD - Will continue to monitor fingerstick glucose and coverage as needed. Heme: The patient with pancytopenia. Hematology was consulted and she was not felt to need a bone marrow biopsy at this time. This morning her white count and her platelets had improved. Will give her a unit of platelets, however, prior to her bronchoscopy and will also check her coags this morning. She continued to have elevated inflammatory markers which may be consistent with HLH; however, she is on steroids at this time and so will continue supportive measures. - Will followup the final results of her lower extremity duplex. - Continue with TEDs and SCDs for deep vein thrombosis (DVT) prophylaxis. Will followup results of her INR and PTT and consider starting her on heparin, as long as her platelets are stable and there is no acute bleed. GI: The patient had an OG tube placed after intubation. She has started to have some dark bloody output from the OG tube. Suspect she does have a component of gastritis, as well as given her critical illness, she is at risk for ulcer formation. - Will continue to pantoprazole twice a day, but will change to IV - Will keep her nothing by mouth and OG tube to low wall intermittent suction. Deep vein thrombosis (DVT) prophylaxis: TEDs and SCDs. Code status: Full code. The patient's and her son were updated on her critical condition. Total critical care time spent, not including any procedures, approximately 50 minutes. MTDD
[2020-02-08] VITALS (104 sets, daily range): BP systolic 72–169; BP diastolic 37–74
[2020-02-08] MEDS: HYDROCORTISONE 100 MG/2 ML VIAL (J1720 PER 1) IV SCH ×3 (00:29→16:19)
[2020-02-08] MEDS: fentaNYL CITRATE 1,000 MCG in NS 80 ML IV SCH (01:30)
[2020-02-08 02:23] LABS: IONIZED CALCIUM 4.5 MG/DL (4.5-5.3)
[2020-02-08 03:08] LABS: CREATININE FOR GFR 1.89 MG/DL (0.55-1.30); GLOMERULAR FILTRATION RATE 28.2 (>45); MAGNESIUM LEVEL 2.3 MG/DL (1.8-2.4); PHOSPHORUS LEVEL 5.9 MG/DL (2.5-4.9); POTASSIUM SERUM 4.2 MEQ/L (3.5-5.1); TROPONIN I 0.17 NG/ML (< 0.10)
[2020-02-08] MEDS ORDERED: CALCIUM GLUCONATE 1,000 MG in D5W MINI-BAG PLUS 100 ML IV ONE (03:15)
--- NOTE | 2020-02-08 03:38 | CR ---
DATE OF CONSULTATION: 02/07/2020 REASON FOR CONSULTATION: Worsening renal function and Metabolic acidosis. Note: History was obtained from chart and pt's at bedside. Pt is intubated and sedated. HISTORY OF PRESENT ILLNESS: This is a 69-year-old female with no reported significant past medical history but with possible tuberculosis (TB) exposure as a child, who had presented to our emergency room (ER) with initial complaints of fever, rigor, chills, and shortness of breath with exertion for the past month. History of present illness (HPI) was obtained by reviewing the chart and partially by her , who was at bedside. She states that 1 month prior, her was ill initially but he improved when she began to feel unwell. She noticed some abdominal discomfort with nausea and vomiting, but she denied any chest pain, diarrhea, constipation. She was last seen by her primary care provider (PCP) in November and was given a clean bill of health and does not take any medication. She did note having some high fevers as well as rigors and chills. She was evaluated in the ER for COVID, which came back negative. Patient did endorse not having any recent travel but did go to [place] in August 2020 as well as [place] in June 2019 to visit her father in a skilled nursing. She denied at the time any sick contacts, any new medication, or currently working. While she was admitted, she was started on empiric antibiotics, such as ceftriaxone and azithromycin, but continued to persist with fevers. She had two COVID-19 testing done, which was negative, as well as antibody testing, which was negative as well. She persisted to have fevers with a maximum temperature (Tmax) of 103 despite being on broad-spectrum antibiotics. Her antibiotics were then further broadened by adding cefepime and vancomycin, even though her cultures, such as respiratory panel, blood cultures, and sputum cultures, were negative. While she was admitted, she initially was on room air; and then increased oxygen demand was required, and she transitioned to high-flow nasal cannula with supplementation of 5-[address] of the chest on admission did show subtle ground-glass opacities in the upper lobes bilaterally. On the evening of 02/06/2020, patient persisted to have acute hypoxemic respiratory failure with increased oxygen demand. She was placed on Vapotherm 35 high flow with an FiO2 of 100% and was only saturating at 94%, and she was intubated at 2000 hours with an FiO2 initially of 100-80%. She was started on stress steroid dose 2 days prior and did notice that her fever curve improved with the steroid dose, but her shortness of breath continued to persist, especially with exertion. At the time of our exam, the patient was mechanically ventilated, saturating 98% on an FiO2 of 40%. At the time of our exam, patient was mechanically ventilated with an FiO2 of 40%, saturating at 98%, and appeared to be resting comfortably with multiple sedative medications on board. PAST MEDICAL HISTORY: Remote history of possible TB exposure in childhood. Denies being ever treated. SURGICAL HISTORY: Denies. SOCIAL HISTORY: Denies any illicit drug use, intravenous (IV) drug use, or smoking history. Travel to [place] in August 2020 as well as [place] June 2019. She currently lives at home with her , and both of them do not work. She is a FULL CODE status. She has no pets at home. REVIEW OF SYSTEMS: Unable to obtain because the patient is currently mechanically ventilated. PHYSICAL EXAMINATION: VITAL SIGNS: Temperature 97.9, pulse 120, respirations 30, blood pressure 93/54, pulse oximetry 98% while on mechanical ventilation with an FiO2 of 40%. INTAKE AND OUTPUT: On 02/06/2020, intake total 1360 mL, output total 750 mL with a balance of +610 mL. Intake and output for 02/07/2020, intake total 966, output total 227 with a balance of 739. GENERAL: This is a 69-year-old female lying in bed with a Eveleth score of 3, currently sedated with mechanical ventilation. Does not appear to use any accessory muscles for respiration. HEENT: Atraumatic, normocephalic. Jaundiced sclerae. Endotracheal tube (ET) tube and nasogastric (NG) tube in place. No crepitus appreciated. CARDIOVASCULAR: Tachycardic rate and rhythm. No audible murmurs can be appreciated, but difficult to assess due to ventilator sounds. PULMONARY: Bilateral crackles appreciated but no wheezing or rhonchi. Very coarse breath sounds. ABDOMEN: Soft, flat abdomen. No distention. No rebounding. No wincing noted with palpation. EXTREMITIES: No lower extremity edema. No calf tenderness. Surprisingly, patient does not appear fluid overloaded. INTEGUMENTARY: No obvious skin breakdown noted. She does have a right internal jugular (IJ) central line in place, which is currently in use. LABORATORY: WBC 20.5, hemoglobin 8.8, hematocrit 27.6, platelets 58. Sodium 137, potassium 5.8, chloride 109, carbon dioxide 16, BUN 78, creatinine 2.04, glucose 193, total bilirubin 2.4, direct bilirubin 1.8, AST 484, ALT 258, alkaline phosphatase 660, LDH 7634. ESR 65. CRP 15.50, troponin 0.23. Arterial blood gas (ABG) on 02/07/2020, pH 7.034, pCO2 of 41.5, pO2 of 158.9 with a base excess of 18.9. Coagulation: PT 14.7, INR 1.18, APTT 38.7, fibrinogen 528. D-dimer is greater than 4000. Urinalysis appears cloudy. Urine protein 2+, 1+ glucose, urine blood 2+, urobilinogen 4.0, WBC 12, RBC 11, urine bacterial 1+ with hyaline cast of 4. Immunology: IgG 526. Scleroderma negative. IgA and IgM within normal limits. Serology: CMV IgG 9.30, but IgM is less than 30.0. Toya-Dasilva virus (EBV) IgG is 86.4, but EBV capsid antigen IgM is less than 36.0. Blood cultures times two negative for growth. Sputum cultures negative but has contaminant. Bronchoalveolar lavage (BAL) from bronchoscopy currently pending. Malaria smear negative. Echocardiogram from 01/29/2020 shows sinus rhythm. Normal left ventricle (LV) size and systolic function with a normal diastolic function. No valvular disease. Borderline elevated central venous pressure (CVP) with mild or probable moderate pulmonary hypertension. EKG from 02/06/2020 shows supraventricular tachycardia, non-specific ST depression. No prior EKGs available for comparison with a right ventricle (RV) conduction delay. Current Inpatient medications: All medications were reviewed and pertinent ones include Doxy,Meropenem,Levo,nimbex,Fentanyl,Propofol,Bicarb fluids ASSESSMENT AND PLAN: 1. Acute oliguric Renal Failure: We will start CRRT today. With a chemistry showing that her BUN is 86 with a creatinine of 2.47 and her urine output today being 227, she is considered oliguric. Of course, she has a urine output less than 500 but greater than 50 mL. Even though she has a López and she is making some urine, she is not making an adequate amount. Continuous renal replacement therapy (CRRT) was consented by the . He was discussed the risks and benefits of dialysis, and he was was agreeable to this. check autoimmune serology including anti GBM,OSCAR,ANCA,Anti DS DNA Ab to rule out pulm renal syndrome. 2. High Anion gap metabolic acidosis. ABG from this morning did show a pH of 7.034 with a pCO2 of 41.5.Possible cause of the acute metabolic acidosis is renal failure and lactic acidosis.Acidosis will be managed with CVVHDF. IV bicarb can be stopped once dialysis is started. 3. Septic Shock. unknown etiology, all cultures negative so far, She has bilat interstitial infiltrates in lung, elevated liver enzymes. She is currently on broad-spectrum antibiotic coverage with meropenem, doxycycline, atovaquone, and will be started on an antifungal. CVP done earlier was ~12. Currently requiring Levo and Vaso. No fluid removal with CVVHD at this time. 4. Hyperkalemia. Sec to acidosis and renal failure.Should be corrected with CRRT. Will monitor. 5. Shock liver: Avoid hepatotoxic medications. 6. Ventilator Dependent respiratory failure. Management per critical care team. Bilateral interstitial infiltrates on imaging. Bronch done today. Results are pending. 7.Anemia and thrombocytopenia: d-dimer is high, LFTs high, transfuse PRN for Hb<8. Thank you for involving us in the care of this patient. Total critical care time spent in the management of this patient in ICU today was 1hr 30 minutes. Excluding all the procedures. MTDD
[2020-02-08 06:01] LABS: ABG BASE EXCESS -4.8 (-2.0-2.0); ABG HCO3 18.1 MEQ/L (22.0-26.0); ABG PARTIAL PRESSURE CO2 25.8 mmHg (35.0-45.0); ABG PARTIAL PRESSURE O2 80.8 mmHg (75.0-100.0); ABG STANDARD HCO3 20.5 MEQ/L (22.0-26.0); ABG TOTAL CO2 18.9 MEQ/L (23.0-31.0); ABG pH (ARTERIAL) 7.463 UNITS (7.350-7.450)
--- NOTE | 2020-02-08 06:11 | RO ---
DATE OF PROCEDURE: 02/07/2020 PROCEDURE: Hemodialysis catheter insertion. INDICATION: Hemodialysis access. PREPROCEDURE DIAGNOSIS: Acute renal failure. POSTPROCEDURE DIAGNOSIS: Acute renal failure. ATTENDING PHYSICIAN: Dr. Karen Merida CONSENT: Consent was obtained from the patient's prior to procedure. Indication, risks and benefits were explained at length. PROCEDURE SUMMARY: A central line insertion practice form was completed by independent observer. A time out was performed. Full sterile technique was maintained throughout the procedure including surgical cap, mask, protective eye wear, sterile gown and sterile gloves. The right inguinal region was prepped using chlorhexidine scrub and draped in sterile fashion using a full drape and a sterile probe cover employed. The right femoral vein was identified using ultrasound and anesthesia was achieved over the vein using 1% lidocaine. Using real time out of plane ultrasound guidance, the introducer needle was inserted into the right femoral vein. Venous blood was withdrawn and the syringe was removed and a guidewire was advanced into the introducer needle. A small incision was made at the skin surface with the scalpel and the introducer needle was removed over the guidewire. A dilator was exchanged over the guidewire and after appropriate double dilation was obtained the dilator was exchanged over the wire for a dual lumen hemodialysis catheter. The wire was removed and the catheter was sutured in place. A sterile chlorhexidine impregnated dressing was placed over the catheter at the insertion site. The catheter was instilled with the appropriate amounts of heparin lock. The patient tolerated the procedure without any hemodynamic compromise. Estimated blood loss is 5 mL. MTDD
--- NOTE | 2020-02-08 06:41 | REP ---
Clinical: Status post intubation. Comparison: 02/07/2020, 02/06/2020. Findings: Endotracheal tube, nasogastric tube, and right IJ line in stable satisfactory position. The mediastinum and cardiac silhouette are relatively normal. Diffuse bilateral alveolar and interstitial infiltrates along with left lower lobe/retrocardiac consolidation are again noted and may be minimally improved compared to prior examination. No pneumothorax. Skeletal structures stable. Impression: Diffuse bilateral opacities may be slightly improved. Electronically Signed by Dickson Green MD 02/08/2020 06:32 A
[2020-02-08] MEDS: VASOPRESSIN INJ 20 UNITS in NS 499 ML IV SCH ×3 (06:53→22:37)
--- NOTE | 2020-02-08 07:00 | RO ---
DATE OF PROCEDURE: 02/07/2020 PROCEDURE: Bronchoscopy procedure note. INDICATION: Acute hypoxemic respiratory failure. PREPROCEDURE DIAGNOSIS: Acute hypoxemic respiratory failure. POSTPROCEDURE DIAGNOSIS: Acute hypoxemic respiratory failure. ATTENDING PHYSICIAN: Dr. Karen Merida CONSENT: Consent was obtained from the patient's prior to the procedure. The risks, benefits and complications were discussed with her prior to the procedure. ANESTHESIA: The patient is on propofol for sedation as well as Fentanyl drip for analgesia while intubated. She is also on neuromuscular blockade with Nimbex drip. PROCEDURE SUMMARY: A time out was performed prior to procedure. Respiratory therapy and CLINICAL NURSING PROFESSOR was present during the procedure to assist with medications and bag ventilation during bed side bronchoscopy. The patient was on continuous cardiac and pulse oximetry monitoring for the procedure. The video bedside bronchoscopy system was utilized. Cetacaine spray was used to anesthetize the airway and provide lubrication through the endotracheal (ET) tube. On bronchoscopy, the patient was found to have some dried blood secretions noted in the airways bilaterally. There was also some thickened tracheal mucosa versus very thick secretions in the trachea. The bloody secretions were noted more in the right lower lobe as well as in the left upper lobe. The patient otherwise did not have any significant secretions or any endobronchial lesions noted. She had bronchoalveolar lavage performed in the right upper lobe with sequential aliquots performed. With the sequential bronchoalveolar lavages, it was not definitely increasing hemorrhagic lavage fluid, and although she did have some bloody lavage fluid it did not appear to be increasingly hemorrhagic. The patient also had a bronchoalveolar lavage performed in the left upper lobe lingular segment. The patient tolerated the procedure well. Post procedure, the patient was placed back on the mechanical ventilator. The patient tolerated the procedure without any hemodynamic compromise. There were no immediate complications. PENNY
[2020-02-08 08:40] LABS: HEMATOCRIT 23.9 % (36.0-47.0); HEMOGLOBIN 8.7 g/dl (12.0-15.5); MEAN CORPUSCULAR HEMOGLOBIN 31.3 pg (27.0-33.0); MEAN CORPUSCULAR HGB CONC 36.4 g/dl (32.0-36.5); RED BLOOD COUNT 2.78 10^6/uL (4.00-5.40); WHITE BLOOD COUNT 5.9 10^3/uL (4.0-10.0)
[2020-02-08 08:41] LABS: PLATELET COUNT, AUTOMATED 34 10^3/uL (150-450)
[2020-02-08] MEDS: FLUTICASONE PROP 0.05% NASAL SPRAY 16 GM (FLONASE) NARES SCH ×2 (09:00→20:24)
[2020-02-08 09:19] LABS: PARTIAL THROMBOPLASTIN TIME 29.9 SECONDS (25.0-38.4)
[2020-02-08 09:22] LABS: D-DIMER QUANT 3816.54 ng/ml (<500)
[2020-02-08] MEDS: DOXYCYCLINE HYCLATE 100 MG in D5W MINI-BAG PLUS 100 ML IV SCH ×2 (09:25→20:23)
[2020-02-08] MEDS: PANTOPRAZOLE 40MG VIAL (C9113 PER 1) IV SCH ×2 (09:25→20:23)
[2020-02-08] MEDS: CHLORHEXIDINE GLUCONATE 0.12 % 15ML UDC (PERIDEX ORAL RINSE) MT SCH ×2 (09:26→20:22)
[2020-02-08] MEDS: ATOVAQUONE SUSP 750MG/5ML 210 ML BTL PO SCH (09:26)
[2020-02-08] MEDS: MEROPENEM INJ 1 GM in IV 1 EA IV SCH ×2 (09:26→20:23)
[2020-02-08 09:27] LABS: LYMPHOCYTES 2 % (16-44); MONOCYTES 1 % (0-5); NEUTROPHILS 96 % (28-66)
[2020-02-08 09:28] LABS: PLATELET ESTIMATE DECREASED (NORMAL)
[2020-02-08] MEDS ORDERED: GASTROGRAFIN SOLUTION 30ML PO SCH (10:00)
[2020-02-08 10:03] LABS: ABG HCO3 19.9 MEQ/L (22.0-26.0); ABG MODE OF VENT ac/vc; ABG O2 LITER FLOW 35; ABG O2 SATURATION 92.6 % (95.0-99.0); ABG PARTIAL PRESSURE CO2 27.6 mmHg (35.0-45.0); ABG PARTIAL PRESSURE O2 71.1 mmHg (75.0-100.0); ABG PATIENT RESP RATE 25 /MIN; ABG PEEP 6; ABG STANDARD HCO3 21.9 MEQ/L (22.0-26.0); ABG TIDAL VOLUME 400 cc; ABG TOTAL CO2 20.7 MEQ/L (23.0-31.0); ABG pH (ARTERIAL) 7.475 UNITS (7.350-7.450)
[2020-02-08 10:16] LABS: ALBUMIN 1.8 GM/DL (3.2-5.2); BILIRUBIN,DIRECT 2.3 MG/DL (0.0-0.2); BILIRUBIN,TOTAL 3.2 MG/DL (0.2-1.0); C REACTIVE PROTEIN QUANTITATIV 11.7 MG/DL (0.00-0.30); CALCIUM LEVEL 8.3 MG/DL (8.8-10.2); CREATININE FOR GFR 1.8 MG/DL (0.55-1.30); GLOMERULAR FILTRATION RATE 29.8 (>45); MAGNESIUM LEVEL 2.3 MG/DL (1.8-2.4); PHOSPHORUS LEVEL 4.8 MG/DL (2.5-4.9); POTASSIUM SERUM 4.1 MEQ/L (3.5-5.1); TOTAL PROTEIN 4.7 GM/DL (6.4-8.2)
[2020-02-08] MEDS ORDERED: CALCIUM GLUCONATE 1,000 MG in NS MINI-BAG PLUS 100 ML IV ONE (10:30)
[2020-02-08 11:04] LABS: MONOCYTES/MACROPHAGES, BAL 25 %; MONOCYTES/MACROPHAGES, BAL 30 %
[2020-02-08 11:15] LABS: INR 1.82; PROTHROMBIN TIME 20.8 SECONDS (11.8-14.0)
[2020-02-08] MEDS ORDERED: GLUCAGON INJ 1MG VIAL SC PRN (11:30)
[2020-02-08] MEDS ORDERED: GLUCOSE 4GM CHEW TABLET PO PRN (11:30)
[2020-02-08] MEDS: GASTROGRAFIN SOLUTION 30ML PO SCH ×2 (11:58→12:24)
[2020-02-08] MEDS: MIDAZOLAM INJ 2MG/2ML VIAL (J2250 PER 1MG) IV PRN (12:03)
[2020-02-08] MEDS: HumaLOG INSULIN (NovoLOG) PER UNIT SC SCH ×3 (12:24→20:23)
[2020-02-08] MEDS: propofoL 1,000 MG in IV 1 EA IV SCH ×3 (12:24→22:37)
--- NOTE | 2020-02-08 13:13 | IPN ---
DATE OF SERVICE: 02/08/2020 SUBJECTIVE: The patient was seen and examined at the bedside today morning in the intensive care unit (ICU). She is currently intubated, sedated. Her Nimbex has turned off. Levophed and vasopressin are also being weaned down. She is currently requiring only 2 mcg of Levophed. She is still on vasopressin 0.04 units. She was started on continuous veno-venous hemodiafiltration (CVVHDF) yesterday in the afternoon. Total cumulative fluid balance since the time she was started on CVVHDF is 3.6 liters. The patient was hypothermic yesterday in the afternoon after starting CVVHDF. She needed a warming blanket and a heater was placed on the tubing for CVVHDF. The patient remains oliguric at this time. However, her electrolytes and acid-base status is significantly better since after starting CVVHDF. OBJECTIVE: Vital Signs: Temperature is 96.4 degrees Fahrenheit - rectal, blood pressure is 123/55, pulse is 60, respiratory rate 28, saturating 94% on the vent with 35% FiO2. Intake and Output. Urine output recorded since overnight is only 45 mL. Gastric drainage is 60 mL. Cumulative fluid balance since yesterday is 3.6 liters. Weight in the bed scale is not available. PHYSICAL EXAMINATION: General: The patient is intubated, sedated. Eyes are closed. Head and Neck Exam: Pupils are equally round and reactive to light. Patient has scleral jaundice. She has an endotracheal tube and orogastric tube. Neck is supple. She has a right internal jugular (IJ) triple-lumen catheter. Cardiovascular: S1, S2. Trace edema of the bilateral lower extremities. Respiratory: The patient has an endotracheal tube. Mild inspiratory crackles were heard at the bases, otherwise bilateral equal air entry. Abdomen is soft. Positive bowel sounds. No organomegaly was noted. Genitourinary: She has an indwelling López catheter. There is small amount of dark urine in the López. Musculoskeletal: No clubbing or cyanosis. BARREL LINER: The patient is intubated and sedated. Her Nimbex was just turned off so she is unable to follow commands at this time. Skin: The patient has jaundice of the skin, otherwise no rashes or ulcers. LAB REVIEW: CBC showed a WBC of 5.9, hemoglobin 8.7 and platelets are 34. INR is 1.8. D-dimer is 3816. ABG done today morning showed pH of 7.47, pCO2 of 27, pO2 of 71, bicarb is 20 and O2 sat is 92%. BMP done today morning showed a sodium 139, potassium 4.1, chloride 104, bicarb 22, BUN 57, creatinine 1.8, lactic acid level is 5 now. Calcium is 8.3, ionized calcium is 4.5, total bilirubin is 3.2, direct bilirubin is 2.3. AST 2181. ALT is 1168. Alkaline phosphatase is 478. LDH is 5746. C-reactive protein is 11.7. Albumin is 1.8. Serology showed CMV IgG antibodies high, IgM is negative. Toya-Dasilva virus capsid antigen IgG is high and IgM is negative. Microbiology: All the cultures are negative so far. IMAGING STUDIES: Chest x-ray was done today morning which showed a diffuse bilateral opacities which are slightly improved today as compared with yesterday. CURRENT INPATIENT MEDICATIONS: The patient's medications were all reviewed by myself. She is currently on Levophed, but it has been weaned down to 2 mcg. She is getting calcium gluconate according to CVVHD protocol. IV bicarb fluids stopped yesterday. She continues to be on Vibramycin. She is currently on meropenem 1 gram every 12 hours. She is also on fentanyl drip. Nimbex has been stopped. She is still on vasopressin. She is on propofol drip. Atovaquone has been held because of elevated liver enzymes. She continues to be on hydrocortisone 50 mg IV every 8 hours. Voriconazole is on hold. ASSESSMENT/PLAN: 1. Acute oliguric renal failure. The patient is currently on CVVHDF. I would continue the CVVHDF for now, but because of positive fluid balance and improving blood pressure I would start removing fluid for a MAP of more than 70 and keep her even for a MAP of 60-70 and no fluid removal for MAP less than 60. 2. Metabolic acidosis. It is secondary to renal failure and lactic acidosis. Acidosis is getting better with CVVHDF. Continue the current regimen. Serum bicarb level has improved within the normal range according to the latest labs and lactic acid is slowly improving too. 3. Septic shock. Unknown etiology at this time. The patient remains on pressors, but the requirement of pressors is coming down. All the cultures are negative. She is being covered for bacteremia versus parasitemia. Continue current dose of meropenem and doxycycline. 4. Shock liver. The patient's liver enzymes are going up. She was started on atovaquone, which has been held after two dosages because of her worsening liver function. 5. Vent dependent respiratory failure. Vent management is a being done by pulmonary service. Her oxygen requirement is 35% only and mixed metabolic and respiratory acidosis is significantly better now. 6. Hyperkalemia. It was secondary to renal failure and severe metabolic acidosis. Potassium level has improved. Dialysate has been changed to 4K now today with CVVHDF. 7. Anemia. The patient's hemoglobin dropped to 7.4 yesterday. She was given 1 unit of packed red blood cell (PRBC) transfusion with dialysis. Hemoglobin level has improved to 8.7. Transfuse p.r.n. for hemoglobin less than 8. 8. Nutrition. The patient is being started on total parenteral nutrition without fat. She can use low K TPN formula. Total critical care time spent in the management of this patient today morning in the ICU, excluding all the procedures was 1 hour. MTDD
[2020-02-08 14:24] LABS: IONIZED CALCIUM 4.3 MG/DL (4.5-5.3)
--- NOTE | 2020-02-08 14:28 | REP ---
CT CHEST WITHOUT IV CONTRAST: CT chest performed without IV contrast and compared to a prior study of 01/31/2020. Sagittal and coronal reconstruction images are performed. Endotracheal tube is seen with the tip just above the kendall. Nasogastric tube is seen with sideport in the fundus of the stomach. Right central venous catheter is seen with the tip in the superior vena cava. The heart is slightly enlarged. There is no gross mediastinal or axillary adenopathy. There is no pericardial effusion. There are moderate bilateral pleural effusions. There are diffuse dense infiltrates in both lungs which have increased since the prior study. There are mild diffuse degenerative changes of the spine. IMPRESSION: Increased diffuse bilateral infiltrates, worse in the upper lobes than the lower lobes. Moderate bilateral pleural effusions have increased. Endotracheal tube, nasogastric tube and central venous catheter as above. Electronically Signed by Tacho Lu MD 02/08/2020 05:05 P
--- NOTE | 2020-02-08 14:35 | REP ---
CT ABDOMEN AND PELVIS WITH ORAL CONTRAST: CT abdomen and pelvis performed with oral contrast. IV contrast was not administered. This somewhat limits the exam. Liver, spleen, adrenals, pancreas and kidneys are grossly unremarkable. There is mild atherosclerotic calcification of the abdominal aorta without aneurysm. No gross adenopathy is seen. No free air is seen. There is no definite bowel wall thickening. There is mild diffuse edema throughout the mesentery which is nonspecific. There is mild abdominal pelvic ascites present. There is no evidence of small bowel obstruction. An IUD is seen within the uterus. A López catheter is seen in a collapsed urinary bladder. A rectal catheter is seen. There is a catheter in the right femoral vein with the tip in the right common iliac vein. Gallbladder is moderately distended and contains multiple gallstones. IMPRESSION: Mild diffuse mesenteric edema and mild diffuse ascites, nonspecific. Gallbladder is moderately distended and contains multiple gallstones. Electronically Signed by Tacho Lu MD 02/08/2020 05:05 P
[2020-02-08 15:16] LABS: ALBUMIN 1.7 GM/DL (3.2-5.2); BILIRUBIN,DIRECT 1.9 MG/DL (0.0-0.2); BILIRUBIN,TOTAL 2.5 MG/DL (0.2-1.0); CALCIUM LEVEL 7.8 MG/DL (8.8-10.2); GLOMERULAR FILTRATION RATE 26.4 (>45); MAGNESIUM LEVEL 2.3 MG/DL (1.8-2.4); PHOSPHORUS LEVEL 5.3 MG/DL (2.5-4.9); POTASSIUM SERUM 4.1 MEQ/L (3.5-5.1); TOTAL PROTEIN 4.4 GM/DL (6.4-8.2)
[2020-02-08] MEDS: NOREPINEPHRINE BITARTRATE 16 MG in D5W 484 ML IV SCH ×2 (16:00→16:19)
[2020-02-08] MEDS: CALCIUM GLUCONATE 1,000 MG in NS MINI-BAG PLUS 100 ML IV SCH ×2 (16:20→17:23)
--- NOTE | 2020-02-08 16:43 | CCN ---
DATE: 02/08/2020 The patient was seen and examined this morning during bedside rounds. Overnight the patient was continued on continuous veno-venous hemodialysis (CVVHD). She had worsening lactic acidosis despite improvement in her blood pressure with the ability of weaning down her Levophed requirements with the addition of vasopressin. Her CVVHD was with no fluid removal. The patient this morning's lactic acid has been slowly improving. The patient is on sedation with propofol still and with fentanyl for analgesia as well as Nimbex for neuromuscular blockade. Her arterial blood gases (ABGs) have shown improvement in her mixed metabolic and respiratory acidosis. The patient's orogastric (OG) tube had been having maroon colored output, however, overnight she started having more dark brown output from the OG tube. Overnight the patient was also noted to be hypothermic. Her fluids were warmed on the dialysis machine and she was also placed on a warming blanket with improvement in her temperature. She was also noted to be bradycardic with the hypothermia, however was maintaining a blood pressure without needing increased amounts of Levophed. PHYSICAL EXAMINATION: VITAL SIGNS: Temperature 97.7, pulse 62, blood pressure 159/78, oxygen saturation 98% on 35% FiO2. In 3.6 liters, out 450 mL. GENERAL: The patient is intubated and sedated. She is continued on neuromuscular blockade and her [id number] is 4/4. HEENT: Normocephalic, atraumatic. Moist mucous membranes. The patient has increased scleral icterus noted and the pupils are small but reactive to light bilaterally. NECK: Is supple. Trachea is midline. Unable to palpate any sternal adenopathy. CARDIOVASCULAR: Regular rate and rhythm. Normal S1, S2. No murmurs appreciated. PULMONARY: There is coarse ventilated breath sounds bilaterally with decreased breath sounds at the bases. No significant wheezing, rales, or rhonchi. LOWER EXTREMITIES: The patient has slight pitting edema particularly in the sacral region as well as in her upper extremities now bilaterally. LABORATORY DATA: WBC 8.2, hemoglobin 7.4, platelets are 35. Chemistry: Sodium is 141, potassium 4.2, chloride 104, bicarbonate 21, BUN 58, creatinine was 1.89. Glucose is 221. Lactic acid trended down this morning to 7.9 with further improvement to 5.0. Troponin is trending down to 0.17. AST, ALT increased to 2181 and 1168. Bilirubin increased to 3.2, alkaline phosphatase 478. LDH trending down to 5746. CRP trending down to 11.7. Albumin 1.8. INR 1.82. ABG: pH 7.463, pCO2 of 25.8, pO2 of 80.8. MICROBIOLOGY: CMV IgG positive, IgM negative, EBV IgG positive, IgM negative. IMAGING: Chest x-ray shows endotracheal tube (ET) tube in good position and OG tube coursing below the diaphragm. There was right internal jugular (IJ) triple lumen in place. There are bilateral diffuse opacities, although appears to have some slight improvement possibly in the more dense right lower lobe opacity. ASSESSMENT AND PLAN: Ms. Lujan is a 69-year-old female with no significant medical history who presented with complaints of worsening fevers and chills for the past month as well as myalgias. The patient was initially admitted and treated for viral pneumonia versus atypical pneumonia with ceftriaxone and azithromycin. She had persistent fevers and increasing inflammatory markers and her antibiotics were brought in to vancomycin and cefepime. Despite that she continued to have daily fevers and worsening hypoxemic respiratory failure with imaging showing worsening bilateral ground-glass opacities more in the upper lobes as well as new small bilateral pleural effusions. The patient was started on empiric treatment for potential fungal pneumonia as well as more atypical organisms with doxycycline. The patient was also started on steroids given the severe inflammatory response for potential HLH as well as for possible vasculitis or inflammatory interstitial lung disease. The patient's fever had improved. However, she had worsening hypoxemic respiratory failure and decompensated on the evening of 02/06/2020 and required intubation and mechanical ventilation. During intubation, she did have vomiting with suspicion of aspiration. Her antibiotics were broadened to meropenem. The patient then had worsening renal failure as well as liver failure. She also has severe metabolic and respiratory acidosis and was started on CVVHD yesterday. NEURO: The patient is intubated and sedated. - The patient is on propofol for sedation and fentanyl for analgesia. She was also requiring neuromuscular blockade due to her vent dyssynchrony. Her [id number] is 4/4. this morning and her ABGs and her vent synchrony has also improved. - Will attempt to wean her off of the Nimbex and continue with propofol for sedation with Versed as needed to help with her vent synchrony and continue with fentanyl for analgesia. - The patient does have elevated ammonia level and given her worsening liver suspect she does have a component of a metabolic encephalopathy. She also had a severe metabolic acidosis, which may have initially contributed to some encephalopathy as well. CARDIAC: The patient was started on Levophed for vasopressor support after her intubation. She did have elevated troponin likely due to demand ischemia given her echocardiogram, which had shown a hyperdynamic ejection fraction (EF) with some evidence of hypertrophied right ventricle and moderate pulmonary hypertension likely due to her hypoxemic lung disease. - The patient has been weaned down on her Levophed. She is on only 2 mcg per minute with the vasopressin and has been maintaining mean arterial pressure (MAP) above 65. - Will continue with vasopressor support and will likely keep her on the low dose of Levophed to santa's helper in fluid removal with CVVHD. - The patient had worsening lactic acidosis likely due to her worsening liver failure. Her lactic acid has been trending down now and so will continue to trend. PULMONARY: The patient with acute hypoxemic respiratory failure now intubated and on mechanical ventilation. The patient was initially being treated for possible bacterial pneumonia on admission. With her worsening hypoxemic respiratory failure she was also treated for possible PCP pneumonia initially with Bactrim and atovaquone. Given her worsening renal and liver function, the Bactrim was initially first discontinued and then the atovaquone, which was added on when the Bactrim was discontinued, has also now been held due to her liver failure. - The patient's initial sputum cytology was negative for PCP. She did have a bronchoscopy performed yesterday and the bronchoalveolar lavage (BAL) sputum cytology is still pending. - The patient will also be continued with doxycycline for more atypical organism. Will also continue with meropenem, which was added for a possible component aspiration pneumonia given her initial vomiting during her intubation procedure with anesthesia. - The patient was also started on voriconazole initially. However, given her worsening liver failure, this was also held. Her fungal titer testing is still pending, including her Fungitell as well. - The patient has had negative sputum acid-fast bacilli (AFB) times three as well as a negative QuantiFERON Gold and PPD. Her airborne isolation was discontinued yesterday and her symptoms are likely not due to tuberculosis. - The viral etiology is still positive. However, while her EBV IgG and CMV IgG was positive the IgM was negative suggesting a previous infectious process. She does have EBV and CMV PCR still pending which we will followup results of. - Given her BAL showing some hemorrhagic output, there was also concern for potential vasculitis and a possible pulmonary renal syndrome. Her antineutrophil cytoplasmic antibodies ( ANCA) OSCAR are still pending. However, she is continued with empiric treatment with steroids with hydrocortisone. Her BAL was not entirely consistent on visual exam for DAH, however, on the cell counts her sequential BAL did have increasing red blood cells (RBCs). Her bronchoscopy was also performed however while the patient was coagulopathic. - Continue followup Infectious Disease (ID) consult and recommendations. The patient has various other tests pending still for her infectious workup. - There was also suspected to be a component of pulmonary edema and third spacing initially. She was given Lasix with minimal improvement in her oxygenation or in her opacities on imaging. Her BNP repeat had also improved. 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 However, given her shock, further diuresis was not continued. Now that she has on less Levophed requirement the patient will have some fluid removal, which may help with some of her pulmonary edema and effusions. - The patient will be continued on mechanical ventilation with volume control settings. Will continue to wean down her respiratory rate and her PEEP and FiO2 as tolerated. She will be on a 400/25/35 and 6, and will followup an ABG in 1 hour and likely continue to wean down her respiratory rate. - Continue with vent bundle care with chlorhexidine mouthwash and head of bed elevation. - Continue with daily ABGs and chest x-rays while intubated. RENAL: The patient had worsening renal failure as well as a combined metabolic acidosis and a respiratory acidosis with significant lactic acidosis. She was oliguric and started on CVVHD. With the CVVHD the patient's acidosis has significantly improved as well as her hyperkalemia. - Appreciate renal consult recommendations. Given improvement in her blood pressure and less vasopressor requirements, she will be aimed for some gentle fluid removal during CVVHD. - The patient also has anti GBM antibodies pending as part of her workup for hepatopulmonary syndrome. - The patient has been hyperglycemic. She will get fingerstick glucose checks and insulin coverage as needed. GASTROINTESTINAL (GI): The patient had an OG tube placed after intubation. She initially had dark maroon output from the OG tube, which now is dark brown output. The patient also has worsening liver failure likely from a component of septic shock. She did also have abnormal transaminitis prior to her septic shock as well. - Will continue to trend her liver function tests (LFTs). Her other inflammatory markers are slowly improving. - The patient does have elevated bilirubin and her initial ultrasound did show some gallstones but no evidence of acute cholecystitis. She is on meropenem, which would cover broadly if she does have acute cholecystitis. - The patient's CT abdomen and pelvis yesterday was held given her severe acidosis. She has improved. Will get a CT abdomen and pelvis as well as a chest CT. - Will continue the patient nothing by mouth with wall intermittent suction. - Will continue pantoprazole twice a day. - Given her hypoalbuminemia, will start the patient on total parenteral nutrition (TPN) with no fat, with a low potassium given her renal failure. HEME: The patient has pancytopenia. She did receive a unit of platelets yesterday prior to her bronchoscopy as well as 2 units of fresh frozen plasma (FFP). Early this morning her hemoglobin had trended down and she was ordered for unit of packed red blood cells (PRBC) with appropriate response. Hematology has been consulted and she was not felt to need a bone marrow biopsy at that time. - Will continue however to monitor her H/H and platelets and transfuse as needed. 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 She is on steroids and will continue with supportive measures. Some of her inflammatory markers have improved. Her thrombocytopenia however, has persisted. The patient does have elevated D-dimer likely as an acute inflammatory marker. She did have a lower extremity duplex performed on 02/06/2020, which was negative for acute deep venous thrombosis (DVT). - The patient also has continued coagulopathy likely in the setting of her liver failure. Her INR has slowly improved but is still abnormal. DVT PROPHYLAXIS: Thromboembolic deterrent (KURTIS) and sequential compressive devices (SCDs). CODE STATUS: FULL CODE. Total critical care time spent, not including procedures, approximately 50 minutes. MTDD
[2020-02-08] MEDS ORDERED: SODIUM ACETATE IV SCH ×7 (18:00)
[2020-02-08] MEDS ORDERED: [UNRECOGNIZED DRUG - OTHER] IV SCH ×7 (18:00)
[2020-02-08] MEDS ORDERED: SODIUM CHLORIDE IV SCH ×7 (18:00)
--- NOTE | 2020-02-08 18:50 | IPNPDOC ---
Date Seen The patient was seen on 02/08/20. Progress Note SUBJECTIVE: The patient continues on intermittent pressor support, CVVH. Labs looking somewhat better today. OBJECTIVE PHYSICAL EXAMINATION: VITAL SIGNS: Please see below. GENERAL APPEARANCE: Laying in bed, appears stated age, no acute distress, calm, cooperative HEENT: EOMI, PERRLA, neck is supple with no thyromegaly or lymphadenopathy RESPIRATORY: Lungs are clear to auscultation bilaterally with no adventitious breath sounds appreciated CARDIOVASCULAR: no JVD, RRR, no murmurs/rubs/gallops, normal S1 and S2 ABDOMEN: +BS, soft, slightly protuberant, no masses/organomegaly EXTREMITIES: no clubbing, cyanosis or edema noted NEUROLOGICAL: unable to perform PSYCHIATRIC: unable to perform Skin: No rashes or ulcers appreciated, warm and well-perfused LN: No significant cervical or inguinal lymphadenopathy LABORATORY DATA, IMAGING STUDIES, MICROBIOLOGY: Please see below. CT CHEST: CT chest performed without IV contrast and compared to a prior study of 01/31/2020. Sagittal and coronal reconstruction images are performed. Endotracheal tube is seen with the tip just above the kendall. Nasogastric tube is seen with sideport in the fundus of the stomach. Right central venous catheter is seen with the tip in the superior vena cava. The heart is slightly enlarged. There is no gross mediastinal or axillary adenopathy. There is no pericardial effusion. There are moderate bilateral pleural effusions. There are diffuse dense infiltrates in both lungs which have increased since the prior study. There are mild diffuse degenerative changes of the spine. IMPRESSION: Increased diffuse bilateral infiltrates, worse in the upper lobes than the lower lobes. Moderate bilateral pleural effusions have increased. Endotracheal tube, nasogastric tube and central venous catheter as above. CT ABDOMEN AND PELVIS WITH ORAL CONTRAST: CT abdomen and pelvis performed with oral contrast. IV contrast was not administered. This somewhat limits the exam. Liver, spleen, adrenals, pancreas and kidneys are grossly unremarkable. There is mild atherosclerotic calcification of the abdominal aorta without aneurysm. No gross adenopathy is seen. No free air is seen. There is no definite bowel wall thickening. There is mild diffuse edema throughout the mesentery which is nonspecific. There is mild abdominal pelvic ascites present. There is no evidence of small bowel obstruction. An IUD is seen within the uterus. A López catheter is seen in a collapsed urinary bladder. A rectal catheter is seen. There is a catheter in the right femoral vein with the tip in the right common iliac vein. Gallbladder is moderately distended and contains multiple gallstones. IMPRESSION: Mild diffuse mesenteric edema and mild diffuse ascites, nonspecific. Gallbladder is moderately distended and contains multiple gallstones. DVT prophylaxis ordered?: TEDS/SCDs ASSESSMENT AND PLAN: This is a 69-year-old female with history of fevers and chills progressively worsening over the past month, and episodic subjective shortness of breath, found to have elevated inflammatory markers, concerning for viral versus bacterial pneumonia. She is COVID-19 negative. PROBLEMS: 1. Fever of unknown origin: concerning for acute viral PNA vs atypical PNA vs reactivated TB vs malignancy -CT chest today concerning for worsening fluid overload Current empiric antibiotic/antifungal treatment: -Atovaquone, Doxycycline, Meropenem, Voriconazole Empiric steroids: -Dexamethasone, Hydrocortisone -Pending BAL results and AFB -Previous Sputum AFB negative for growth x2 -Blood cultures no growth to date -Inflammatory markers (Ferritin, LDH, CRP) increasing. Will continue to trend. Concerning for HLH -Nephrology consulted for acute renal failure and hyperkalemia. On CVVH. s/p bicarb/calcium gluconate -Infectious disease consulted. Appreciate recommendations 2. Possible PNA -Empiric treatment as listed above -Pro calcitonin found to be 0.17, therefore less likely bacterial infection -Respiratory panel found to be negative -Mycoplasma pneumonia IgG found to be elevated. May suggest history of infecti on, but not necessarily current infection -Quant Gold test, PPD, Legionella, EBV, CMV, Scleroderma ordered to rule out atypical pathology -Continue Tylenol, ibuprofen for fevers -MDI resp treatment as needed 3. Tranaminitis: -Liver function worsening. Will continue to monitor 4. Thrombocytopenia: likely 2/2 infection vs antibiotics -Medical Oncology consulted. Appreciate recommendations DISPOSITION: pending clinical improvement. Attending attestation: I evaluated and examined the patient in person; I discussed the care with Resident in detail and agree with the plan above. VS, I&O, 24H, Fishbone Vital Signs/I&O Vital Signs Date Time Temp Pulse Resp B/P (MAP) Pulse Ox O2 Delivery O2 Flow Rate FiO2 02/08/20 18:30 96.3 52 20 125/61 (82) 96 Ventilator 40 02/06/20 20:00 35.0 I&O- Last 24 Hours up to 6 AM 02/08/20 06:00 Intake Total 4791.0 ml Output Total 297 ml Balance 4494.0 ml Laboratory Data 24H LABS Laboratory Tests 2 02/07/20 20:46: Nucleated Red Blood Cells % (auto) 11.3H, Immature Platelet Fraction 12.4H, Activated Partial Thromboplast Time 34.1, Anion Gap 17H, Glomerular Filtration Rate 25.8L, Calcium Level 7.7L, Whole Blood Ionized Calcium 4.2L, Phosphorus Level 6.5H, Magnesium Level 2.7H 02/07/20 20:50: Lactic Acid Level 12.4*H 02/08/20 02:11: Anion Gap 17H, Glomerular Filtration Rate 28.2L, Calcium Level 8.0L, Whole Blood Ionized Calcium 4.5, Phosphorus Level 5.9H, Magnesium Level 2.3, Lactic Acid Level 7.9*H, Troponin I 0.17#H 02/08/20 05:39: Blood Gas Bicarbonate Standard 20.5L, Arterial Blood pH 7.463H, Arterial Blood Partial Pressure CO2 25.8L, Arterial Blood Partial Pressure O2 80.8, Arterial Blood Total CO2 18.9L, Arterial Blood HCO3 18.1L, Arterial Blood Base Excess - 4.8L, Arterial Blood Oxygen Saturation 95.0 02/08/20 07:56: Neutrophils (%) (Auto) , Nucleated Red Blood Cells % (auto) 13.1H, Neutrophils 96H, Band Neutrophils 1, Lymphocytes (Manual) 2L, Monocytes (Manual) 1, Red Blood Cell Morphology NORMAL, Platelet Estimate DECREASED, Prothrombin Time 20.8H, Prothromb Time International Ratio 1.82, Activated Partial Thromboplast Time 29.9, Fibrinogen 401, D-Dimer, Quantitative 3816.54H, Anion Gap 13, Glomerular Filtration Rate 29.8L, Lactic Acid Followup at 4 Hours 5.0*H, Calcium Level 8.3L, Whole Blood Ionized Calcium 4.5, Phosphorus Level 4.8, Magnesium Level 2.3, Total Bilirubin 3.2H, Direct Bilirubin 2.3H, Aspartate Amino Transf (AST/SGOT) 2181H, Alanine Aminotransferase (ALT/SGPT) 1168H, Alkaline Phosphatase 478H, Lactate Dehydrogenase 5746H, C-Reactive Protein, Quantitative 11.70H, Total Protein 4.7L, Albumin 1.8L, Albumin/Globulin Ratio 0.6L 02/08/20 09:46: Blood Gas Bicarbonate Standard 21.9L, Arterial Blood pH 7.475H, Arterial Blood Partial Pressure CO2 27.6L, Arterial Blood Partial Pressure O2 71.1L, Arterial Blood Total CO2 20.7L, Arterial Blood HCO3 19.9L, Arterial Blood Base Excess - 3.0L, Arterial Blood Oxygen Saturation 92.6L, Arterial Blood Gas Vent Mode ac/vc, Arterial Blood Gas Tidal Volume 400, Arterial Blood Gas Respiration Rate 25, Arterial Blood Gas Liter Flow 35, Arterial Blood Gas PEEP 6, Oxygen Delivery Device MECHAN. VENT 02/08/20 12:16: Bedside Glucose (Misc Panel) 180H 02/08/20 14:13: Anion Gap 12, Glomerular Filtration Rate 26.4L, Calcium Level 7.8L, Whole Blood Ionized Calcium 4.3L, Phosphorus Level 5.3H, Magnesium Level 2.3, Total Bilirubin 2.5H, Direct Bilirubin 1.9H, Aspartate Amino Transf (AST/SGOT) 1550H, Alanine Aminotransferase (ALT/SGPT) 978H, Alkaline Phosphatase 462H, Total Protein 4.4L, Albumin 1.7L, Albumin/Globulin Ratio 0.6L 02/08/20 16:09: Bedside Glucose (Misc Panel) 160H CBC/BMP Laboratory Tests 02/07/20 20:46 02/08/20 02:11 02/08/20 07:56 02/08/20 14:13 Microbiology Microbiology 02/07/20 Acid Fast Stain - Final, Resulted 02/07/20 Mycobacterial Culture, Resulted Pending 02/07/20 Fungal Smear, Resulted Pending 02/07/20 Fungal Culture, Resulted Pending 02/07/20 Viral Culture, Resulted Pending 02/07/20 Gram Stain - Final, Resulted 02/07/20 Bronchoalveolar Lavage Culture, Resulted Pending 02/07/20 Gram Stain - Final, Resulted 02/07/20 Bronchoalveolar Lavage Culture, Resulted Pending 02/07/20 Acid Fast Stain - Final, Resulted 02/07/20 Mycobacterial Culture, Resulted Pending 02/05/20 Fungal Smear, Received Pending 02/05/20 Fungal Culture, Received Pending 02/04/20 Malaria Smear ([facility]) - Final, Complete 02/03/20 Acid Fast Stain - Final, Resulted 02/03/20 Mycobacterial Culture, Resulted Pending 02/01/20 Gram Stain - Final, Complete 02/01/20 Sputum Culture - Final, Complete 01/30/20 Gram Stain - Final, Complete 01/30/20 Sputum Culture - Final, Complete 01/30/20 Respiratory Virus Panel (PCR) ([facility]) - Final, Complete GME ATTESTATION GME ATTESTATION My faculty preceptor for this patient encounter was physically present during the encounter and was fully available. All aspects of the patient interview, examination, medical decision making process, and medical care plan development were reviewed and approved by the faculty preceptor. The faculty preceptor is aware and concurs with the plan as stated in the body of this note and will attest to such by his/her cosignature. MORGAN BEACH MD February 08, 2020 18:50 JIM JOYNER MD Feb 14, 2020 21:14
--- NOTE | 2020-02-08 19:26 | CR ---
DATE OF CONSULTATION: 02/06/2020 REASON FOR CONSULTATION: Fever with pulmonary infiltrate, respiratory failure and abnormal liver function tests. HISTORY OF THE PRESENT ILLNESS: Mrs. Lujan is a 69-year-old [place] female who has a past medical history significant for glucose intolerance with HbA1c of 6.1, on no medication, who presented to the hospital with 1 month complaint of fever, chills with increasing shortness of breath. The patient also was having some abdominal discomfort, nausea and vomiting. She denied any chest pain, diarrhea or weight loss. The patient had no recent travel but was in [place] around June. Her was sick around the same time about a month prior to admission but he got better. She has a history of tuberculosis as a child, not sure about her treatment. She denies any other sick contacts. She does not have any pets. She moved to the area from [place] a few years ago because her son works in [employer]. She has no rash, no joint pains. The patient was treated initially with ceftriaxone and Zithromax from 01/29/2020 to 02/02/2020. She was then switched to cefepime and vancomycin. Doxycycline was added as well on 02/03/2020, and she is still on oral doxycycline. On 02/04/2020, voriconazole was added for antifungal coverage due to persistent fever, worsening hypoxia and pulmonary infiltrates. On 02/06/2020, she received Bactrim. Sputum was sent for AFB, fungal smear and culture and cytology, which was negative for Pneumocystis. HIV was negative. She was started on Decadron on 02/05/2020 which helped with her fever but otherwise everything else has remained unchanged. Past medical history : significant for glucose intolerance with a HbA1c of 6.1 in January of 2020, mild leukopenia with white count usually at baseline between 3.7 and 3.9. Primary care provider was Honey Perez at [facility]. Lyme serology done September of 2019 was negative. FAMILY HISTORY: Nonrevealing. SOCIAL HISTORY: She denies any tobacco, alcohol use, or recent travel except for being in [place] in June of 2019. No pets. She has only one son. ALLERGIES: No known drug allergies. REVIEW OF SYSTEMS: The patient does complain of shortness of breath with a mild cough, which is mostly nonproductive. No chest pain, no headache or neck stiffness. No blurry vision. No upper or lower extremity weakness. Mild nausea. LABORATORY; White count was 5.3, hemoglobin 9.6, hematocrit 28.1, platelets 31. Platelets on admission were 118 and have decreased steadily since then. White count on admission was between 3.2 and 4.4, has increased since on steroids. Hemoglobin has dropped since admission from 10.6. Sodium 137, potassium 4, chloride 105, bicarbonate 21, BUN 69, which is significantly higher than this morning at 50 and two days ago at 17 creatinine 1.38, glucose 226, calcium 8.6, bilirubin 2.2, AST 327, ALT 259, alkaline phosphatase 698, LDH 2633, troponin less than 0.02. CRP 22.7, BMP 81, albumin 1, procalcitonin done on 01/28/2020 and 01/29/2020 were both less than 0.2. Blood culture on 01/28/2020 was negative. Respiratory panel was negative. Sputum culture was negative. 01/28/2020 COVID-19 PCR was negative. AFB smear on 02/03/2020 was negative. Culture is pending. Malaria smear was negative. Fungal smear and culture from 02/05/2020 is pending. IMAGING STUDIES: Abdominal ultrasound shows bilateral pleural effusion, cholelithiasis without evidence of cholecystitis. CT chest done on 01/31/[address] angiogram done on 01/28/2020 showed increased patchy alveolar infiltrates of both upper lobes diffusely with mild diffuse interstitial edema, new small bilateral pleural effusions. Other tests that have been done under serology include chlamydia serology, Blastomyces antibody, Coccidioides antibody, CMV IgM, IgG, EBV IgM, IgG, hepatitis panel A, B and C were negative. Mycoplasma IgG 328, IgM less than 770, chlamydia IgA, IgM, IgG less than 1:16, COVID-19 PCR on 01/28/2020 was negative. SARS CoV IgG negative on 02/01/2020. Pneumococcal urinary antigen negative. Fungitell assay pending. MRSA screen PCR pending. QuantiFERON TB Gold is pending. IMPRESSION: This is a 69-year-old female who was admitted with a 1-month history of progressive shortness of breath, fever, nausea, vomiting, and diarrhea. Since hospitalization, she has been febrile until the past 24 hours when she had steroids. She has progressive thrombocytopenia, mild anemia. Leukocyte count has remained on the low normal. The patient has worsening respiratory failure with ground glass opacities and interstitial pattern. The patient has a history of tuberculosis when she was in [place]; the details of which are not available to me and how she was treated. She has worsening liver function tests with hepatitis, anorexia and 6 weeks of a fever. Differential diagnosis include disseminated tuberculosis, disseminated fungal infection, although the patient does not have a history of immunodeficiency, she has a mild hypogammaglobulinemia which was recently diagnosed this admission with an IgG level of 526, IgA, IgM were normal. Rheumatoid factor was negative. The patient is HIV negative. Disseminated viral infection also could present with respiratory issues, such as cytomegalovirus, EBV and therefore PCR testing was added. COVID would have been on the differential, but she has had two COVID PCRs done as well as COVID antibody and, therefore, this is very likely, especially that she had been sick for about a month before admission. PLAN: Suggest obtaining a CT abdomen and pelvis to rule out any intra-abdominal pathology that would suggest a fungal or disseminated tuberculosis. I would obtain three sputum AFB smear and culture. I would add one to the fungal smear that was done yesterday and another from the endotracheal tube as the patient was intubated tonight. May consider obtaining a followup chest CT to follow up on pleural effusion as we need to get some tissue for diagnosis. The best diagnosis for disseminated tuberculosis would be possibility of liver biopsy if her platelets improve with a sensitivity of 91-100%. 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 PLAN: Case has been discussed with Dr. Karen Merida. I will discuss the case again with her tomorrow as we need to get tissue for diagnosis, if cant bronch patient possibly liver versus bone marrow, I will also discussed the case with Hematology/Oncology. PENNY
[2020-02-08 20:07] LABS: IONIZED CALCIUM 4.6 MG/DL (4.5-5.3)
[2020-02-08 20:28] LABS: HEMATOCRIT 24.1 % (36.0-47.0); HEMOGLOBIN 8.7 g/dl (12.0-15.5); MEAN CORPUSCULAR HEMOGLOBIN 31.3 pg (27.0-33.0); MEAN CORPUSCULAR HGB CONC 36.1 g/dl (32.0-36.5); MEAN CORPUSCULAR VOLUME 86.7 fl (80.0-96.0); RED BLOOD COUNT 2.78 10^6/uL (4.00-5.40); WHITE BLOOD COUNT 5.1 10^3/uL (4.0-10.0)
[2020-02-08 20:32] LABS: PLATELET COUNT, AUTOMATED 29 10^3/uL (150-450)
[2020-02-08 20:48] LABS: CALCIUM LEVEL 7.8 MG/DL (8.8-10.2); CREATININE FOR GFR 1.81 MG/DL (0.55-1.30); GLOMERULAR FILTRATION RATE 29.6 (>45); MAGNESIUM LEVEL 2.5 MG/DL (1.8-2.4); PHOSPHORUS LEVEL 4.5 MG/DL (2.5-4.9); POTASSIUM SERUM 4.2 MEQ/L (3.5-5.1)
[2020-02-08] MEDS ORDERED: CALCIUM GLUCONATE 1,000 MG in NS 100 ML IV ONE (22:00)
[2020-02-09] VITALS (114 sets, daily range): BP systolic 74–188; BP diastolic 44–91; O2SAT 97
[2020-02-09] MEDS: HYDROCORTISONE 100 MG/2 ML VIAL (J1720 PER 1) IV SCH ×3 (00:28→16:05)
[2020-02-09] MEDS: HumaLOG INSULIN (NovoLOG) PER UNIT SC SCH ×6 (00:30→21:28)
[2020-02-09] MEDS: fentaNYL CITRATE 1,000 MCG in NS 80 ML IV SCH (02:08)
[2020-02-09 02:17] LABS: IONIZED CALCIUM 4.6 MG/DL (4.5-5.3)
[2020-02-09] MEDS ORDERED: CALCIUM GLUCONATE 1,000 MG, VIAL MATE ADAPTER 1 EACH in NS 100 ML IV ONE ×2 (02:45→11:00)
[2020-02-09 02:50] LABS: CREATININE FOR GFR 1.81 MG/DL (0.55-1.30); GLOMERULAR FILTRATION RATE 29.6 (>45)
[2020-02-09 02:51] LABS: CALCIUM LEVEL 7.2 MG/DL (8.8-10.2); MAGNESIUM LEVEL 2.6 MG/DL (1.8-2.4); PHOSPHORUS LEVEL 3.8 MG/DL (2.5-4.9); POTASSIUM SERUM 4.2 MEQ/L (3.5-5.1)
[2020-02-09 05:39] LABS: ABG BASE EXCESS -6.1 (-2.0-2.0); ABG HCO3 17.2 MEQ/L (22.0-26.0); ABG O2 SATURATION 95.2 % (95.0-99.0); ABG PARTIAL PRESSURE O2 85.7 mmHg (75.0-100.0); ABG STANDARD HCO3 19.4 MEQ/L (22.0-26.0); ABG pH (ARTERIAL) 7.438 UNITS (7.350-7.450)
[2020-02-09] MEDS: propofoL 1,000 MG in IV 1 EA IV SCH ×3 (06:02→17:28)
[2020-02-09] MEDS: VASOPRESSIN INJ 20 UNITS in NS 499 ML IV SCH (07:11)
[2020-02-09 07:26] LABS: IONIZED CALCIUM 4.5 MG/DL (4.5-5.3)
--- NOTE | 2020-02-09 07:34 | REP ---
Clinical: Status post intubation . Comparison: 02/08/2020 . Findings: Endotracheal tube, nasogastric tube, and right IJ line are in satisfactory position. The mediastinum and cardiac silhouette are stable and within normal limits for portable technique. Lung rojo demonstrate bilateral lower lobe opacities and possible layering effusions improved from prior examination. Impression: 1. Lines and tubes in stable satisfactory position. 2. Improved aeration to the bilateral lung rojo. Electronically Signed by Dickson Green MD 02/09/2020 07:26 A
[2020-02-09 08:06] LABS: HEMATOCRIT 23.6 % (36.0-47.0); HEMOGLOBIN 8.7 g/dl (12.0-15.5); MEAN CORPUSCULAR VOLUME 86.8 fl (80.0-96.0); RED BLOOD COUNT 2.72 10^6/uL (4.00-5.40); WHITE BLOOD COUNT 5.2 10^3/uL (4.0-10.0)
[2020-02-09 08:07] LABS: MEAN CORPUSCULAR HGB CONC 36.9 g/dl (32.0-36.5); PLATELET COUNT, AUTOMATED 30 10^3/uL (150-450)
[2020-02-09 08:32] LABS: ATYPICAL LYMPH 1 % (0-5); LYMPHOCYTES 8 % (16-44); MONOCYTES 5 % (0-5); NEUTROPHILS 83 % (28-66); PLATELET ESTIMATE MARKED DECREASE (NORMAL); POLYCHROMASIA 1+; SMUDGE CELLS 2+
[2020-02-09 08:34] LABS: POIKILOCYTOSIS 1+
[2020-02-09 08:40] LABS: ALBUMIN 1.7 GM/DL (3.2-5.2); BILIRUBIN,TOTAL 2.5 MG/DL (0.2-1.0); CALCIUM LEVEL 7.4 MG/DL (8.8-10.2); CREATININE FOR GFR 1.75 MG/DL (0.55-1.30); GLOMERULAR FILTRATION RATE 30.8 (>45); MAGNESIUM LEVEL 2.6 MG/DL (1.8-2.4); PHOSPHORUS LEVEL 3.6 MG/DL (2.5-4.9); POTASSIUM SERUM 4.2 MEQ/L (3.5-5.1)
[2020-02-09] MEDS: PANTOPRAZOLE 40MG VIAL (C9113 PER 1) IV SCH ×2 (09:00→21:29)
[2020-02-09] MEDS: MEROPENEM INJ 1 GM in IV 1 EA IV SCH ×2 (09:00→21:28)
[2020-02-09] MEDS: FLUTICASONE PROP 0.05% NASAL SPRAY 16 GM (FLONASE) NARES SCH (09:00)
[2020-02-09] MEDS: DOXYCYCLINE HYCLATE 100 MG in D5W MINI-BAG PLUS 100 ML IV SCH ×2 (09:00→21:28)
[2020-02-09] MEDS: CHLORHEXIDINE GLUCONATE 0.12 % 15ML UDC (PERIDEX ORAL RINSE) MT SCH ×2 (09:00→21:29)
[2020-02-09] MEDS ORDERED: MORPHINE 2 MG/ML 1ML VIAL (J2270) IV PRN (09:15)
--- NOTE | 2020-02-09 11:37 | IPNPDOC ---
Date Seen The patient was seen on 02/09/20. Progress Note SUBJECTIVE: The patient continues on pressor support and CVVHD. Inflammatory markers have somewhat improved. Liver enzymes are trending down. OBJECTIVE PHYSICAL EXAMINATION: VITAL SIGNS: Please see below. GENERAL APPEARANCE: Laying in bed, appears stated age, no acute distress, calm, cooperative HEENT: EOMI, PERRLA, neck is supple with no thyromegaly or lymphadenopathy RESPIRATORY: Lungs are clear to auscultation bilaterally with no adventitious breath sounds appreciated CARDIOVASCULAR: no JVD, RRR, no murmurs/rubs/gallops, normal S1 and S2 ABDOMEN: +BS, soft, slightly protuberant, no masses/organomegaly EXTREMITIES: no clubbing, cyanosis or edema noted NEUROLOGICAL: unable to perform PSYCHIATRIC: unable to perform Skin: No rashes or ulcers appreciated, warm and well-perfused LN: No significant cervical or inguinal lymphadenopathy LABORATORY DATA, IMAGING STUDIES, MICROBIOLOGY: Please see below. CT CHEST: CT chest performed without IV contrast and compared to a prior study of 01/31/2020. Sagittal and coronal reconstruction images are performed. Endotracheal tube is seen with the tip just above the kendall. Nasogastric tube is seen with sideport in the fundus of the stomach. Right central venous catheter is seen with the tip in the superior vena cava. The heart is slightly enlarged. There is no gross mediastinal or axillary adenopathy. There is no pericardial effusion. There are moderate bilateral pleural effusions. There are diffuse dense infiltrates in both lungs which have increased since the prior study. There are mild diffuse degenerative changes of the spine. IMPRESSION: Increased diffuse bilateral infiltrates, worse in the upper lobes than the lower lobes. Moderate bilateral pleural effusions have increased. Endotracheal tube, nasogastric tube and central venous catheter as above. CT ABDOMEN AND PELVIS WITH ORAL CONTRAST: CT abdomen and pelvis performed with oral contrast. IV contrast was not administered. This somewhat limits the exam. Liver, spleen, adrenals, pancreas and kidneys are grossly unremarkable. There is mild atherosclerotic calcification of the abdominal aorta without aneurysm. No gross adenopathy is seen. No free air is seen. There is no definite bowel wall thickening. There is mild diffuse edema throughout the mesentery which is nonspecific. There is mild abdominal pelvic ascites present. There is no evidence of small bowel obstruction. An IUD is seen within the uterus. A López catheter is seen in a collapsed urinary bladder. A rectal catheter is seen. There is a catheter in the right femoral vein with the tip in the right common iliac vein. Gallbladder is moderately distended and contains multiple gallstones. IMPRESSION: Mild diffuse mesenteric edema and mild diffuse ascites, nonspecific. Gallbladder is moderately distended and contains multiple gallstones. DVT prophylaxis ordered?: TEDS/SCDs ASSESSMENT AND PLAN: This is a 69-year-old female with history of fevers and chills progressively worsening over the past month, and episodic subjective shortness of breath, found to have elevated inflammatory markers, concerning for viral versus bacterial pneumonia. She is COVID-19 negative. PROBLEMS: 1. Fever of unknown origin: concerning for acute viral PNA vs atypical PNA vs reactivated TB vs malignancy -CT chest today concerning for worsening fluid overload Current empiric antibiotic/antifungal treatment: -Atovaquone, Doxycycline, Meropenem, Voriconazole Empiric steroids: -Dexamethasone, Hydrocortisone -Pending BAL results and AFB -Previous Sputum AFB negative for growth x2 -Blood cultures no growth to date -Inflammatory markers (Ferritin, LDH, CRP) increasing. Will continue to trend. Concerning for HLH -Nephrology consulted for acute renal failure and hyperkalemia. On CVVH. s/p bicarb/calcium gluconate -Infectious disease consulted. Appreciate recommendations 2. Possible PNA -Empiric treatment as listed above -Pro calcitonin found to be 0.17, therefore less likely bacterial infection -Respiratory panel found to be negative -Mycoplasma pneumonia IgG found to be elevated. May suggest history of infection, but not necessarily current infection -Quant Gold test, PPD, Legionella, EBV, CMV, Scleroderma ordered to rule out atypical pathology -Continue Tylenol, ibuprofen for fevers -MDI resp treatment as needed 3. Tranaminitis: -Liver function worsening. Will continue to monitor 4. Thrombocytopenia: likely 2/2 infection vs antibiotics -Medical Oncology consulted. Appreciate recommendations DISPOSITION: pending clinical improvement. Attending attestation: I evaluated and examined the patient in person; I discussed the care with Resident in detail and agree with the plan above. VS, I&O, 24H, Fishbone Vital Signs/I&O Vital Signs Date Time Temp Pulse Resp B/P (MAP) Pulse Ox O2 Delivery O2 Flow Rate FiO2 02/09/20 09:45 97.5 61 24 93/54 (67) 97 Ventilator 35 02/06/20 20:00 35.0 I&O- Last 24 Hours up to 6 AM 02/09/20 06:00 Intake Total 4432.2 ml Output Total 3153 ml Balance 1279.2 ml Laboratory Data 24H LABS Laboratory Tests 2 02/08/20 12:16: Bedside Glucose (Misc Panel) 180H 02/08/20 14:13: Anion Gap 12, Glomerular Filtration Rate 26.4L, Calcium Level 7.8L, Whole Blood Ionized Calcium 4.3L, Phosphorus Level 5.3H, Magnesium Level 2.3, Total Bilirubin 2.5H, Direct Bilirubin 1.9H, Aspartate Amino Transf (AST/SGOT) 1550H, Alanine Aminotransferase (ALT/SGPT) 978H, Alkaline Phosphatase 462H, Total Protein 4.4L, Albumin 1.7L, Albumin/Globulin Ratio 0.6L 02/08/20 16:09: Bedside Glucose (Misc Panel) 160H 02/08/20 19:50: Anion Gap 12, Glomerular Filtration Rate 29.6L, Calcium Level 7.8L, Whole Blood Ionized Calcium 4.6, Phosphorus Level 4.5, Magnesium Level 2.5H, Nucleated Red Blood Cells % (auto) 16.0H, Activated Partial Thromboplast Time 28.1 02/08/20 19:57: Bedside Glucose (Misc Panel) 211H 02/09/20 00:24: Bedside Glucose (Misc Panel) 226H 02/09/20 01:59: Anion Gap 7L, Glomerular Filtration Rate 29.6L, Calcium Level 7.2L, Whole Blood Ionized Calcium 4.6, Phosphorus Level 3.8, Magnesium Level 2.6H 02/09/20 02:00: 02/09/20 03:11: Bedside Glucose (Misc Panel) 220H 02/09/20 05:25: Blood Gas Bicarbonate Standard 19.4L, Arterial Blood pH 7.438, Arterial Blood Partial Pressure CO2 26.0L, Arterial Blood Partial Pressure O2 85.7, Arterial Blood Total CO2 18.0L, Arterial Blood HCO3 17.2L, Arterial Blood Base Excess -6. 1L, Arterial Blood Oxygen Saturation 95.2 02/09/20 07:16: Neutrophils (%) (Auto) , Nucleated Red Blood Cells % (auto) 34.2H, Neutrophils 83H, Band Neutrophils 3, Lymphocytes (Manual) 8L, Monocytes (Manual) 5, Atypical Lymphocytes 1, Polychromasia 1+, Poikilocytosis 1+, Anisocytosis , Smudge Cells 2+, Platelet Estimate MARKED DECREASE, Immature Platelet Fraction 19.5H, Activated Partial Thromboplast Time 28.5, Anion Gap 8, Glomerular Filtration Rate 30.8L, Calcium Level 7.4L, Whole Blood Ionized Calcium 4.5, Phosphorus Level 3.6, Magnesium Level 2.6H, Total Bilirubin 2.5H, Aspartate Amino Transf (AST/SGOT) 644H, Alanine Aminotransferase (ALT/SGPT) 723H, Alkaline Phosphatase 424H, Lactate Dehydrogenase 2159H, Total Creatine Kinase 22L, Total Protein 4.0L, Albumin 1.7L, Albumin/Globulin Ratio 0.7L, Triglycerides Level 865H, Cholesterol Level 138 02/09/20 08:23: Bedside Glucose (Misc Panel) 187H CBC/BMP Laboratory Tests 02/08/20 14:13 02/08/20 19:50 02/09/20 01:59 02/09/20 07:16 Microbiology Microbiology 02/07/20 Acid Fast Stain - Final, Resulted 02/07/20 Mycobacterial Culture, Resulted Pending 02/07/20 Fungal Smear, Resulted Pending 02/07/20 Fungal Culture, Resulted Pending 02/07/20 Viral Culture, Resulted Pending 02/07/20 Gram Stain - Final, Complete 02/07/20 Bronchoalveolar Lavage Culture - Final, Complete Pseudomonas Aeruginosa 02/07/20 Gram Stain - Final, Complete 02/07/20 Bronchoalveolar Lavage Culture - Final, Complete Pseudomonas Aeruginosa 02/07/20 Acid Fast Stain - Final, Resulted 02/07/20 Mycobacterial Culture, Resulted Pending 02/05/20 Fungal Smear, Received Pending 02/05/20 Fungal Culture, Received Pending 02/04/20 Malaria Smear ([facility]) - Final, Complete 02/03/20 Acid Fast Stain - Final, Resulted 02/03/20 Mycobacterial Culture, Resulted Pending 02/01/20 Gram Stain - Final, Complete 02/01/20 Sputum Culture - Final, Complete 01/30/20 Gram Stain - Final, Complete 01/30/20 Sputum Culture - Final, Complete 01/30/20 Respiratory Virus Panel (PCR) ([facility]) - Final, Complete GME ATTESTATION GME ATTESTATION My faculty preceptor for this patient encounter was physically present during the encounter and was fully available. All aspects of the patient interview, examination, medical decision making process, and medical care plan development were reviewed and approved by the faculty preceptor. The faculty preceptor is aware and concurs with the plan as stated in the body of this note and will attest to such by his/her cosignature. MORGAN BEACH MD February 09, 2020 11:37 JIM JOYNER MD Feb 14, 2020 21:17
--- NOTE | 2020-02-09 12:58 | IPNPDOC ---
Date Seen The patient was seen on 02/09/20. Progress Note Hematology Interval history Patient remains critically ill. Multiorgan failure continues Patient off pressors Patient now off paralytics Breathing on iron CT shows ascites. Patient's +4 L Transaminitis continues Cytologies were negative for malignancy Patient had Covid-19 testing 2 which was negative and antibody testing which was negative A pseudomonas aeruginosa pneumonia was found. Pancytopenia continues with exacerbation of thrombocytopenia from CVVHD No longer having hyperpyrexia One episode of coffee ground emesis. Currently on protocol inhibition Personal review of peripheral smear shows no evidence of schistocytes. There is no evidence of thrombotic thrombocytopenic purpura as a cause of her symptoms and problems There is no evidence for an underlying hematologic malignancy as cause No current role for bone marrow biopsy and aspiration testing ASSESSMENT Pancytopenia due to myelosuppression from active systemic illness. Clinical picture is consistent with some type of a viral infection which is likely the initiator causing a secondary inflammatory process and now with secondary infections and multiorgan failure. Covid-19 negative x 2. Antibody negative. 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 RECOMMENDATIONS Blood counts should improve once we have a handle on and treatment of primary underlying infectious processes Continue transfusion support as indicated We'll continue to follow along with you VS, I&O, 24H, Becky Vital Signs/I&O Vital Signs Date Time Temp Pulse Resp B/P (MAP) Pulse Ox O2 Delivery O2 Flow Rate FiO2 02/09/20 12:15 98.1 66 17 98/59 (72) 96 Ventilator 35 02/06/20 20:00 35.0 I&O- Last 24 Hours up to 6 AM 02/09/20 06:00 Intake Total 4432.2 ml Output Total 3153 ml Balance 1279.2 ml Laboratory Data 24H LABS Laboratory Tests 2 02/08/20 14:13: Anion Gap 12, Glomerular Filtration Rate 26.4L, Calcium Level 7.8L, Whole Blood Ionized Calcium 4.3L, Phosphorus Level 5.3H, Magnesium Level 2.3, Total Biliru bin 2.5H, Direct Bilirubin 1.9H, Aspartate Amino Transf (AST/SGOT) 1550H, Alanine Aminotransferase (ALT/SGPT) 978H, Alkaline Phosphatase 462H, Total Protein 4.4L, Albumin 1.7L, Albumin/Globulin Ratio 0.6L 02/08/20 16:09: Bedside Glucose (Misc Panel) 160H 02/08/20 19:50: Anion Gap 12, Glomerular Filtration Rate 29.6L, Calcium Level 7.8L, Whole Blood Ionized Calcium 4.6, Phosphorus Level 4.5, Magnesium Level 2.5H, Nucleated Red Blood Cells % (auto) 16.0H, Activated Partial Thromboplast Time 28.1 02/08/20 19:57: Bedside Glucose (Misc Panel) 211H 02/09/20 00:24: Bedside Glucose (Misc Panel) 226H 02/09/20 01:59: Anion Gap 7L, Glomerular Filtration Rate 29.6L, Calcium Level 7.2L, Whole Blood Ionized Calcium 4.6, Phosphorus Level 3.8, Magnesium Level 2.6H 02/09/20 02:00: 02/09/20 03:11: Bedside Glucose (Misc Panel) 220H 02/09/20 05:25: Blood Gas Bicarbonate Standard 19.4L, Arterial Blood pH 7.438, Arterial Blood Partial Pressure CO2 26.0L, Arterial Blood Partial Pressure O2 85.7, Arterial Blood Total CO2 18.0L, Arterial Blood HCO3 17.2L, Arterial Blood Base Excess - 6.1L, Arterial Blood Oxygen Saturation 95.2 02/09/20 07:16: Neutrophils (%) (Auto) , Nucleated Red Blood Cells % (auto) 34.2H, Neutrophils 83H, Band Neutrophils 3, Lymphocytes (Manual) 8L, Monocytes (Manual) 5, Atypical Lymphocytes 1, Polychromasia 1+, Poikilocytosis 1+, Anisocytosis , Smudge Cells 2+, Platelet Estimate MARKED DECREASE, Immature Platelet Fraction 19.5H, Activated Partial Thromboplast Time 28.5, Anion Gap 8, Glomerular Filtration Rate 30.8L, Calcium Level 7.4L, Whole Blood Ionized Calcium 4.5, Phosphorus Level 3.6, Magnesium Level 2.6H, Total Bilirubin 2.5H, Aspartate Amino Transf (AST/SGOT) 644H, Alanine Aminotransferase (ALT/SGPT) 723H, Alkaline Phosphatase 424H, Lactate Dehydrogenase 2159H, Total Creatine Kinase 22L, Total Protein 4 .0L, Albumin 1.7L, Albumin/Globulin Ratio 0.7L, Triglycerides Level 865H, Cholesterol Level 138 5/29/20 08:23: Bedside Glucose (Misc Panel) 187H CBC/BMP Laboratory Tests 02/08/20 14:13 02/08/20 19:50 02/09/20 01:59 02/09/20 07:16 Microbiology Microbiology 02/07/20 Acid Fast Stain - Final, Resulted 02/07/20 Mycobacterial Culture, Resulted Pending 02/07/20 Fungal Smear, Resulted Pending 02/07/20 Fungal Culture, Resulted Pending 02/07/20 Viral Culture, Resulted Pending 02/07/20 Gram Stain - Final, Complete 02/07/20 Bronchoalveolar Lavage Culture - Final, Complete Pseudomonas Aeruginosa 02/07/20 Gram Stain - Final, Complete 02/07/20 Bronchoalveolar Lavage Culture - Final, Complete Pseudomonas Aeruginosa 02/07/20 Acid Fast Stain - Final, Resulted 02/07/20 Mycobacterial Culture, Resulted Pending 02/05/20 Fungal Smear, Received Pending 02/05/20 Fungal Culture, Received Pending 02/04/20 Malaria Smear ([facility]) - Final, Complete 02/03/20 Acid Fast Stain - Final, Resulted 02/03/20 Mycobacterial Culture, Resulted Pending 02/01/20 Gram Stain - Final, Complete 02/01/20 Sputum Culture - Final, Complete 01/30/20 Gram Stain - Final, Complete 01/30/20 Sputum Culture - Final, Complete 01/30/20 Respiratory Virus Panel (PCR) ([facility]) - Final, Complete JOSEPH CHAUDHARI MD February 09, 2020 12:58
[2020-02-09] MEDS: ALBUTEROL SULFATE 2.5 MG/0.5 ML INH NEB SOLN NEB SCH ×2 (14:02→20:27)
[2020-02-09 14:20] LABS: IONIZED CALCIUM 4.7 MG/DL (4.5-5.3)
[2020-02-09 14:48] LABS: CALCIUM LEVEL 7.6 MG/DL (8.8-10.2); CREATININE FOR GFR 1.74 MG/DL (0.55-1.30); MAGNESIUM LEVEL 2.8 MG/DL (1.8-2.4); PHOSPHORUS LEVEL 2.7 MG/DL (2.5-4.9); POTASSIUM SERUM 4.1 MEQ/L (3.5-5.1)
[2020-02-09] MEDS: NOREPINEPHRINE BITARTRATE 16 MG in D5W 484 ML IV SCH (17:28)
[2020-02-09 20:11] LABS: IONIZED CALCIUM 4.4 MG/DL (4.5-5.3)
[2020-02-09 20:15] LABS: HEMATOCRIT 26.9 % (36.0-47.0); HEMOGLOBIN 9.7 g/dl (12.0-15.5); MEAN CORPUSCULAR HEMOGLOBIN 31.3 pg (27.0-33.0); MEAN CORPUSCULAR HGB CONC 36.1 g/dl (32.0-36.5); MEAN CORPUSCULAR VOLUME 86.8 fl (80.0-96.0); WHITE BLOOD COUNT 9.2 10^3/uL (4.0-10.0)
[2020-02-09 20:17] LABS: PLATELET COUNT, AUTOMATED 36 10^3/uL (150-450)
[2020-02-09 20:48] LABS: CALCIUM LEVEL 7.2 MG/DL (8.8-10.2); CREATININE FOR GFR 1.81 MG/DL (0.55-1.30); GLOMERULAR FILTRATION RATE 29.6 (>45); MAGNESIUM LEVEL 2.6 MG/DL (1.8-2.4); PHOSPHORUS LEVEL 2.8 MG/DL (2.5-4.9); POTASSIUM SERUM 4.2 MEQ/L (3.5-5.1)
[2020-02-09] MEDS ORDERED: CALCIUM GLUCONATE 1,000 MG in NS 100 ML IV ONE (21:00)
[2020-02-09 23:07] LABS: BLASTOMYCES ANTIBODY LEVEL Negative (Neg:<1:1); CRYPTOCOCCUS ANTIGEN SER Negative (Negative)
[2020-02-10] VITALS (99 sets, daily range): BP systolic 80–174; BP diastolic 44–97; O2SAT 94–98
[2020-02-10] MEDS: HYDROCORTISONE 100 MG/2 ML VIAL (J1720 PER 1) IV SCH ×3 (00:11→16:03)
[2020-02-10] MEDS: propofoL 1,000 MG in IV 1 EA IV SCH ×2 (00:11→13:37)
[2020-02-10 01:56] LABS: IONIZED CALCIUM 4.4 MG/DL (4.5-5.3)
[2020-02-10] MEDS: ALBUTEROL SULFATE 2.5 MG/0.5 ML INH NEB SOLN NEB SCH ×4 (02:09→20:31)
[2020-02-10 02:25] LABS: CALCIUM LEVEL 7.4 MG/DL (8.8-10.2); CREATININE FOR GFR 1.88 MG/DL (0.55-1.30); GLOMERULAR FILTRATION RATE 28.3 (>45); MAGNESIUM LEVEL 2.6 MG/DL (1.8-2.4); PHOSPHORUS LEVEL 2.8 MG/DL (2.5-4.9); POTASSIUM SERUM 4.3 MEQ/L (3.5-5.1)
[2020-02-10] MEDS ORDERED: CALCIUM GLUCONATE 1,000 MG, VIAL MATE ADAPTER 1 EACH in NS 100 ML IV ONE ×2 (03:00→21:45)
[2020-02-10] MEDS: HumaLOG INSULIN (NovoLOG) PER UNIT SC SCH ×5 (04:59→17:38)
[2020-02-10 05:56] LABS: ABG BASE EXCESS -4.1 (-2.0-2.0); ABG O2 SATURATION 95.7 % (95.0-99.0); ABG PARTIAL PRESSURE CO2 20.9 mmHg (35.0-45.0); ABG PARTIAL PRESSURE O2 84.4 mmHg (75.0-100.0); ABG TOTAL CO2 17.7 MEQ/L (23.0-31.0); ABG pH (ARTERIAL) 7.529 UNITS (7.350-7.450)
[2020-02-10 06:29] LABS: HEMATOCRIT 28.7 % (36.0-47.0); HEMOGLOBIN 10.3 g/dl (12.0-15.5); MEAN CORPUSCULAR HEMOGLOBIN 31.1 pg (27.0-33.0); MEAN CORPUSCULAR HGB CONC 35.9 g/dl (32.0-36.5); MEAN CORPUSCULAR VOLUME 86.7 fl (80.0-96.0); RED BLOOD COUNT 3.31 10^6/uL (4.00-5.40); WHITE BLOOD COUNT 9.4 10^3/uL (4.0-10.0)
[2020-02-10 06:39] LABS: PLATELET COUNT, AUTOMATED 35 10^3/uL (150-450)
[2020-02-10 07:06] LABS: ALBUMIN 1.8 GM/DL (3.2-5.2); BILIRUBIN,TOTAL 3.6 MG/DL (0.2-1.0); CALCIUM LEVEL 7.7 MG/DL (8.8-10.2); CREATININE FOR GFR 1.91 MG/DL (0.55-1.30); GLOMERULAR FILTRATION RATE 27.8 (>45); PHOSPHORUS LEVEL 2.9 MG/DL (2.5-4.9); POTASSIUM SERUM 4.5 MEQ/L (3.5-5.1); TOTAL PROTEIN 5.2 GM/DL (6.4-8.2)
[2020-02-10 07:32] LABS: LYMPHOCYTES 7 % (16-44); MYELOCYTES 3 % (0-0); NEUTROPHILS 87 % (28-66)
[2020-02-10 07:34] LABS: PLATELET ESTIMATE MARKED DECREASE (NORMAL)
[2020-02-10 07:35] LABS: ANISOCYTOSIS 1+; POLYCHROMASIA 1+
[2020-02-10 08:23] LABS: IONIZED CALCIUM 4.4 MG/DL (4.5-5.3)
[2020-02-10 08:29] LABS: HEMATOCRIT 29.2 % (36.0-47.0); HEMOGLOBIN 10.7 g/dl (12.0-15.5); MEAN CORPUSCULAR HEMOGLOBIN 31.9 pg (27.0-33.0); MEAN CORPUSCULAR VOLUME 87.2 fl (80.0-96.0); RED BLOOD COUNT 3.35 10^6/uL (4.00-5.40); WHITE BLOOD COUNT 9.9 10^3/uL (4.0-10.0)
[2020-02-10 08:38] LABS: MEAN CORPUSCULAR HGB CONC 36.6 g/dl (32.0-36.5); PLATELET COUNT, AUTOMATED 37 10^3/uL (150-450)
[2020-02-10] MEDS: MIDAZOLAM INJ 2MG/2ML VIAL (J2250 PER 1MG) IV PRN ×4 (09:00→20:52)
[2020-02-10 09:10] LABS: CALCIUM LEVEL 7.7 MG/DL (8.8-10.2); CREATININE FOR GFR 1.93 MG/DL (0.55-1.30); GLOMERULAR FILTRATION RATE 27.5 (>45); MAGNESIUM LEVEL 2.7 MG/DL (1.8-2.4); PHOSPHORUS LEVEL 2.6 MG/DL (2.5-4.9); POTASSIUM SERUM 4.5 MEQ/L (3.5-5.1)
[2020-02-10] MEDS: CHLORHEXIDINE GLUCONATE 0.12 % 15ML UDC (PERIDEX ORAL RINSE) MT SCH ×2 (09:33→22:24)
[2020-02-10] MEDS: PANTOPRAZOLE 40MG VIAL (C9113 PER 1) IV SCH ×2 (09:33→22:28)
[2020-02-10] MEDS: DOXYCYCLINE HYCLATE 100 MG in D5W MINI-BAG PLUS 100 ML IV SCH ×2 (09:33→22:25)
[2020-02-10] MEDS: MEROPENEM INJ 1 GM in IV 1 EA IV SCH ×2 (09:33→22:28)
[2020-02-10] MEDS: CALCIUM GLUCONATE 1,000 MG in D5W MINI-BAG PLUS 100 ML IV SCH ×2 (09:55→11:32)
--- NOTE | 2020-02-10 13:35 | IPNPDOC ---
Date Seen The patient was seen on 02/10/20. Progress Note SUBJECTIVE: The patient was found to have low grade fever overnight. She has originally been switched to SIMV ventilator setting but is now on PRVC. She was found to be tachycardic in the 120s and somewhat hypotensive this morning, therefore levophed was restarted. Her HR is coming down now and she is afebrile this morning. Inflammatory markers, including liver enzymes, are improving. OBJECTIVE PHYSICAL EXAMINATION: VITAL SIGNS: Please see below. GENERAL APPEARANCE: Laying in bed, appears stated age, no acute distress, calm, cooperative HEENT: EOMI, PERRLA, neck is supple with no thyromegaly or lymphadenopathy RESPIRATORY: ventilated breath sounds, clear CARDIOVASCULAR: no JVD, RRR, no murmurs/rubs/gallops, normal S1 and S2 ABDOMEN: +BS, soft, slightly protuberant, no masses/organomegaly EXTREMITIES: edema is noted in hands and feet bilaterally. NEUROLOGICAL: unable to perform PSYCHIATRIC: unable to perform Skin: No rashes or ulcers appreciated, warm and well-perfused LN: No significant cervical or inguinal lymphadenopathy LABORATORY DATA, IMAGING STUDIES, MICROBIOLOGY: Please see below. DVT prophylaxis ordered?: TEDS/SCDs ASSESSMENT AND PLAN: This is a 69-year-old female with history of fevers and chills progressively worsening over the past month, and episodic subjective shortness of breath, found to have elevated inflammatory markers, concerning for viral versus bacterial pneumonia. She is COVID-19 negative. PROBLEMS: 1. Fever of unknown origin: concerning for acute viral PNA vs atypical PNA vs reactivated TB vs malignancy -CT chest today concerning for worsening fluid overload Current empiric antibiotic/antifungal treatment: -Continue Doxycycline, Meropenem -Continue empiric Hydrocortisone -BAL samples grew Pseudomonas Aeruginosa -Previous Sputum AFB negative for growth x2 -Blood cultures no growth to date -Inflammatory markers (Ferritin, LDH, CRP) decreasing. Will continue to trend -Nephrology consulted for CVVHD. Appreciate -Infectious disease consulted. Appreciate recommendations 2. Possible PNA -Empiric treatment as listed above -Pro calcitonin found to be 0.17, therefore less likely bacterial infection -Respiratory panel found to be negative -Mycoplasma pneumonia IgG found to be elevated. May suggest history of infection, but not necessarily current infection -Quant Gold test, PPD, Legionella, EBV, CMV, Scleroderma ordered to rule out atypical pathology -Continue Tylenol, ibuprofen for fevers -MDI resp treatment as needed 3. Tranaminitis: -Liver function worsening. Will continue to monitor 4. Thrombocytopenia: likely 2/2 infection vs antibiotics -Medical Oncology consulted. Appreciate recommendations DISPOSITION: pending clinical improvement. Attending attestation: I evaluated and examined the patient in person; I discussed the care with Resident in detail and agree with the plan above. VS, I&O, 24H, Fishbone Vital Signs/I&O Vital Signs Date Time Temp Pulse Resp B/P (MAP) Pulse Ox O2 Delivery O2 Flow Rate FiO2 02/10/20 13:00 98 135/64 (87) 96 Ventilator 35 02/10/20 12:45 98.6 26 02/06/20 20:00 35.0 I&O- Last 24 Hours up to 6 AM 02/10/20 06:00 Intake Total 1956.7 ml Output Total 2059 ml Balance -102.3 ml Laboratory Data 24H LABS Laboratory Tests 2 02/09/20 14:10: Anion Gap 10, Glomerular Filtration Rate 31.0L, Calcium Level 7.6L, Whole Blood Ionized Calcium 4.7, Phosphorus Level 2.7#, Magnesium Level 2.8H 02/09/20 15:54: Bedside Glucose (Misc Panel) 128H 02/09/20 19:58: Anion Gap 12, Glomerular Filtration Rate 29.6L, Calcium Level 7.2L, Whole Blood Ionized Calcium 4.4L, Phosphorus Level 2.8, Magnesium Level 2.6H, Nucleated Red Blood Cells % (auto) 51.8H, Activated Partial Thromboplast Time 29.1 02/10/20 00:06: Bedside Glucose (Misc Panel) 102 02/10/20 01:46: Anion Gap 12, Glomerular Filtration Rate 28.3L, Calcium Level 7.4L, Whole Blood Ionized Calcium 4.4L, Phosphorus Level 2.8, Magnesium Level 2.6H 02/10/20 04:44: Bedside Glucose (Misc Panel) 141H 02/10/20 05:41: Blood Gas Bicarbonate Standard 21.0L, Arterial Blood pH 7.529H, Arterial Blood Partial Pressure CO2 20.9L, Arterial Blood Partial Pressure O2 84.4, Arterial Blood Total CO2 17.7L, Arterial Blood HCO3 17.0L, Arterial Blood Base Excess - 4.1L, Arterial Blood Oxygen Saturation 95.7 5/30/20 05:51: Anion Gap 13, Glomerular Filtration Rate 27.8L, Calcium Level 7.7L, Phosphorus Level 2.9, Immature Granulocyte % (Auto) , Neutrophils (%) (Auto) , Nucleated Red Blood Cells % (auto) 67.1H, Neutrophils 87H, Band Neutrophils 3, Lymphocytes (Manual) 7L, Myelocytes 3H, Polychromasia 1+, Basophilic Stippling 1+, Anisocyt osis 1+, Platelet Estimate MARKED DECREASE, Total Bilirubin 3.6H, Aspartate Amino Transf (AST/SGOT) 459H, Alanine Aminotransferase (ALT/SGPT) 615H, Alkaline Phosphatase 815H, Lactate Dehydrogenase 2638H, Total Creatine Kinase 49#, Total Protein 5.2#L, Albumin 1.8L, Albumin/Globulin Ratio 0.5L, Triglycerides Level 854H, Cholesterol Level 143 02/10/20 07:59: Nucleated Red Blood Cells % (auto) 73.4H, Immature Platelet Fraction 21.7H, Activated Partial Thromboplast Time 28.1, Anion Gap 12, Glomerular Filtration Rate 27.5L, Calcium Level 7.7L, Whole Blood Ionized Calcium 4.4L, Phosphorus Level 2.6, Magnesium Level 2.7H 02/10/20 08:27: Bedside Glucose (Misc Panel) 134H 02/10/20 11:18: Bedside Glucose (Misc Panel) 112 CBC/BMP Laboratory Tests 02/09/20 14:10 02/09/20 19:58 02/10/20 01:46 02/10/20 05:51 02/10/20 07:59 Microbiology Microbiology 02/09/20 Legionella Culture, Received Pending 02/07/20 Acid Fast Stain - Final, Resulted 02/07/20 Mycobacterial Culture, Resulted Pending 02/07/20 Fungal Smear, Resulted Pending 02/07/20 Fungal Culture, Resulted Pending 02/07/20 Viral Culture, Resulted Pending 02/07/20 Gram Stain - Final, Complete 02/07/20 Bronchoalveolar Lavage Culture - Final, Complete Pseudomonas Aeruginosa 02/07/20 Gram Stain - Final, Complete 02/07/20 Bronchoalveolar Lavage Culture - Final, Complete Pseudomonas Aeruginosa 02/07/20 Acid Fast Stain - Final, Resulted 02/07/20 Mycobacterial Culture, Resulted Pending 02/05/20 Fungal Smear, Received Pending 02/05/20 Fungal Culture, Received Pending 02/04/20 Malaria Smear ([facility]) - Final, Complete 02/03/20 Acid Fast Stain - Final, Resulted 02/03/20 Mycobacterial Culture, Resulted Pending 02/01/20 Gram Stain - Final, Complete 02/01/20 Sputum Culture - Final, Complete GME ATTESTATION GME ATTESTATION My faculty preceptor for this patient encounter was physically present during the encounter and was fully available. All aspects of the patient interview, examination, medical decision making process, and medical care plan development were reviewed and approved by the faculty preceptor. The faculty preceptor is aware and concurs with the plan as stated in the body of this note and will attest to such by his/her cosignature. MORGAN BEACH MD February 10, 2020 13:35 JIM JOYNER MD Feb 15, 2020 21:44
--- NOTE | 2020-02-10 13:54 | REP ---
CHEST, SINGLE VIEW: Single view of the chest is performed. COMPARISON: 02/09/2020 as well as other prior exams. The bilateral diffuse parenchymal opacities are gradually improving. Heart is not enlarged. Mediastinal silhouette is unchanged. Right central venous catheter is again seen with the tip in the superior vena cava. Endotracheal tube is unchanged in position with the tip just below the level of the clavicles. However, the nasogastric tube demonstrates sideport in the distal esophagus. This should be advanced at least 10 cm. Electronically Signed by Tacho Lu MD 02/10/2020 09:45 P
[2020-02-10 14:06] LABS: IONIZED CALCIUM 4.6 MG/DL (4.5-5.3)
--- NOTE | 2020-02-10 14:09 | CCN ---
DATE OF SERVICE: 02/09/2020 The patient is seen in the intensive care unit intubated, mechanically ventilated, critically ill. This is hospital day #11, endotracheal intubation and mechanical ventilation day #2. Through the night her pressors have been weaned low, but blood pressure remains labile. At bedside, her temperature is 96.8, maximal temperature for the past 24 hours 98, pulse rate 56, respirations 20 over 20 delivered, blood pressure 115/66, mean arterial pressure 82. Intake and output for the past 24 hours: 4673 and 2053 out. Since midnight, 923 in, 1307 out. Central venous pressure now measures 14. There has been little out the nasogastric (NG) tube. At bedside she is ill appearing. Her oral mucosa are pink. There is a #7.5 endotracheal tube at 23 cm. Neck is supple without meningismus. Jugular veins are minimally distended. The carotid upstroke is brisk without bruit. Heart sounds are regular without appreciable murmur. Breath sounds are coarse and symmetric bilaterally. Abdomen is soft. There are bowel sounds, albeit hypoactive. No palpable mass or organomegaly. The extremities show boggy edema. Pulses are present but somewhat difficult. Intravenous (IV) access sites are clean. There is a central venous catheter in the right internal jugular vein. Site is clean and without induration. DIAGNOSTIC STUDIES: Her sodium is 134, potassium 4.2, chloride 103, CO2 of 23, BUN 53, creatinine is down to 1.75, glucose 236. Her calcium is 7.4, phosphorus 3.6, magnesium 2.6. Bilirubin 2.5, AST is down to 644. ALT is down to 723. Her alkaline phosphatase is down somewhat to 424, LDH is down significantly to 2159. CPK is only 22. Protein is 4. Albumin is 1.7. Triglycerides are 865. White cell count remains essentially normal at 5.2. Differential white cell count showed 83% neutrophils, down from 96 yesterday, and 3 band cells. Hemoglobin is stable at 8.7. Hematocrits 23.6. Platelet count is 30, essentially stable over the past 48 hours. Comments on the CBC indicate immature platelets present. An arterial blood gas this morning shows a pH of 7.43, pCO2 of 26, pO2 of 85, this on assist-control ventilation. Tidal volume of 400, rate of 20, positive end-expiratory pressure (PEEP) of 6, FiO2 0.4. MEDICATIONS REVIEW: - The patient is receiving doxycycline 100 mg every 2 hours. This is day #2. - meropenem 1 gram every 12 hours, day #2 - cortisone 50 mg every 8 hours, day #2 - albuterol via metered-dose inhaler as needed - insulin coverage for blood sugars Drips include propofol, Levophed, fentanyl, vasopressin. Versed is as needed, and there is total parenteral nutrition (TPN) running. IMAGING STUDIES REVIEW: I have looked at her chest x-ray this morning. In comparison to yesterday's image, there is little change. There is some hazy infiltrate the left side slightly greater than the right. Microbiology review: Bronchoalveolar lavage specimens from bronchoscopy on February 06 in the Gram stain showed moderate white cells and a few Pseudomonas areugenosa. Second specimen from the right upper lobe showed a few white blood cells. No organisms, but grew few pseudomonads. The primary problem requiring critical attention is acute hypoxic respiratory failure. Based on arterial blood gases, we will change her mode to IMV and decrease the rate. Will also lighten her sedation-eliminating narcotic drip at this point and reducing the propofol to allow spontaneous respiratory efforts. Will follow saturations and end-tidal CO2. Pneumonia. Atypical titers are pending. She is on doxycycline and broad-spectrum antibiotic therapy with meropenem. It would be difficult to explain her condition based on Pseudomonas pneumonia as a sole cause. Nonetheless, she is on meropenem, which should be sufficient coverage. Acute kidney failure. Continuous renal replacement therapy (CRRT) has been ongoing for the past 24 hours with slow removal of fluid, and we are able to achieve a negative fluid balance. Septic shock. Pressors are being weaned. Blood pressure became somewhat volatile. I will ask that the vasopressin be discontinued, and we will wean with Levophed exclusively. Nutritional support. As there are bowel sounds and little is coming out the NG tube, we will begin tube feedings. Thrombocytopenia. Platelet count is low but stable, and there is no active bleeding. Hemoglobin has also been stable. Will continue close monitoring. Deep vein thrombosis (DVT) prophylaxis is being addressed with sequential hose. Ulcer prophylaxis is being addressed with fingerstick blood sugars and coverage. Will await her response to tube feedings. Ulcer prophylaxis is being addressed with Protonix. I have updated the intensive care unit (ICU) team on the care plan for the day. One hour and 37 minutes was spent in the provision of bedside critical care and coordination.
[2020-02-10 14:28] LABS: CALCIUM LEVEL 7.9 MG/DL (8.8-10.2); CREATININE FOR GFR 1.91 MG/DL (0.55-1.30); GLOMERULAR FILTRATION RATE 27.8 (>45); MAGNESIUM LEVEL 2.5 MG/DL (1.8-2.4); PHOSPHORUS LEVEL 2.8 MG/DL (2.5-4.9); POTASSIUM SERUM 4.6 MEQ/L (3.5-5.1)
--- NOTE | 2020-02-10 15:32 | IPN ---
DATE: 02/09/2020 SUBJECTIVE: The patient was seen and examined at the bedside today morning in the intensive care unit (ICU). Last 24-hour events were noted. She continues to be on continuous veno-venous hemodiafiltration (CVVHDF). She is still slowly coming off the pressors. Vasopressin has been weaned off. She is currently on Levophed, requiring 2 mcg. We were able to remove some fluid according to the mean arterial pressure (MAP) parameters with CVVHDF, and since yesterday she only has about 400 mL positive fluid balance. The patient continues to be oliguric. She was started on total parenteral nutrition (TPN) yesterday. All the cultures are negative so far. The patient is unable to provide review of systems, because she continues to be intubated and sedated and currently requiring 35% of FiO2 on the ventilator. OBJECTIVE: Vital signs: Temperature is 98.1 degrees Fahrenheit, blood pressure 98/59, pulse is 66, respiratory rate of 17, saturating 96% on the ventilator with 35% FiO2. Intake and output: Urine output recorded is only 28 mL since overnight. Continuous renal replacement therapy (CRRT) ultrafiltration is 1.5 liters. Weight in the bed scale is 67.5 kg. PHYSICAL EXAMINATION: GENERAL: The patient is intubated, sedated. Eyes are closed. HEAD AND NECK : Pupils are equally round and reactive to light. She has scleral jaundice. She does have some facial puffiness. Patient has an endotracheal tube and orogastric tube. Neck is supple. She has a right internal jugular (IJ) triple-lumen catheter. CARDIOVASCULAR: S1, S2, regular rate. Trace edema of the bilateral lower extremities. RESPIRATORY: Chest is clear to auscultation bilaterally. Mildly decreased breath sounds at the bases. No active rales or rhonchi. The patient is ventilator dependent. ABDOMEN: Soft. Positive bowel sounds. No organomegaly. Mild dullness to percussion in the flanks. GENITOURINARY: She has an indwelling López catheter. A very small amount of urine in the bag is noted. MUSCULOSKELETAL: No clubbing or cyanosis. Pulses are 2+. CENTRAL NERVOUS SYSTEM: The patient is intubated and sedated and does not follow commands. SKIN: The patient has jaundice of the skin. LABORATORY REVIEW: CBC showed WBC of 5.2, hemoglobin 8.7, platelets are 30. ABG done today morning showed a pH of 7.43, pCO2 of 26, pO2 of 85, bicarbonate is 17, oxygen saturation is 95%. BMP done today showed sodium 134, potassium 4.2, chloride 103, bicarbonate 23, BUN 53, creatinine is 1.7, calcium 7.4, ionized calcium is 4.5, phosphorus is 3.6. Total bilirubin is 2.5, AST 644, ALT is 723, alkaline phosphatase is 424. LDH is 2159. Total CK is 22. Albumin 1.7. Immunology. Scleroderma antibody is negative. Myeloperoxidase antibody is pending. Rest of the serology is all pending. Microbiology: Gram stain of bronchioalveolar lavage is growing a few Pseudomonas aeruginosa. Rest of the cultures are still pending. IMAGING STUDIES: CT scan of the chest was done, yesterday which showed diffuse bilateral infiltrates, worse in the upper lobes than the lower lobes. Moderate bilateral pleural effusions. CT scan of the abdomen, pelvis was done yesterday, which showed mild diffuse mesenteric edema and mild diffuse ascites. Gallbladder is moderately distended and contains multiple gallstones. CURRENT INPATIENT MEDICATIONS: The patient's medications were all reviewed by myself. She continues to be on intravenous (IV) doxycycline and meropenem. She is on Levophed at 2 mcg at this time. Vasopressin is off. She continues to be on propofol. Hydrocortisone is 50 mg IV every 8 hours at this time. No other significant change in the medications today as compared with yesterday. ASSESSMENT AND PLAN: 1. Acute oliguric renal failure. The patient is still dialysis dependent. Continue CVVHDF with fluid removal parameters. Remove 50 mL an hour for MAP more than 70. Keep even for MAP 60-70 and no fluid removal for a MAP less than 60. Electrolyte repletion is according to CVVHDF protocol. 2. Metabolic acidosis. It is secondary to septic shock, renal failure, and lactic acidosis. Latest lactic acid was done yesterday morning, and it was 5, which was improving. Serum bicarbonate level is within the acceptable range. Repeat ABG done today morning shows a pH within the acceptable range. 3. Septic shock, unknown etiology at this time. Sputum cultures grew very few Pseudomonas aeruginosa. She is currently on doxycycline and meropenem for parasitemia or atypical coverage. Rest of the serology still pending. 4. Ventilator-dependent respiratory failure. Ventilator management is as per pulmonary team. FiO2 requirement is 35%. Fluid management is being done with dialysis. Serology to rule out pulmonary renal syndrome is pending so far. 5. Shock liver. Liver function tests (LFTs) are getting better. All the hepatotoxic medications on hold. 6. Anemia. Transfuse as needed for hemoglobin less than 8. Hemoglobin is stable at this time. 7. Nutrition. The patient is currently on total parenteral nutrition (TPN). TPN is going to be stopped, and pulmonary team is going to start the Nepro tube feeds. Total critical care time spent in the management of this patient today morning in the ICU, excluding all the procedures, is 50 minutes
[2020-02-10] MEDS ORDERED: CALCIUM GLUCONATE 1,000 MG in NS 100 ML IV ONE (16:00)
[2020-02-10] MEDS: NOREPINEPHRINE BITARTRATE 16 MG in D5W 484 ML IV SCH (17:37)
[2020-02-10 20:05] LABS: IONIZED CALCIUM 4.4 MG/DL (4.5-5.3)
[2020-02-10 20:11] LABS: HEMATOCRIT 25.3 % (36.0-47.0); HEMOGLOBIN 9.4 g/dl (12.0-15.5); MEAN CORPUSCULAR HEMOGLOBIN 32.4 pg (27.0-33.0); MEAN CORPUSCULAR VOLUME 87.2 fl (80.0-96.0); PLATELET COUNT, AUTOMATED 37 10^3/uL (150-450); WHITE BLOOD COUNT 9.2 10^3/uL (4.0-10.0)
[2020-02-10 20:12] LABS: MEAN CORPUSCULAR HGB CONC 37.2 g/dl (32.0-36.5)
[2020-02-10 20:36] LABS: CALCIUM LEVEL 7.2 MG/DL (8.8-10.2); CREATININE FOR GFR 2.01 MG/DL (0.55-1.30); GLOMERULAR FILTRATION RATE 26.2 (>45); MAGNESIUM LEVEL 2.6 MG/DL (1.8-2.4); PHOSPHORUS LEVEL 2.1 MG/DL (2.5-4.9); POTASSIUM SERUM 4.9 MEQ/L (3.5-5.1)
[2020-02-10] MEDS ORDERED: SODIUM PHOSPHATE INJ 30 MMOL in D5W 500 ML IV ONE (21:45)
[2020-02-10] MEDS ORDERED: KCL 20MEQ IN 100ML SWI (KRUN) 20 MEQ in IV 1 EA IV ONE ×2 (21:45)
[2020-02-10] MEDS ORDERED: NS 500 ML IV ONE (21:45)
[2020-02-10 21:52] LABS: ABG BASE EXCESS -13.4 (-2.0-2.0); ABG HCO3 10.3 MEQ/L (22.0-26.0); ABG O2 SATURATION 93.9 % (95.0-99.0); ABG STANDARD HCO3 13.8 MEQ/L (22.0-26.0); ABG TOTAL CO2 10.8 MEQ/L (23.0-31.0); ABG pH (ARTERIAL) 7.357 UNITS (7.350-7.450)
[2020-02-10 21:53] LABS: ABG PARTIAL PRESSURE CO2 18.7 mmHg (35.0-45.0)
[2020-02-11] VITALS (98 sets, daily range): BP systolic 73–195; BP diastolic 38–94; O2SAT 96
[2020-02-11] MEDS: HYDROCORTISONE 100 MG/2 ML VIAL (J1720 PER 1) IV SCH ×4 (00:48→23:55)
[2020-02-11 02:37] LABS: IONIZED CALCIUM 4.1 MG/DL (4.5-5.3)
[2020-02-11] MEDS: ALBUTEROL SULFATE 2.5 MG/0.5 ML INH NEB SOLN NEB SCH ×4 (02:37→19:59)
[2020-02-11 03:11] LABS: CALCIUM LEVEL 7.2 MG/DL (8.8-10.2); CREATININE FOR GFR 1.95 MG/DL (0.55-1.30); GLOMERULAR FILTRATION RATE 27.2 (>45); MAGNESIUM LEVEL 2.5 MG/DL (1.8-2.4); PHOSPHORUS LEVEL 6.9 MG/DL (2.5-4.9); POTASSIUM SERUM 5.3 MEQ/L (3.5-5.1)
[2020-02-11 04:28] LABS: PHOSPHORUS LEVEL 5.5 MG/DL (2.5-4.9); POTASSIUM SERUM 5.1 MEQ/L (3.5-5.1)
[2020-02-11] MEDS: CALCIUM GLUCONATE 1,000 MG in NS 100 ML IV SCH ×2 (04:58→06:02)
[2020-02-11] MEDS: HumaLOG INSULIN (NovoLOG) PER UNIT SC SCH ×4 (06:00→18:00)
[2020-02-11 06:19] LABS: ABG BASE EXCESS -4.5 (-2.0-2.0); ABG HCO3 17.7 MEQ/L (22.0-26.0); ABG O2 SATURATION 96.5 % (95.0-99.0); ABG PARTIAL PRESSURE CO2 22.8 mmHg (35.0-45.0); ABG PARTIAL PRESSURE O2 90.5 mmHg (75.0-100.0); ABG STANDARD HCO3 20.7 MEQ/L (22.0-26.0); ABG TOTAL CO2 18.4 MEQ/L (23.0-31.0); ABG pH (ARTERIAL) 7.508 UNITS (7.350-7.450)
[2020-02-11 07:55] LABS: HEMATOCRIT 21.1 % (36.0-47.0); HEMOGLOBIN 7.9 g/dl (12.0-15.5); MEAN CORPUSCULAR HEMOGLOBIN 33.1 pg (27.0-33.0); MEAN CORPUSCULAR VOLUME 88.3 fl (80.0-96.0); RED BLOOD COUNT 2.39 10^6/uL (4.00-5.40)
[2020-02-11 07:57] LABS: MEAN CORPUSCULAR HGB CONC 37.4 g/dl (32.0-36.5); PLATELET COUNT, AUTOMATED 31 10^3/uL (150-450)
[2020-02-11 08:30] LABS: ATYPICAL LYMPH 2 % (0-5); LYMPHOCYTES 8 % (16-44); METAMYELOCYTES 1 % (0-0); MYELOCYTES 3 % (0-0); NEUTROPHILS 80 % (28-66); PLATELET ESTIMATE MARKED DECREASE (NORMAL)
[2020-02-11 08:31] LABS: ANISOCYTOSIS 1+; MICROCYTOSIS 1+
[2020-02-11 08:32] LABS: SMUDGE CELLS 2+
[2020-02-11 08:33] LABS: POLYCHROMASIA 1+
[2020-02-11 08:58] LABS: ALBUMIN 1.9 GM/DL (3.2-5.2); BILIRUBIN,TOTAL 3.7 MG/DL (0.2-1.0); CALCIUM LEVEL 7.8 MG/DL (8.8-10.2); CREATININE FOR GFR 1.8 MG/DL (0.55-1.30); GLOMERULAR FILTRATION RATE 29.8 (>45); MAGNESIUM LEVEL 2.5 MG/DL (1.8-2.4); TOTAL PROTEIN 4.4 GM/DL (6.4-8.2)
[2020-02-11] MEDS: PANTOPRAZOLE 40MG VIAL (C9113 PER 1) IV SCH ×2 (09:35→21:17)
[2020-02-11] MEDS: CHLORHEXIDINE GLUCONATE 0.12 % 15ML UDC (PERIDEX ORAL RINSE) MT SCH ×2 (09:35→21:18)
[2020-02-11] MEDS: DOXYCYCLINE HYCLATE 100 MG in D5W MINI-BAG PLUS 100 ML IV SCH ×2 (09:36→21:18)
--- NOTE | 2020-02-11 09:39 | REP ---
CHEST, SINGLE VIEW: Single view of the chest is performed. COMPARISON: 02/10/2020 Diffuse bilateral increased interstitial markings are unchanged. Mild retrocardiac opacity on the left is unchanged. Heart is normal in size. Mediastinal silhouette is unchanged. Right central venous catheter and endotracheal tube are unchanged. Nasogastric tube is seen. The sideport is in the stomach in good position. Electronically Signed by Tacho Lu MD 02/11/2020 10:25 A
[2020-02-11] MEDS: MEROPENEM INJ 1 GM in IV 1 EA IV SCH ×2 (09:40→21:17)
[2020-02-11] MEDS ORDERED: ISOVUE-370 76% 100ML VIAL As Ordered ONE (10:07)
[2020-02-11] MEDS ORDERED: CALCIUM GLUCONATE 1,000 MG in NS 100 ML IV ONE (11:00)
--- NOTE | 2020-02-11 11:44 | IPN ---
DATE: 02/08/2020 Roxy is intubated, sedated with propofol and on fentanyl. The patient is on an FiO2 of 40%. She has remained afebrile. She is on Levophed and Vasopressin. She was being dialyzed today. She has had no fevers. The patient has a nasogastric (NG) tube with brownish secretions, guaiac positive. Secretions from the trach tube are mostly clear. There is no more bleeding from the endotracheal tube (ET) tube. PHYSICAL EXAMINATION: She has remained afebrile. Temperature is 97.2 rectally, pulse is 56, respirations 20, blood pressure 120/58 on Levophed to 2 mcg and Vasopressin. Oxygen saturation 96% on FiO2 of 40%. Heart: Normal S1, S2. No murmurs appreciated. Lungs: Few crackles at the bases. No wheezes or rhonchi. Abdomen is soft, nontender. Extremities: Trace edema. She is icteric. She is sedated and paralyzed. LABORATORY DATA: White count is 5.1, hemoglobin 8.7, hematocrit 24.1, platelets 29. ESR 65. Sodium 137, potassium 4.2, chloride 103, bicarbonate 22, BUN 59, creatinine 1.81, glucose 232, calcium 7.8, phosphorus 4.5, magnesium 2.5. Bilirubin was 3.2 with direct bilirubin of 2.3, AST 2181, ALT 1168, alkaline phosphatase 478. LDH 5746. Bronchioalveolar lavage (BAL) AFB smear was negative. Three sputums have been negative. Gram stain: Many red cells, few white cells. No organisms seen. Fungal smear and culture are pending. Sputum culture from January 31 was final negative. Respiratory PCR was negative. Serology: Cytomegalovirus (CMV) IgG positive, IgM negative. Toya-Dasilva virus (EBV) IgG positive, IgM negative. COVID IgG negative. QuantiFERON TB Gold negative. Histoplasma antigen is pending. Leptospira antibody pending. Herpes DNA pending. Streptococcus antigen pending. CMV and EBV DNA pending. IMPRESSION: 1. Acute respiratory failure with predominately upper lobe infiltrates, interstitial, associated with mostly a dry nonproductive cough. The patient was treated with 5 days of ceftriaxone and Zithromax followed by vancomycin and cefepime, currently on meropenem. Doxycycline for possibility of aspiration. Legionnaire antigen had not been sent, and this was added. Rest of bacterial studies have been negative. Procalcitonin at the beginning of admission was twice less than 0.25, suggestive of an atypical infection or viral etiology. Currently has increased to over 2.5, suggestive of superimposed bacterial infection. 2. Acute kidney injury. The patient currently on hemodialysis. 3. Acute liver injury with what sounds like shock liver, increased AST,and bilirubin. Liver ultrasound shows multiple gallstones and edematous, per patient abdominal pain before she got intubated was profound and epigastric in nature. Continue to monitor. PLAN: So far, etiology of current presentation remains unclear. Many studies are still pending, especially BAL. Will review that with pathology tomorrow. Continue IV meropenem and doxycycline for atypical coverage. Legionnaire antigen and Legionnaire culture have been added.
--- NOTE | 2020-02-11 11:47 | REP ---
CT BRAIN WITHOUT CONTRAST: CT brain performed without IV contrast. Coronal reconstruction images are performed. There is mild to moderate diffuse atrophy. There is no midline shift or mass effect. Lu-white differentiation is well maintained. There is no acute intracranial hemorrhage or extra-axial fluid collection. Bone window examination is unremarkable. IMPRESSION: Mild to moderate atrophy. No acute intracranial findings. Electronically Signed by Tacho Lu MD 02/11/2020 12:28 P
--- NOTE | 2020-02-11 11:58 | REP ---
CT ABDOMEN AND PELVIS WITH IV CONTRAST: TECHNIQUE: Axial contrast-enhanced images from the lung bases to the pubic symphysis using 100 mL Isovue-370 intravenous contrast material with multiplanar reformations. COMPARISON: 02/08/2020 There are moderate bilateral pleural effusions which appear unchanged. There are adjacent parenchymal opacities which appear similar to the prior exam. Nasogastric tube is seen with the sideport in the stomach. Liver, spleen, adrenals, pancreas, and kidneys appear unremarkable. There is no hydronephrosis. The gallbladder is again distended with wall thickening and multiple intraluminal stones. No adenopathy is seen. No free air is seen. There is mild diffuse mesenteric edema and there is mild free fluid in the pelvis. There appears to be diffuse thickening in the wall of the colon, with relative sparing of the rectosigmoid colon. This represents nonspecific colitis. Ischemic colitis is not excluded, although this diffuse pattern is not typical for ischemic colitis. Small bowel is not dilated or thickened. IUD is again seen in the uterus. There is diffuse superficial soft tissue edema. A López catheter is seen in the collapsed urinary bladder. IMPRESSION: Stable moderate bilateral pleural effusions and adjacent parenchymal opacities. There is mild diffuse thickening of the colon with sparing of the rectosigmoid colon compatible with a mild colitis. I cannot exclude ischemic colitis, although the pattern is not typical. Mesenteric arteries and veins are patent. Nasogastric tube in the stomach. Gallbladder is again moderately distended with wall thickening and multiple intraluminal stones. There is mild diffuse mesenteric edema and mild free fluid in the pelvis. Electronically Signed by Tacho Lu MD 02/11/2020 12:29 P
--- NOTE | 2020-02-11 12:14 | IPNPDOC ---
Date Seen The patient was seen on 02/11/20. Progress Note SUBJECTIVE: 69-year-old female with no significant past medical history was admitted for pneumonia. Patient has progressively worsened and developed respiratory failure, eventually requiring intubation and mechanical ventilation. She subsequently developed acute renal failure, has been on CRRT for the past 3 days. The etiology of patient's illness remains unclear. Patient seen in the morning, on mechanical ventilation, off all sedation, was on levoped, which has been discontinued this morning as well. Patient is unresponsive, despite removal of all sedation since last night, withdraws to pain in the lower extremities, unresponsive to sternal rub. Patient febrile overnight, hypotensive as well, remains febrile at this time, tube feeds were held last night due to high residuals. PHYSICAL EXAMINATION: VITAL SIGNS: Please see below. GENERAL: No distress HEENT: ET tube 25 cm at the lip NECK: Supple CARDIOVASCULAR EXAMINATION: S1, S2, tachycardic RESPIRATORY EXAMINATION: Scattered rhonchi, diminished in the bases, ABDOMINAL EXAMINATION: Soft, nondistended, hypoactive bowel sounds EXTREMITIES: Diffuse edema present SKIN: No rash NEUROLOGICAL EXAMINATION: Pupils equal and reactive to light, unresponsive other than withdrawing to pain in the lower extremities on mechanical ventilation LABORATORY DATA, IMAGING STUDIES, MICROBIOLOGY: Please see below. ASSESSMENT AND PLAN: 69-year-old female initially admitted for pneumonia, now with acute respiratory and renal failure on mechanical ventilation and CRRT, etiology remains unclear. PROBLEMS: 1. 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 2. Acute renal failure: Etiology unclear, possibly due to transient hypotension, remains on CRRT, management as per nephrology. 3. Shock: Likely septic, etiology unclear, was on 2 pressors previously (norepinephrine and vasopressin), all pressors have now been titrated off, remains on stress dose IV steroids, patient transiently hypotensive overnight, febrile in the morning, repeat CT abdomen and pelvis in the morning, showing mild colitis, ?Ischemic, tube feeds have been held due to high residuals. DVT prophylaxis: SCDs GI prophylaxis: PPI VS, I&O, 24H, Fishbone Vital Signs/I&O Vital Signs Date Time Temp Pulse Resp B/P (MAP) Pulse Ox O2 Delivery O2 Flow Rate FiO2 02/11/20 07:10 109 18 94 35 02/11/20 07:00 99.7 143/60 (87) Ventilator 02/06/20 20:00 35.0 I&O- Last 24 Hours up to 6 AM 02/11/20 06:00 Intake Total 3800.4 ml Output Total 207 ml Balance 3593.4 ml Laboratory Data 24H LABS Laboratory Tests 2 02/10/20 13:47: Anion Gap 13, Glomerular Filtration Rate 27.8L, Calcium Level 7.9L, Whole Blood Ionized Calcium 4.6, Phosphorus Level 2.8, Magnesium Level 2.5H 02/10/20 17:28: Bedside Glucose (Misc Panel) 119H 02/10/20 19:57: Anion Gap 11, Glomerular Filtration Rate 26.2L, Calcium Level 7.2L, Whole Blood Ionized Calcium 4.4L, Phosphorus Level 2.1#L, Magnesium Level 2.6H, Nucleated Red Blood Cells % (auto) 60.1H, Activated Partial Thromboplast Time 29.7 02/10/20 21:37: Blood Gas Bicarbonate Standard 13.8L, Arterial Blood pH 7.357, Arterial Blood Partial Pressure CO2 18.7*L, Arterial Blood Partial Pressure O2 82.0, Arterial Blood Total CO2 10.8L, Arterial Blood HCO3 10.3L, Arterial Blood Base Excess - 13.4L, Arterial Blood Oxygen Saturation 93.9L 02/11/20 00:40: Bedside Glucose (Misc Panel) 105 02/11/20 02:23: Anion Gap 17H, Glomerular Filtration Rate 27.2L, Calcium Level 7.2L, Whole Blood Ionized Calcium 4.1L, Phosphorus Level 6.9#H, Magnesium Level 2.5H 02/11/20 03:28: Phosphorus Level 5.5#H 02/11/20 06:10: Bedside Glucose (Misc Panel) 114 02/11/20 06:12: Blood Gas Bicarbonate Standard 20.7L, Arterial Blood pH 7.508H, Arterial Blood Partial Pressure CO2 22.8L, Arterial Blood Partial Pressure O2 90.5, Arterial Blood Total CO2 18.4L, Arterial Blood HCO3 17.7L, Arterial Blood Base Excess - 4.5L, Arterial Blood Oxygen Saturation 96.5 02/11/20 07:33: Activated Partial Thromboplast Time 29.7, Anion Gap 11, Glomerular Filtration Rate 29.8L, Calcium Level 7.8L, Whole Blood Ionized Calcium 4.5, Phosphorus Level 4.0#, Magnesium Level 2.5H, Total Bilirubin 3.7H, Aspartate Amino Transf (AST/SGOT) 316H, Alanine Aminotransferase (ALT/SGPT) 363H, Alkaline Phosphatase 671H, Lactate Dehydrogenase 3534H, Total Creatine Kinase 387#H, Total Protein 4.4L, Albumin 1.9L, Albumin/Globulin Ratio 0.8L, Triglycerides Level 964H, Cholesterol Level 107 02/11/20 07:34: Immature Granulocyte % (Auto) , Neutrophils (%) (Auto) , Nucleated Red Blood Cells % (auto) 52.7H, Neutrophils 80H, Band Neutrophils 6, Lymphocytes (Manual) 8L, Metamyelocytes 1H, Myelocytes 3H, Atypical Lymphocytes 2, Polychromasia 1+, Hypochromasia , Basophilic Stippling 1+, Anisocytosis 1+, Microcytosis 1+, Macrocytosis 1+, Smudge Cells 2+, Platelet Estimate MARKED DECREASE CBC/BMP Laboratory Tests 02/10/20 13:47 02/10/20 19:57 02/11/20 02:23 02/11/20 03:28 02/11/20 07:33 02/11/20 07:34 Microbiology Microbiology 02/09/20 Legionella Culture, Received Pending 02/07/20 Acid Fast Stain - Final, Resulted 02/07/20 Mycobacterial Culture, Resulted Pending 02/07/20 Fungal Smear, Resulted Pending 02/07/20 Fungal Culture, Resulted Pending 02/07/20 Viral Culture, Resulted Pending 02/07/20 Gram Stain - Final, Complete 02/07/20 Bronchoalveolar Lavage Culture - Final, Complete Pseudomonas Aeruginosa 02/07/20 Gram Stain - Final, Complete 02/07/20 Bronchoalveolar Lavage Culture - Final, Complete Pseudomonas Aeruginosa 02/07/20 Acid Fast Stain - Final, Resulted 02/07/20 Mycobacterial Culture, Resulted Pending 02/05/20 Fungal Smear, Received Pending 02/05/20 Fungal Culture, Received Pending 02/04/20 Malaria Smear ([facility]) - Final, Complete 02/03/20 Acid Fast Stain - Final, Resulted 02/03/20 Mycobacterial Culture, Resulted Pending 02/01/20 Gram Stain - Final, Complete 02/01/20 Sputum Culture - Final, Complete JIM JOYNER MD February 11, 2020 12:14
--- NOTE | 2020-02-11 14:07 | CCN ---
DATE: 02/10/2020 The patient is seen in the intensive care unit, intubated and mechanically ventilated, critically ill. Over the course of the past 24 hours, we have been able to reduce pressor therapy, shift to more spontaneous modes of mechanical ventilation and she continues on continuous renal replacement therapy. This is hospital day #12, ET tube day #3, central line day #3. At bedside, her vital signs are temperature 99.9, pulse rate is up to 110, respirations 24, blood pressure 105/52 on a low dose of Levophed. Saturations are 95% on 35% FiO2. Input and output for the past 24 hours 2506 in, 2696 out. Since midnight, 404 in, 534 out. CVP this morning measures 5 down from 14 yesterday. She is ill appearing. Her oral mucosa is pink. Dentition is intact. Neck is supple. There is a number 7.5 endotracheal tube at 23 cm and an NG tube in place. There is no air leak. No jugular venous distension. The chest moves symmetrically with respiratory efforts. There is no accessory muscle engagement. The breath sounds remain mildly coarse, but are improved over yesterday. There is no focality. Air exchange is appreciated in all five lobes. Heart sounds are regular without appreciable murmur. Abdomen is soft with intact bowel sounds. No organomegaly. Extremities are cool. Pulses are diminished. There is boggy edema. Nails are not clubbed. DIAGNOSTIC STUDIES: Chest x-ray was reviewed; the report is pending. The lung rojo appear reasonably clear today. There is some hazy density less prominently than yesterday. The endotracheal tube is in good position. NG tube is high. We have advanced subsequent to the chest x-ray. Lab studies were reviewed. Her sodium is 136, potassium 4.5, chloride 102, CO2 21, BUN is 51, creatinine is 1.91, glucose is 157, range is 134-157. The serum calcium is 7.7, phosphorus 2.9, bilirubin is up to 3.6, AST is down to 459, ALT is down 615, alkaline phosphatase is 815, LDH is up slightly 2638. CPK is 49, protein 5.2, albumin 1.8. On microbiology review, the bronchoalveolar lavage specimens yesterday showed a few Pseudomonas, more prominently on the left than the right. The BAL specimen for AFB was negative. Legionella cultures pending. All remaining cultures up to now have been negative. There are multiple serologies pending. No specific serologic finding has returned that would explain the clinical illness. On medications review, this is day #3 of doxycycline, day #3 of meropenem, day #3 of cortisone supplementation. She was changed to nebulized therapy every 6 hours yesterday, currently on a propofol drip and Levophed drip. The primary problem requiring critical attention is acute respiratory failure. She has been weaned to pressure support mode of ventilation. She is somewhat alkalotic in the morning, blood gases will decrease the pressure support and change to Versed as needed for sedation in an attempt to reduce exposure propofol. Pneumonia. Multiple titers are pending. There were a few Pseudomonas. Pseudomonas does not seem particularly consistent with her clinical presentation, nonetheless, she is on day #3 of meropenem to which the Pseudomonas is sensitive. Septic shock. Vasopressin has been discontinued. She continues to require a low dose of Levophed and steroid support. I will give a dose of albumin to determine her response to volume given that her CVP is 5. Thrombocytopenia. Platelet count is little bit better today. Nutritional support. She tolerated low-dose tube feedings, will increase to 60 cc/hour. DVT prophylaxis is being addressed at this point with sequentials only in light of her thrombocytopenia. If platelet count improves, will add back heparin. Glycemic control is reasonable. Will drop the fingerstick blood sugars back to every 6 hours. Ulcer prophylaxis being addressed with Protonix. I have updated the patient's family in regard to the critical nature of her illness. One hour and 45 minutes were spent in the provision of bedside critical care coordination exclusive of any procedure time. HISTORY OF PRESENT ILLNESS Dictated MTDD
[2020-02-11 14:09] LABS: % CD8 Pos Lymph 40.9 % (12.0-35.5); %CD4 Pos Lymphs 22.9 % (30.8-58.5); ABS Basophils 0.1 x10E3/uL (0.0-0.2); ABS Lymphs 1.1 x10E3/uL (0.7-3.1); ABS Monocytes 0.6 x10E3/uL (0.1-0.9); ABS Neutophils 5.5 x10E3/uL (1.4-7.0); Abs CD4 Helper 252 /uL (359-1519); Abs CD8 Suppres 450 /uL (109-897); CD4/CD8 Ratio 0.56 (0.92-3.72); Eosinophils 0 % (Not Estab.); HCT 27.1 % (34.0-46.6); HGB 9.8 g/dL (11.1-15.9); Imm ABS Grans 0.3 x10E3/uL (0.0-0.1); Immature Grans 4 % (Not Estab.); Lymphocytes 14 % (Not Estab.); MCHC 36.2 g/dL (31.5-35.7); MCV 86 fL (79-97); Monocytes 8 % (Not Estab.); NRBC 42 % (0 - 0); Neutrophils 73 % (Not Estab.); Platelets 32 x10E3/uL (150-450); RBC 3.16 x10E6/uL (3.77-5.28); RDW 13.7 % (11.7-15.4); WBC 7.6 x10E3/uL (3.4-10.8)
[2020-02-11 14:21] LABS: HEMOGLOBIN 7.9 g/dl (12.0-15.5); WHITE BLOOD COUNT 8.4 10^3/uL (4.0-10.0)
[2020-02-11 14:22] LABS: MEAN CORPUSCULAR HEMOGLOBIN 31.6 pg (27.0-33.0); MEAN CORPUSCULAR HGB CONC 35.9 g/dl (32.0-36.5)
[2020-02-11 14:30] LABS: PLATELET COUNT, AUTOMATED 31 10^3/uL (150-450)
--- NOTE | 2020-02-11 15:51 | IPN ---
DATE: 02/10/2020 CRITICAL CARE NOTE Mrs. Lujan is seen this morning in intensive care unit on her bedside. She is currently on continuous renal replacement therapy (CRRT) and remains anuric. I was called by nursing staff this morning to report need for increased pressors due to hypotension. Fluid removal has been stopped. Her central venous pressure (CVP) was noted to be only 5. She does have some peripheral edema, but she is oxygenating well on 35% oxygen on the ventilator. PHYSICAL EXAMINATION: Temperature 98.6 degrees Fahrenheit, heart rate 98 per minute and respiratory rate 26 per minute on the ventilator. Blood pressure currently about 103/57 mmHg and oxygen saturation 93-97%. She is on 35% FiO2. Her head is atraumatic. Eyes are closed and she is not responding to any verbal or tactile stimuli at present other than just mild withdrawal. She has a central line in her right internal jugular vein. Heart sounds are somewhat tachycardiac and lungs sound clear to auscultation. Abdomen is soft and bowel sounds are present. Extremities: Without any cyanosis or clubbing. Lower extremity edema is about 1+. Neurologically she is poorly responsive. Today's labs show WBC count 9.9, hemoglobin 10.7 and hematocrit 29.2. Platelets 37,000. Blood gas this morning showed a pH of 7.52, pCO2 of 21, pO2 of 84 and bicarb 21. Sodium is 136, potassium 4.5, CO2 of 22, BUN 46 and creatinine 1.93. Calcium 7.7 and ionized calcium is 4.4. Magnesium 2.7 and phosphorus 2.6. PROBLEMS: 1. Septic shock. The patient is still requiring pressors, and we will not remove any fluid with CRRT anymore. Her CVP is only 5. She remains on broad-spectrum antibiotics and only positive culture so far is her bronchoalveolar lavage, which did show Pseudomonas aeruginosa. All other cultures are negative so far. 2. Anuric acute renal failure. The patient remains on CRRT, and we will continue with the same. Her electrolytes are within normal range. No fluid removal will be needed as her CVP is only 5, and she is requiring pressors. 3. Anemia. Her anemia is stable at this point and does not need any urgent intervention. 4. Respiratory failure. This is related to septic shock, and she is doing well on the ventilator. She is being followed by critical care service. From a renal standpoint, the patient seems to be stable at present with some need for pressors. Her CRRT is working well and will continue with the same. 42 minutes of critical care time spent during which no procedures were performed.
[2020-02-11] MEDS: MIDAZOLAM INJ 2MG/2ML VIAL (J2250 PER 1MG) IV PRN ×2 (15:54→22:36)
[2020-02-11 16:33] LABS: HSV-1 DNA Negative (Negative); HSV-2 DNA Negative (Negative)
[2020-02-11 17:44] LABS: IONIZED CALCIUM 4.3 MG/DL (4.5-5.3)
[2020-02-11] MEDS ORDERED: NS 500 ML IV ONE (18:00)
[2020-02-11 18:05] LABS: HEMATOCRIT 23.4 % (36.0-47.0); HEMOGLOBIN 8.2 g/dl (12.0-15.5)
[2020-02-11 18:14] LABS: CALCIUM LEVEL 7.7 MG/DL (8.8-10.2); CREATININE FOR GFR 2.13 MG/DL (0.55-1.30); GLOMERULAR FILTRATION RATE 24.5 (>45); PHOSPHORUS LEVEL 5.1 MG/DL (2.5-4.9); POTASSIUM SERUM 5.7 MEQ/L (3.5-5.1)
[2020-02-11 18:15] LABS: INR 1.59; PROTHROMBIN TIME 18.7 SECONDS (11.8-14.0)
[2020-02-11 18:16] LABS: PARTIAL THROMBOPLASTIN TIME 31.6 SECONDS (25.0-38.4)
[2020-02-11] MEDS: propofoL 1,000 MG in IV 1 EA IV SCH (20:45)
[2020-02-11] MEDS: NOREPINEPHRINE BITARTRATE 16 MG in D5W 484 ML IV SCH (21:35)
[2020-02-11 22:00] LABS: ABG BASE EXCESS -12.6 (-2.0-2.0); ABG HCO3 10.5 MEQ/L (22.0-26.0); ABG O2 SATURATION 98.7 % (95.0-99.0); ABG STANDARD HCO3 14.4 MEQ/L (22.0-26.0); ABG TOTAL CO2 11.1 MEQ/L (23.0-31.0); ABG pH (ARTERIAL) 7.405 UNITS (7.350-7.450); IONIZED CALCIUM 4.2 MG/DL (4.5-5.3)
[2020-02-11 22:03] LABS: ABG PARTIAL PRESSURE CO2 17.2 mmHg (35.0-45.0)
[2020-02-11 22:06] LABS: HEMATOCRIT 21.7 % (36.0-47.0); HEMOGLOBIN 7.6 g/dl (12.0-15.5); MEAN CORPUSCULAR HEMOGLOBIN 31.4 pg (27.0-33.0); MEAN CORPUSCULAR VOLUME 89.7 fl (80.0-96.0); RED BLOOD COUNT 2.42 10^6/uL (4.00-5.40); WHITE BLOOD COUNT 9.5 10^3/uL (4.0-10.0)
[2020-02-11 22:07] LABS: PLATELET COUNT, AUTOMATED 35 10^3/uL (150-450)
[2020-02-11 22:16] LABS: INR 1.74; PARTIAL THROMBOPLASTIN TIME 32.4 SECONDS (25.0-38.4); PROTHROMBIN TIME 20.1 SECONDS (11.8-14.0)
[2020-02-11 22:38] LABS: CALCIUM LEVEL 7.2 MG/DL (8.8-10.2); CREATININE FOR GFR 1.93 MG/DL (0.55-1.30); GLOMERULAR FILTRATION RATE 27.5 (>45); MAGNESIUM LEVEL 2.6 MG/DL (1.8-2.4); PHOSPHORUS LEVEL 4.8 MG/DL (2.5-4.9); POTASSIUM SERUM 5.4 MEQ/L (3.5-5.1)
--- NOTE | 2020-02-11 22:55 | IPN ---
DATE: 02/08/2020 Roxy was seen in the intensive care unit (ICU) intubated, ventilated, and sedated. The patient was receiving dialysis. She was off pressors. She had been afebrile. No significant change except for weaning of her FiO2 to 35%. PHYSICAL EXAMINATION: Sedated female, intubated. HEART: Normal S1, S2. No murmurs appreciated. LUNGS: Symmetrically clear. ABDOMEN: Soft, nontender. Hypoactive bowel sounds. No masses felt. EXTREMITIES: Ankle edema +1 bilaterally. Oral mucosa is moist. There is an endotracheal (ET) tube and nasogastric (NG) tube. Seems to be tolerating tube feeds well. LABORATORY DATA: White count 9.2, hemoglobin 9.7, hematocrit 26.9, platelets 36. Sodium 138, potassium 4.2, chloride 103, bicarbonate 23, BUN 50, creatinine 1.81, glucose 152, calcium 7.2, phosphorus 2.8, magnesium 2.6. IgG 526, IgA 84, IgM 84. CD-4 count is pending. Glomerular basement membrane IgG is pending. Myeloperoxidase antibodies pending. Cryptococcus antigen negative. Coccidial mycosis antibody 0.3, negative. Histoplasma antigen less than 0.5. Herpes DNA pending. Urine Legionella antigen pending. Leptospira antibody pending. Culture from BAL: Right upper lobe and left upper lobe had few Pseudomonas aeruginosa, sensitive to meropenem. Acid-fast bacillus (AFB) smears were all three negative. QuantiFERON Gold was negative. IMPRESSION: This is a 59-year-old female with a one-month illness who was admitted, now day #11, with respiratory failure, now renal failure. Has just been weaned off pressors. She had on cultures some Pseudomonas aeruginosa, but these are probably colonization and nothing to do with her presentation or deterioration. I suspect this was just colonization. Still unsure of the underlying etiology, whether it is infectious process, although every infectious pathogen so far has been negative on workup, versus autoimmune. The patient continues on intravenous (IV) meropenem and doxycycline along with IV hydrocortisone 50 mg every 8 hours. Antifungal therapy was discontinued due to acute liver failure, probably related to shock liver. AST 644, ALT 723, alkaline phosphatase 424. These have all improved, but fungal antigens have been negative, and therefore I do not see a need for antifungal treatment. PLAN: Continue same management
[2020-02-11] MEDS: CALCIUM GLUCONATE 1,000 MG, VIAL MATE ADAPTER 1 EACH in NS 100 ML IV SCH (23:55)
[2020-02-12] VITALS (100 sets, daily range): BP systolic 61–187; BP diastolic 42–95
[2020-02-12] MEDS: CALCIUM GLUCONATE 1,000 MG, VIAL MATE ADAPTER 1 EACH in NS 100 ML IV SCH (00:42)
[2020-02-12] MEDS: MIDAZOLAM INJ 2MG/2ML VIAL (J2250 PER 1MG) IV PRN (00:57)
[2020-02-12] MEDS: ALBUTEROL SULFATE 2.5 MG/0.5 ML INH NEB SOLN NEB SCH ×4 (02:01→20:01)
[2020-02-12 04:37] LABS: HEMOGLOBIN 7.3 g/dl (12.0-15.5); IONIZED CALCIUM 4.4 MG/DL (4.5-5.3); MEAN CORPUSCULAR HEMOGLOBIN 31.5 pg (27.0-33.0); MEAN CORPUSCULAR HGB CONC 34.9 g/dl (32.0-36.5); MEAN CORPUSCULAR VOLUME 90.1 fl (80.0-96.0); RED BLOOD COUNT 2.32 10^6/uL (4.00-5.40); WHITE BLOOD COUNT 7.5 10^3/uL (4.0-10.0)
[2020-02-12 04:39] LABS: PLATELET COUNT, AUTOMATED 32 10^3/uL (150-450)
[2020-02-12 04:40] LABS: HEMATOCRIT 20.9 % (36.0-47.0)
[2020-02-12 04:48] LABS: LYMPHOCYTES 1 % (16-44); METAMYELOCYTES 2 % (0-0); MONOCYTES 3 % (0-5); MYELOCYTES 4 % (0-0); NEUTROPHILS 89 % (28-66)
[2020-02-12 04:49] LABS: ANISOCYTOSIS 1+; PLATELET ESTIMATE MARKED DECREASE (NORMAL); POIKILOCYTOSIS 1+; POLYCHROMASIA 2+; SMUDGE CELLS 2+
[2020-02-12] MEDS ORDERED: CALCIUM GLUCONATE 1,000 MG, VIAL MATE ADAPTER 1 EACH in NS 100 ML IV ONE ×3 (05:00→17:00)
[2020-02-12 05:08] LABS: CALCIUM LEVEL 8.1 MG/DL (8.8-10.2); CREATININE FOR GFR 1.86 MG/DL (0.55-1.30); GLOMERULAR FILTRATION RATE 28.7 (>45); MAGNESIUM LEVEL 2.6 MG/DL (1.8-2.4); PHOSPHORUS LEVEL 4.8 MG/DL (2.5-4.9); POTASSIUM SERUM 5.3 MEQ/L (3.5-5.1)
[2020-02-12] MEDS: HumaLOG INSULIN (NovoLOG) PER UNIT SC SCH ×4 (05:33→18:00)
[2020-02-12 05:40] LABS: ABG HCO3 11.9 MEQ/L (22.0-26.0); ABG O2 SATURATION 98.3 % (95.0-99.0); ABG PARTIAL PRESSURE O2 118.4 mmHg (75.0-100.0); ABG STANDARD HCO3 15.6 MEQ/L (22.0-26.0); ABG TOTAL CO2 12.5 MEQ/L (23.0-31.0); ABG pH (ARTERIAL) 7.428 UNITS (7.350-7.450)
[2020-02-12 05:43] LABS: ABG PARTIAL PRESSURE CO2 18.5 mmHg (35.0-45.0)
--- NOTE | 2020-02-12 07:20 | REP ---
Clinical: Intubation. Comparison: 02/11/2020. Findings: Endotracheal tube 2 cm above the kendall. Nasogastric tube courses below left hemidiaphragm. Right IJ line with tip in the SVC. Mediastinum and cardiac silhouette are normal. Lung rojo demonstrate relatively chronic stable changes. Subtle superimposed air space disease and trace basilar atelectasis (left greater than right) suggested. Pleural effusions identified on recent CT dated 02/11/2020 are not definitively visible by portable x-ray. No pneumothorax. Skeletal structures stable. Impression: 1. Lines and tubes as above. 2. Subtle scattered air space disease. Trace left basilar atelectasis. 3. Moderate pleural effusions identified on CT dated 02/10 not visible by portable x-ray. Electronically Signed by Dickson Green MD 02/12/2020 07:13 A
[2020-02-12 08:33] LABS: ALBUMIN 2.1 GM/DL (3.2-5.2); BILIRUBIN,DIRECT 2.6 MG/DL (0.0-0.2); BILIRUBIN,TOTAL 3.7 MG/DL (0.2-1.0); TOTAL PROTEIN 4.8 GM/DL (6.4-8.2)
[2020-02-12] MEDS: HYDROCORTISONE 100 MG/2 ML VIAL (J1720 PER 1) IV SCH ×2 (09:08→15:35)
[2020-02-12] MEDS: DOXYCYCLINE HYCLATE 100 MG in D5W MINI-BAG PLUS 100 ML IV SCH ×2 (09:09→21:19)
[2020-02-12] MEDS: MEROPENEM INJ 1 GM in IV 1 EA IV SCH ×2 (09:09→21:45)
[2020-02-12] MEDS: CHLORHEXIDINE GLUCONATE 0.12 % 15ML UDC (PERIDEX ORAL RINSE) MT SCH ×2 (09:09→21:19)
[2020-02-12] MEDS: PANTOPRAZOLE 40MG VIAL (C9113 PER 1) IV SCH ×2 (09:09→21:18)
[2020-02-12 10:08] LABS: HEMATOCRIT 21.9 % (36.0-47.0); HEMOGLOBIN 7.5 g/dl (12.0-15.5); MEAN CORPUSCULAR HEMOGLOBIN 31.6 pg (27.0-33.0); MEAN CORPUSCULAR HGB CONC 34.2 g/dl (32.0-36.5); MEAN CORPUSCULAR VOLUME 92.4 fl (80.0-96.0); RED BLOOD COUNT 2.37 10^6/uL (4.00-5.40); WHITE BLOOD COUNT 8.3 10^3/uL (4.0-10.0)
[2020-02-12 10:11] LABS: PLATELET COUNT, AUTOMATED 25 10^3/uL (150-450)
[2020-02-12 10:19] LABS: INR 1.84
[2020-02-12 10:20] LABS: PARTIAL THROMBOPLASTIN TIME 31.5 SECONDS (25.0-38.4)
--- NOTE | 2020-02-12 10:23 | CCN ---
DATE: 02/11/2020 The patient is seen in the intensive care unit intubated, mechanically ventilated, critically ill. This is hospital day #13, endotracheal tube day #4, right internal jugular catheter day #4. Last evening, there was an episode of hypotension shortly after clotting of the continuous renal replacement therapy (CRRT) canister and administration of medications. This required restart of Levophed which had been weaned. Shortly after IV fluids were administered, the Levophed was once again able to be weaned. At the time, heart rate was up, respiratory rate was up and the patient was febrile. Over the course of the last 12 hours, the patient's Levophed has been weaned off once again. Tube feeds have been placed on hold as there was significant residual at midnight. At bedside, she is ill appearing. Her temperature is 99.7 - this is the max temperature over the past 24 hours, pulse rate 109, respirations 18, blood pressure 143/60. Ins and outs for the past 24 hours are 3234 in and 667 out. Since midnight, 995 in and 25 out. CVP measures at 8. She is ill appearing. Her oral and nasal mucosa are pink. There is an oral endotracheal tube at 23 cm. No air leak is appreciated. Neck is supple. No adenopathy. No jugular venous distention. Nasogastric (NG) tube is in place. The heart sounds are regular, somewhat more rapid today. Breath sounds are coarse, but no focal sounds are appreciated. Chest is symmetric and moves symmetrically. There is minimal accessory muscle use during respiratory effort. Tidal volumes on the ventilator are in the 700s. The abdomen is soft with hypoactive bowel sounds. No easily palpable mass. Extremities are grossly edematous. Peripheral pulses are palpable with some difficulty. There are skin changes from venipuncture, no obvious rashes or new findings. On diagnostic studies, chest imaging was reviewed. I see no significant changes. Tubes and lines are in good position. Lab studies were reviewed. White cell count is 9 with differential white cell count of 80% neutrophils and 6 bands. Hemoglobin is down to 7.9, hematocrit 21.1, and platelet count is stable at 31,000. Electrolytes are sodium 136, potassium 5, chloride 102, CO2 is 23, BUN 55, creatinine 1.8, glucose is 145 and range of 114-145. The calcium is 7.8, phosphorus is 4, magnesium 2.5, bilirubin is stable with high at 3.7, AST is down to 316, ALT is down to 363, alkaline phosphatase is down to 671, LDH is up slightly at 3534 and CPK is 387. The total serum protein is 4.4 and albumin is 1.9. Arterial blood gases this morning showed a pH of 7.5, pCO2 22, and pO2 90 - this is on pressure support mode of ventilation, peak pressure of 10 over PEEP of 5 and FIO2 of 0.35. Multiple microbiology studies were reviewed. No new findings are identified. Multiple immunology and serology studies are out and remain pending. On medications review, this is day #4 of doxycycline, day #4 of meropenem. She is day #4 of cortisone 50 mg every 8 hours. She is receiving Protonix. A Levophed drip is ordered, but is not currently running. Tube feeds similarly ordered, but on hold. The primary problem requiring critical attention is acute respiratory failure. Arterial blood gases show adequate gas exchange on the current ventilator settings. Will continue close monitoring of saturation and end tidal CO2. Infectious disease. The clinical picture is one of infection. The etiology remains elusive. Imaging is planned for today to reevaluate the abdomen. Shock. Central venous pressure is just 8 after fluid. Pressors are now weaned off. Will closely monitor the patient's fluid volume status. If hypotension is once again encountered, I will add additional fluids. Acute kidney failure. CRRT continues. Nutritional support. Will be restarted pending the results of the abdominal CT. Thrombocytopenia. Persistent, no better and no worse. Hemoglobin is down this morning. Etiology is not entirely clear. Will plan for transfusion if hemoglobin falls below 7. Deep vein thrombosis (DVT) prophylaxis is being addressed with sequential hose. Ulcer prophylaxis is being addressed with Protonix. Glycemic control is acceptable at this point. The patient's condition remains critical. Prognosis is guarded. I have reviewed the case with the hospitalist attending physician and nephrology this morning. 1 hour and 32 minutes of time was spent in the provision of bedside critical care and coordination, exclusive of any procedure time.
[2020-02-12 10:29] LABS: IONIZED CALCIUM 4.4 MG/DL (4.5-5.3)
[2020-02-12 10:33] LABS: CALCIUM LEVEL 8.1 MG/DL (8.8-10.2); CREATININE FOR GFR 1.78 MG/DL (0.55-1.30); GLOMERULAR FILTRATION RATE 30.2 (>45); MAGNESIUM LEVEL 2.8 MG/DL (1.8-2.4); PHOSPHORUS LEVEL 5.1 MG/DL (2.5-4.9); POTASSIUM SERUM 5.3 MEQ/L (3.5-5.1)
--- NOTE | 2020-02-12 10:42 | CCN ---
DATE OF VISIT: 02/11/2020 Mrs. Lujan is seen this morning on her bedside in intensive care unit. Last evening, she developed sudden hypotension and required maximum dose of Levophed. She was also given a fluid bolus of 500 mL normal saline, which did help with her blood pressure improving. She has fever again this morning and also more tachycardiac though she is now off Levophed. She remains poorly responsive. No urine output so far and remains on continuous renal replacement therapy (CRRT). She is not tolerating tube feeding anymore due to high residual and tube feeding is currently on hold. We did not remove any fluid yesterday due to hypertension and requiring pressors. Her CVP was reported 8 today, while it was down to 5 yesterday. On physical exam, temperature 99.7 degrees Fahrenheit, heart rate 109 per minute and respiratory rate 18 per minute. Blood pressure 143/60 mmHg and oxygen saturation 94%. She is on 35% FiO2 on the ventilator. She is poorly responsive at present. Her neck veins are difficult to be assessed. Endotracheal tube and nasogastric tubes are in place. Heart sounds are tachycardiac and lungs with diminished breath sounds at dependent parts. Abdomen is soft and bowel sounds are hypoactive. Extremities have no cyanosis or clubbing. Edema on all four limbs, particularly on her thighs and upper limbs is significant. Neurologically, she remains unresponsive. Today's labs show WBC count 9.0, hemoglobin 7.9 and hematocrit 21.1. Platelets are 31,000. Blood gas this morning showed a pH of 7.50, pCO2 of 22.8, pO2 90.5 and bicarbonate 20.7. Sodium this morning 136, potassium 5.0, CO2 23, BUN 55 and creatinine 1.80. 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 A repeat potassium was 5.5 and now most recent one is down to 4.0. AST 316, ALT 363 and alkaline phosphatase 671. LDH is 3534 and total CPK 387. PROBLEMS: 1. Septic shock. She was on maximum dose of Levophed and also required some fluid bolus yesterday, but this morning she is off Levophed, which is encouraging. She still has low grade fever and tachycardia. I think the CAT scan of abdomen and pelvis is warranted in view of persistent fever despite antibiotics and recurrent hypotension. She remains on antibiotics, which will be continued. 2. Anuric acute renal failure. Patient remains on CRRT, which is functioning well. We will now maintain her fluid status and not remove any fluid aggressively in view of her CVP of only 8. She does have peripheral edema, which is related to low serum albumin, and will gradually remove the fluid as tolerated. 3. Altered mentation. She remains unresponsive even though her sedation has been removed. We will get a CT scan of head this morning also. 4. Abnormal elevated liver enzymes most likely related to hepatic congestion and shock liver. At this point, we are getting abdominal CT scan today as she does have history of gallstones and distended gallbladder previously. 5. Acidosis. Her metabolic acidosis has improved and resolved. We will continue with CRRT prescription. 6. Electrolytes. All her electrolytes are being managed with a CRRT and adjustments being made or electrolytes replaced as needed. 7. Anemia. Her anemia did get worse and we will wait for her next complete blood count (CBC). This could be just hemodilution effect. 48 minutes of critical care time spent on the bedside during which no procedures were performed.
[2020-02-12] MEDS ORDERED: NS 500 ML IV ONE ×3 (11:00→17:00)
[2020-02-12 11:07] LABS: ASPERGILLUS FUMIGATUS AB Negative (Negative); AUREOBASIDIUM PULLULANS Negative (Negative); MICROPOLYSPORA FAENI AB Negative (Negative); PIGEON SERUM AB Negative (Negative); THERMOACTINOMYCES SACCHARI Negative (Negative); THERMOACTINOMYCES VULGARIS Negative (Negative)
--- NOTE | 2020-02-12 12:00 | IPNPDOC ---
Date Seen The patient was seen on 02/12/20. Progress Note SUBJECTIVE: 69 yo female with no significant PMH was admitted for due to 1 month of episodic fever as well as N/V, and episodic dyspnea. Patient has progressively worsened and developed respiratory failure, eventually requiring intubation and mechanical ventilation. She subsequently developed acute renal failure, has been on CRRT. The etiology of patient's illness remains unclear. Patient seen in the morning, on mechanical ventilation, off all sedation since February 10, was off levoped but resumed yesterday shortly but was weaned off. Patient is unresponsive to sternal rub and no further question was able to be obtained. Patient had fever 100.9 yesterday afternoon but no fever since then PHYSICAL EXAMINATION: VITAL SIGNS: Please see below. GENERAL: No distress HEENT: Mod to severe chemosis b/l with mild scleral icterus. ET tube 25 cm at the lip NECK: Supple CARDIOVASCULAR EXAMINATION: S1, S2, mildly tachycardic, no obvious murmur noted RESPIRATORY EXAMINATION: Scattered rhonchi, diminished in the bases, ABDOMINAL EXAMINATION: Soft, nondistended, bowel sounds aus in all 4 quadrants EXTREMITIES: Mod edema in b/l upper extremities noted SKIN: Mild petechiae below b/l breast region. Mild jaundice NEUROLOGICAL EXAMINATION: Pupils equal and reactive to light b/l, unresponsive to sternal rub LABORATORY DATA, IMAGING STUDIES, MICROBIOLOGY: Please see below. ASSESSMENT AND PLAN: 69 yo female initially admitted for pneumonia with pancytopenia, liver failure, acute respiratory failure on mechanical ventilaton and renal failure on CRRT, etiology remains unclear. PROBLEMS: 1. 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 Acute renal failure: with electrolyte disturbances. Etiology unclear, possibly due to transient hypotension, remains on CRRT, management as per nephrology. 3. Metabolic acidosis from lactic acidosis, combined with resp alkalosis. Lactic acidosis cont to be trending up. 4. Pancytopenia, likely d/t infection vs sequestration. LDH [id number]. Plt has been trending down since admission with high immature platelet freaction, now at 25. No active bleeding with mild petechiae noted under b/l breast. [place] 2 units of platelet for possible laparatomy with surgery. Peripheral smear showed normochromic, normocytic anemia. Hg has been gradually trending down since admission with high RDW, now at 7.5. [place] 1 unit of blood for possible laparatomy with surgery; cross and match ordered. PT/INR, PTT, and fibrinogen roughly wnl 5. Shock:,likely septic. Pt was on norepinephrine and vasopressin previously. All pressors have now been titrated off, remains on stress dose IV steroids. Repeat CT abdomen and pelvis showing mild colitis questionable ischemic, tube feeds have been held due to high residuals. Pt received 500ml of NS today 6. Encephalopathy, etiology unclear 2/2 infectious vs hepatic vs metabolic. CT brain showed mod atrophy but no acute changes. Ammonia ckmil=[id number] on 02/06/3030, and pt has already been on CRRT. Pt nonresponsive to sternal rub but light reflex is intact. 7. Acute liver failure, prior shock liver. Liver profile improved compared to admission, roughly stable at this time. Antifungal meds d/c d/t elevated liver profile. Elevated direct bili=2.6, KBZ=536, OOO=354, and alk reyb=784 8. [place]. Mild diffuse colitis sparing rectosigmoid colon shown on CT abd/pelvis and ischemic colitis cannot be ruled out. Our team discussed with Dr. Barboza this morning for possible evaluation to see if pt is a surgical candidate DVT prophylaxis: SCDs GI prophylaxis: PPI Attending attestation: I evaluated and examined the patient in person; I discussed the care with Resident in detail and agree with the plan above. VS, I&O, 24H, Fishbone Vital Signs/I&O Vital Signs Date Time Temp Pulse Resp B/P (MAP) Pulse Ox O2 Delivery O2 Flow Rate FiO2 02/12/20 10:15 97.0 93 24 117/65 95 Ventilator 35 02/06/20 20:00 35.0 I&O- Last 24 Hours up to 6 AM 02/12/20 05:59 Intake Total 2094.5 ml Output Total 409 ml Balance 1685.5 ml Laboratory Data 24H LABS Laboratory Tests 2 02/11/20 12:13: Bedside Glucose (Misc Panel) 113 02/11/20 13:35: Nucleated Red Blood Cells % (auto) 56.8H, Immature Platelet Fraction 18.3H 02/11/20 17:35: Bedside Glucose (Misc Panel) 76L, Prothrombin Time 18.7H, Prothromb Time International Ratio 1.59, Activated Partial Thromboplast Time 31.6, Anion Gap 17H, Glomerular Filtration Rate 24.5L, Calcium Level 7.7L, Whole Blood Ionized Calcium 4.3L, Phosphorus Level 5.1#H, Magnesium Level 3.0H 02/11/20 18:54: Bedside Glucose (Misc Panel) 66L 02/11/20 21:47: Nucleated Red Blood Cells % (auto) 64.2H, Prothrombin Time 20.1H, Prothromb Time International Ratio 1.74, Activated Partial Thromboplast Time 32.4, Blood Gas Bicarbonate Standard 14.4L, Arterial Blood pH 7.405, Arterial Blood Partial Pressure CO2 17.2*L, Arterial Blood Partial Pressure O2 140.0H, Arterial Blood Total CO2 11.1L, Arterial Blood HCO3 10.5L, Arterial Blood Base Excess -12.6L, Arterial Blood Oxygen Saturation 98.7, Anion Gap 19H, Glomerular Filtration Rate 27.5L, Lactic Acid Level 11.7*H, Calcium Level 7.2L, Whole Blood Ionized Calcium 4.2L, Phosphorus Level 4.8, Magnesium Level 2.6H 02/12/20 00:10: Bedside Glucose (Misc Panel) 50L 02/12/20 00:17: Bedside Glucose (Misc Panel) 61L 02/12/20 02:20: Lactic Acid Followup at 4 Hours 9.9*H 02/12/20 04:22: Immature Granulocyte % (Auto) , Neutrophils (%) (Auto) , Nucleated Red Blood Cells % (auto) 83.8H, Neutrophils 89H, Band Neutrophils 1, Lymphocytes (Manual) 1L, Monocytes (Manual) 3, Metamyelocytes 2H, Myelocytes 4H, Polychromasia 2+, Poikilocytosis 1+, Basophilic Stippling 1+, Anisocytosis 1+, Macrocytosis 1+, Smudge Cells 2+, Platelet Estimate MARKED DECREASE, Anion Gap 19H, Glomerular Filtration Rate 28.7L, Calcium Level 8.1L, Whole Blood Ionized Calcium 4.4L, Phosphorus Level 4.8, Magnesium Level 2.6H, Total Bilirubin 3.7H, Direct Bilirubin 2.6H, Aspartate Amino Transf (AST/SGOT) 253H, Alanine Aminotransferase (ALT/SGPT) 263H, Alkaline Phosphatase 583H, Total Protein 4.8L, Albumin 2.1L, Albumin/Globulin Ratio 0.8L 02/12/20 05:29: Blood Gas Bicarbonate Standard 15.6L, Arterial Blood pH 7.428, Arterial Blood Partial Pressure CO2 18.5*L, Arterial Blood Partial Pressure O2 118.4H, Arterial Blood Total CO2 12.5L, Arterial Blood HCO3 11.9L, Arterial Blood Base Excess - 11.0L, Arterial Blood Oxygen Saturation 98.3 02/12/20 05:31: Bedside Glucose (Misc Panel) 79L 02/12/20 09:48: Nucleated Red Blood Cells % (auto) 90.5H, Anion Gap 22H, Glomerular Filtration Rate 30.2L, Calcium Level 8.1L, Whole Blood Ionized Calcium 4.4L, Phosphorus Level 5.1H, Magnesium Level 2.8H, Prothrombin Time 21.0H, Prothromb Time International Ratio 1.84, Activated Partial Thromboplast Time 31.5, Fibrinogen 364, Lactic Acid Level 13.4*H CBC/BMP Laboratory Tests 02/11/20 13:35 02/11/20 17:35 02/11/20 21:47 02/12/20 04:22 02/12/20 09:48 Microbiology Microbiology 02/11/20 Blood Culture, Received Pending 02/09/20 Legionella Culture, Received Pending 02/07/20 Acid Fast Stain - Final, Resulted 02/07/20 Mycobacterial Culture, Resulted Pending 02/07/20 Fungal Smear, Resulted Pending 02/07/20 Fungal Culture, Resulted Pending 02/07/20 Viral Culture, Resulted Pending 02/07/20 Gram Stain - Final, Complete 02/07/20 Bronchoalveolar Lavage Culture - Final, Complete Pseudomonas Aeruginosa 02/07/20 Gram Stain - Final, Complete 02/07/20 Bronchoalveolar Lavage Culture - Final, Complete Pseudomonas Aeruginosa 02/07/20 Acid Fast Stain - Final, Resulted 02/07/20 Mycobacterial Culture, Resulted Pending 02/05/20 Fungal Smear, Received Pending 02/05/20 Fungal Culture, Received Pending 02/04/20 Malaria Smear ([facility]) - Final, Complete 02/03/20 Acid Fast Stain - Final, Resulted 02/03/20 Mycobacterial Culture, Resulted Pending GME ATTESTATION GME ATTESTATION My faculty preceptor for this patient encounter was physically present during the encounter and was fully available. All aspects of the patient interview, examination, medical decision making process, and medical care plan development were reviewed and approved by the faculty preceptor. The faculty preceptor is aware and concurs with the plan as stated in the body of this note and will attest to such by his/her cosignature. DELTA SABA DO Feb 12, 2020 11:59 JIM JOYNER MD Feb 16, 2020 13:22
[2020-02-12 13:07] LABS: ANTI DS-DNA AB Negative (Negative)
--- NOTE | 2020-02-12 14:16 | CCN ---
DATE: 02/12/2020 CRITICAL CARE NOTE ADDENDUM: I was called back to the hospital to reevaluate the patient in light of hypotension. She developed tachycardia, increased respiratory rate. Levophed was restarted. Her CVP measured 8; 500 mL of saline was given and her blood pressure did initially respond. Her CVP continuous to only measure 5-7. She did have diarrheal stools earlier. Currently, vital signs are temperature 97, pulse rate 110, respirations 26, blood pressure 96/60. On physical exam, there has been no change from earlier in the day. DIAGNOSTIC STUDIES: Her hemoglobin is up to 8.2, hematocrit 23.3. Sodium is 134, potassium 5.7, chloride 102, CO2 15, BUN 61, creatinine 2.13, glucose 68. She remains on mechanical ventilation with continuous renal replacement therapy (CRRT) running. Given her deterioration, we have arranged to allow for her to come to the hospital. I explained to him that she is very critically ill and that her lungs and kidneys and heart are failing her. I explained that we have given her strong medications, antibiotics, and drugs to contract the effects of her illness but that she has deteriorated and may . He expressed understanding and appreciation that he was allowed to be called in. He repeated understanding that she may and will stay with her. 32 minutes was spent in the provision of bedside critical care and coordination in excess of procedure time.
[2020-02-12 15:49] LABS: IONIZED CALCIUM 4.4 MG/DL (4.5-5.3)
[2020-02-12 16:34] LABS: ALBUMIN 2.5 GM/DL (3.2-5.2); BILIRUBIN,TOTAL 5.4 MG/DL (0.2-1.0); CALCIUM LEVEL 8.3 MG/DL (8.8-10.2); CREATININE FOR GFR 1.56 MG/DL (0.55-1.30); GLOMERULAR FILTRATION RATE 35.1 (>45); MAGNESIUM LEVEL 2.7 MG/DL (1.8-2.4); PHOSPHORUS LEVEL 4.5 MG/DL (2.5-4.9); TOTAL PROTEIN 4.7 GM/DL (6.4-8.2)
[2020-02-12 16:35] LABS: POTASSIUM SERUM 5.4 MEQ/L (3.5-5.1)
[2020-02-12] MEDS ORDERED: VASOPRESSIN INJ 20 UNITS/ML VIAL As Ordered ONE (16:51)
[2020-02-12] MEDS: VASOPRESSIN INJ 20 UNITS in NS 499 ML IV SCH (16:57)
[2020-02-12] MEDS: DEXTROSE 50% 50 ML SYRINGE IV PRN ×3 (18:08→23:40)
[2020-02-12] MEDS: propofoL 1,000 MG in IV 1 EA IV SCH (20:45)
[2020-02-12 22:56] LABS: HEMATOCRIT 21.5 % (36.0-47.0); MEAN CORPUSCULAR HEMOGLOBIN 31.2 pg (27.0-33.0); MEAN CORPUSCULAR HGB CONC 31.6 g/dl (32.0-36.5); MEAN CORPUSCULAR VOLUME 98.6 fl (80.0-96.0); RED BLOOD COUNT 2.18 10^6/uL (4.00-5.40); WHITE BLOOD COUNT 19.4 10^3/uL (4.0-10.0)
[2020-02-12 22:58] LABS: HEMOGLOBIN 6.8 g/dl (12.0-15.5)
[2020-02-12 22:59] LABS: PLATELET COUNT, AUTOMATED 36 10^3/uL (150-450)
[2020-02-12 23:07] LABS: INR 3.71; PROTHROMBIN TIME 36.8 SECONDS (11.8-14.0)
[2020-02-12 23:34] LABS: CALCIUM LEVEL 7.8 MG/DL (8.8-10.2); CREATININE FOR GFR 1.54 MG/DL (0.55-1.30); GLOMERULAR FILTRATION RATE 35.7 (>45); PHOSPHORUS LEVEL 6.6 MG/DL (2.5-4.9); POTASSIUM SERUM 5.5 MEQ/L (3.5-5.1)
[2020-02-12 23:59] LABS: MAGNESIUM LEVEL 2.9 MG/DL (1.8-2.4)
[2020-02-13] VITALS (60 sets, daily range): BP systolic 63–148; BP diastolic 47–87
[2020-02-13] MEDS: HYDROCORTISONE 100 MG/2 ML VIAL (J1720 PER 1) IV SCH ×3 (00:13→15:06)
[2020-02-13] MEDS: NOREPINEPHRINE BITARTRATE 16 MG in D5W 484 ML IV SCH (00:47)
[2020-02-13] MEDS: CALCIUM GLUCONATE 1,000 MG, VIAL MATE ADAPTER 1 EACH in NS 100 ML IV SCH ×2 (00:47→02:18)
[2020-02-13] MEDS: DEXTROSE 50% 50 ML SYRINGE IV PRN ×2 (00:52→02:34)
[2020-02-13] MEDS: ALBUTEROL SULFATE 2.5 MG/0.5 ML INH NEB SOLN NEB SCH ×3 (01:43→13:44)
[2020-02-13] MEDS: VASOPRESSIN INJ 20 UNITS in NS 499 ML IV SCH ×2 (04:05→05:34)
[2020-02-13 04:42] LABS: HEMATOCRIT 29.4 % (36.0-47.0); MEAN CORPUSCULAR HEMOGLOBIN 30.6 pg (27.0-33.0); MEAN CORPUSCULAR VOLUME 92.7 fl (80.0-96.0); RED BLOOD COUNT 3.17 10^6/uL (4.00-5.40); WHITE BLOOD COUNT 19.6 10^3/uL (4.0-10.0)
[2020-02-13 05:01] LABS: HEMOGLOBIN 9.7 g/dl (12.0-15.5); PLATELET COUNT, AUTOMATED 36 10^3/uL (150-450)
[2020-02-13 05:06] LABS: ATYPICAL LYMPH 1 % (0-5); LYMPHOCYTES 5 % (16-44); METAMYELOCYTES 5 % (0-0); MONOCYTES 2 % (0-5); MYELOCYTES 3 % (0-0); NEUTROPHILS 81 % (28-66); PLATELET ESTIMATE MARKED DECREASE (NORMAL)
[2020-02-13 05:07] LABS: ANISOCYTOSIS 1+; SMUDGE CELLS 2+; TOXIC VACUOLATION 1+
[2020-02-13 05:08] LABS: POLYCHROMASIA 1+
[2020-02-13 05:09] LABS: CRENATED RBC 1+; POIKILOCYTOSIS 2+
[2020-02-13] MEDS ORDERED: CALCIUM GLUCONATE 1,000 MG, VIAL MATE ADAPTER 1 EACH in NS 100 ML IV ONE (05:30)
[2020-02-13 05:44] LABS: ABG BASE EXCESS -17.5 (-2.0-2.0); ABG HCO3 6.7 MEQ/L (22.0-26.0); ABG O2 SATURATION 94.7 % (95.0-99.0); ABG PARTIAL PRESSURE O2 82.3 mmHg (75.0-100.0); ABG STANDARD HCO3 11.1 MEQ/L (22.0-26.0); ABG TOTAL CO2 7.2 MEQ/L (23.0-31.0); ABG pH (ARTERIAL) 7.294 UNITS (7.350-7.450)
[2020-02-13 05:47] LABS: ABG PARTIAL PRESSURE CO2 14.2 mmHg (35.0-45.0)
[2020-02-13 05:55] LABS: ALBUMIN 2.3 GM/DL (3.2-5.2); BILIRUBIN,TOTAL 8.5 MG/DL (0.2-1.0); CALCIUM LEVEL 7.8 MG/DL (8.8-10.2); CREATININE FOR GFR 1.57 MG/DL (0.55-1.30); GLOMERULAR FILTRATION RATE 34.9 (>45); PHOSPHORUS LEVEL 5.2 MG/DL (2.5-4.9); POTASSIUM SERUM 5.6 MEQ/L (3.5-5.1); TOTAL PROTEIN 4.1 GM/DL (6.4-8.2)
[2020-02-13] MEDS: HumaLOG INSULIN (NovoLOG) PER UNIT SC SCH ×3 (06:00→12:00)
[2020-02-13] MEDS ORDERED: SODIUM BICARBONATE 8.4% INJ 50 ML SYRINGE IV STA (07:09)
--- NOTE | 2020-02-13 07:09 | CCN ---
DATE: 02/12/2020 The patient is seen in the intensive care unit intubated, mechanically ventilated, critically ill, obtunded. This is hospital day #14, endotracheal tube day #5, right internal jugular catheter day #5. At bedside, she is ill appearing. Her temperature is currently 98.2, T-max for the past 24 hours 101, pulse rate 104, respirations 31, blood pressure 107/59. Ins and outs for the past 24 hours is 2604 over 4417 out. Since midnight, 343 in and 13 out. Currently on Levophed at 6 mcg per minute with a CVP of 3-5. As noted, she is ill appearing. Her oral mucosa is pink. Dentition is intact. She has a #7.5 endotracheal tube at 23 cm. Orogastric tube is in place. Minimal drainage. Neck is supple. No meningismus. No adenopathy. Jugular veins are not distended. Heart sounds are regular. Breath sounds diminished, coarse, no focal sounds. Some accessory muscle use during respiratory effort. Abdomen is soft with no palpable mass. There are some boggy changes of the abdomen. The patient does grimace with abdominal palpation. Extremities are cool. Pulses diminished. IV insertion sites were inspected and are clean. Diagnostic Studies: White cell count is up slightly today at 8.3, hemoglobin is holding stable at 7.5, hematocrit 21.9, and platelet count is down to 25,000. Differential white cell count showed 89% neutrophils and 1 band. There are metamyelocytes and myelocytes noted. Chemistries are sodium 135, potassium 5.3, chloride 103, CO2 is 10, BUN 58, creatinine 1.78, glucose of 72 (range 123-72). Serum lactate has just returned and is 13.4 up from 9.9 at 2:00 a.m. Calcium is 8.1. Phosphorus is 5.1. Magnesium is 2.8. AST is down at 253, ALT is down at 262, alkaline phosphatase is down at 583. Her protein is 2.1. Arterial blood gases performed on a pressure support mode of ventilation, peak of 10 over PEEP of 5, FIO2 0.35, showed a pH of 7.42, pCO2 18, pO2 118, and saturation 98%. Her PT is 21, PTT 31 and INR 1.84. Microbiology studies were rereviewed. A blood culture drawn on the at 1335 remains pending. No other new culture results are available. Imaging Studies were reviewed. Her chest x-ray shows tubes and lines to be in good position. There is evidence of effusion on the basis of AV densities bilaterally. No obvious consolidation or new infiltrate. On medications review, this is day #5 of meropenem, day #5 of doxycycline, day #5 of cortisol 50 mg every 8 hours. There is a Levophed drip. Propofol is minimized. She is receiving p.r.n. doses of Versed and morphine, IV Protonix and nebulized albuterol. Insulin as needed for elevated blood sugars. The primary problem requiring critical attention is septic shock. The patient seems very volume sensitive. Albumin has been started on an every 12-hour basis which should help. Her Levophed dose had been lower, but is now creeping up and in light of the CVP measured at 3-5, I will administer an additional dose of IV saline. Will follow her CVP measures. Acute respiratory failure. Arterial blood gases show a compensated metabolic acidosis. Oxygenation is quite good and x-ray improved. Encephalopathy. Toxic metabolic. Infectious disease. The patient continues on broad-spectrum antibiotics. Blood cultures are pending from the when a fever occurred. No specific bacterial etiology has yet been identified. CBC showing immature neutrophils suggests active bacterial infection nonetheless. Lactic acidosis. I have concern for bowel ischemia given the persistent elevated serum lactate. I have discussed the case with the attending hospitalist who will be contacting surgery for an opinion. While she is critically ill, if bowel ischemia is present perhaps this can be better defined with other imaging techniques. Acute kidney failure. The patient continues on continual renal replacement therapy. Anemia. The patient's hemoglobin is low, but stable. We will not transfuse at the moment, but continue monitoring. Thrombocytopenia. Likely consumptive related to critical illness. The patient has no obvious source of active bleeding at this point to prompt platelet replacement. Deep vein thrombosis (DVT) prophylaxis is being addressed with sequential hose in light of the thrombocytopenia. Ulcer prophylaxis is being addressed with Protonix and we will attempt to restart tube feeds. Glycemic control is acceptable with fingerstick blood sugars and coverage at this point. I have updated the patient's family on the extent of her illness, indicating that she is very critical. The patient's condition is critical. Prognosis is guarded. One hour and 20 minutes was spent in the provision of bedside critical care and coordination in excess of any procedure time. HISTORY OF PRESENT ILLNESS Dictated
[2020-02-13] MEDS ORDERED: SODIUM BICARBONATE 8.4% INJ 50 ML SYRINGE As Ordered ONE (07:17)
[2020-02-13] MEDS: MEROPENEM INJ 1 GM in IV 1 EA IV SCH (08:00)
[2020-02-13] MEDS: CHLORHEXIDINE GLUCONATE 0.12 % 15ML UDC (PERIDEX ORAL RINSE) MT SCH (08:00)
[2020-02-13] MEDS: PANTOPRAZOLE 40MG VIAL (C9113 PER 1) IV SCH (08:00)
[2020-02-13] MEDS: DOXYCYCLINE HYCLATE 100 MG in D5W MINI-BAG PLUS 100 ML IV SCH (08:00)
[2020-02-13] MEDS ORDERED: SODIUM BICARBONATE 150 MEQ in D5W 1,000 ML IV SCH (10:00)
[2020-02-13 10:26] LABS: HEMOGLOBIN 9.2 g/dl (12.0-15.5); MEAN CORPUSCULAR HEMOGLOBIN 30.6 pg (27.0-33.0); MEAN CORPUSCULAR HGB CONC 34.1 g/dl (32.0-36.5); MEAN CORPUSCULAR VOLUME 89.7 fl (80.0-96.0); RED BLOOD COUNT 3.01 10^6/uL (4.00-5.40)
[2020-02-13 10:27] LABS: PLATELET COUNT, AUTOMATED 30 10^3/uL (150-450)
[2020-02-13 10:46] LABS: CALCIUM LEVEL 8.2 MG/DL (8.8-10.2); CREATININE FOR GFR 1.54 MG/DL (0.55-1.30); GLOMERULAR FILTRATION RATE 35.7 (>45); MAGNESIUM LEVEL 2.4 MG/DL (1.8-2.4); POTASSIUM SERUM 5.3 MEQ/L (3.5-5.1)
[2020-02-13 11:04] LABS: INR 3.73
[2020-02-13 11:05] LABS: PARTIAL THROMBOPLASTIN TIME 37.5 SECONDS (25.0-38.4)
[2020-02-13] MEDS ORDERED: NOREPINEPHRINE BITARTRATE 16 MG in D5W 484 ML IV SCH (11:17)
[2020-02-13] MEDS: CALCIUM GLUCONATE 1,000 MG in D5W MINI-BAG PLUS 100 ML IV SCH ×2 (11:47→12:50)
--- NOTE | 2020-02-13 12:00 | IPN ---
DATE: 02/12/2020 Ms. Lujan is seen this morning on her bedside in the intensive care unit. She remains on the ventilator and poorly responsive. She is back on Levophed and blood pressure is barely about 100 mmHg. She still has no urine output. Yesterday, her lactic acid went up quite high and CAT scan of abdomen and pelvis was done yesterday morning which did not show any abscess or frankly necrotic bowel. However, the radiologist could not rule out ischemic colitis. The patient has no bowel movement and she is not tolerating any tube feeds. On physical exam, she is unresponsive and has generalized edema. Temperature is 96.9 degrees Fahrenheit, heart rate above 100 per minute and respiratory rate 24 per minute. Blood pressure 97/50 mmHg and oxygen saturation is still 100% on 35% FIO2. She remains on CRRT. Her head is atraumatic. Central line in right internal jugular vein is unchanged. Neck veins are difficult to be assessed. Heart sounds are tachycardiac and lungs have good bilateral air entry. Abdomen is soft and bowel sounds are present. I do not feel any palpable organomegaly. Extremities have no cyanosis or clubbing. Edema on all four limbs and torso is present. Neurologically, she remains poorly responsive. Today's labs show sodium 135, potassium 5.3, carbon dioxide was 14 and now it is down to 10, BUN 58 and creatinine 1.78. Lactic acid level is 13.4, calcium 8.1 and phosphorus 5.1. Magnesium is 2.8. WBC count is 8.3, hemoglobin 7.5 and hematocrit 21.9. Platelets 25,000. Chest x-ray showed no change in the tubes and lines. She does have small bilateral pleural effusions noticed on the previous CT scan. PROBLEM: 1. Septic shock. The patient remains in poor condition. She is back on Levophed. Yesterday, required further fluid bolus. This morning, her CVP is 5 again and we are going to start with IV albumin 25% 50 mL every 12 hours. She is still on low-dose Levophed which will be continued. She is also on broad-spectrum antibiotics and the only positive culture is Pseudomonas in her bronchoalveolar lavage. She has been on meropenem 1 gram every 12 hours and we will continue with the same. 2. Anuric renal failure. The patient remains anuric and CRRT dependent. We will continue with CRRT at present as her blood pressure is still low and she is not likely to tolerate regular hemodialysis. Her CRRT orders are being renewed. We will increase the dialysis rates in order to try to correct her acidosis and electrolyte abnormalities. 3. Lactic acidosis. Most likely this is the result of septic shock and possibly intra-abdominal organ ischemia. I am concerned about possibility of ischemic bowel. I have discussed with Dr. Villanueva and suggested to repeat her CAT scan again as she has developed worsening lactic acidosis. 4. Hyperkalemia. She has mild hyperkalemia which is likely to correct if her acidosis improves. At this point, we will continue with CRRT and no other intervention is needed. 5. Anemia. No significant change management facilitator the last 24 hours. We can consider transfusing her if her hemoglobin drops any further. 6. Nutrition. She is currently not tolerating tube feeding which is on hold due to high gastric residual. 7. Overall condition. She remains in extremely critical condition with multiorgan failure and poor response to all treatment. The patient's family is coming in today to discuss the level of care. Unfortunately, she has not made any progress despite maximum therapy that she is receiving. 37 minutes of critical care time spent at the bedside during which no procedures were performed.
--- NOTE | 2020-02-13 12:28 | CR ---
DATE OF CONSULTATION: 02/12/2020 REASON FOR CONSULTATION: Hypotension, elevated lactic acid, please evaluate for potential cause of sepsis. HISTORY OF PRESENT ILLNESS: The patient is a 69-year-old woman who apparently had been in excellent health prior to her current hospital admission. She had presented to the emergency department on January 28, 2020 with a complaint of fevers and chills and shortness of breath. She was febrile at the time of presentation. Her labs showed a normal white cell count with some mild anemia. She was admitted for treatment for pneumonia. Her condition had worsened and she required intubation with ventilatory support. She developed elevations of her liver function tests as well as some acute kidney injury. She required pressors to maintain an acceptable blood pressure. Multiple tests were done. Initially the thought was that she might have COVID-19, but at least two tests for COVID-19 have been negative. She has now been tested for multiple other possible infections. She was noted to have a rising lactic acid level on February 06 when it was 6.8 and this has continued to rise. A CT scan was done of the abdomen and pelvis on February 10. The hospitalist contacted me today reporting that he was concerned that there must be some underlying source of sepsis to cause her physiologic changes and he was concerned that perhaps she could have ischemic colitis associated with her episodes of hypotension. I was requested to evaluate the patient and see if I could identify any intra-abdominal process that might require surgical treatment. MEDICATIONS: The patient's current medications include a norepinephrine drip, a vasopressin drip. She is on a ventilator at 35% oxygen and acceptable pressures. She is not currently on any sedation. She is receiving Protonix 40 mg IV twice daily, doxycycline, hydrocortisone and meropenem. ALLERGIES: There are no reported medication allergies. MEDICAL HISTORY: Medical history is obtained from her chart as she is not currently able to communicate. The medical history reports no previous chronic medical diagnoses and no surgery history. FAMILY HISTORY: There apparently was not felt to be any pertinent family history. SOCIAL HISTORY: Patient is a nonsmoker and denies alcohol use. She has had no recent travel. REVIEW OF SYSTEMS: Had shown no history of chest pain or palpitations and no underlying significant lung disease. She had no history of pulmonary embolism (PE) or deep vein thrombosis (DVT). She had no bone or joint issues. She apparently was without any prior chronic medical conditions. PHYSICAL EXAMINATION: Today shows an older woman lying quietly on the intensive care unit (ICU) bed. She has an endotracheal tube in place as well as a nasogastric tube. She does not respond to voice or light touch during the physical exam. The nurse caring for her reports that the only response they received is some minimal response to painful stimuli. The skin is warm and dry. She does not appear jaundiced. Mucous membranes are moist. The heart exam shows a regular rhythm. Lungs show some crackles and faint rhonchi bilaterally, though there appears to be good aeration. The abdomen is a little doughy and there may be some edema of the abdominal wall. There are no scars evident. She does have some bowel sounds in the mid abdomen. There is no tympany to percussion and no tenderness identified on percussion. On palpation, there is no definite mass. She has a dual-lumen dialysis catheter in the right groin. Extremities do show some peripheral edema. LABORATORY STUDIES: Today, show a CBC with a white count of 8, hemoglobin of 8, hematocrit of 22 and a platelet count of 25,000. Chemistries show a sodium of 137, potassium 5.3, chloride 104, CO2 of 14, creatinine 1.86, BUN of 60 and glucose of 123. Her lactic acid was 9.9 early in the morning and 13 in the mid morning. Her total bilirubin this morning was 3.7 with a direct of 2.6, AST of 253, ALT of 263 and alkaline phosphatase of 583. Total protein is 4.8 with an albumin of 2.1. IMAGING: She had imaging today that included a chest x-ray which was interpreted by the radiologist as showing some scattered air space disease. These were felt to be fairly stable. Her various intravenous lines, NG tube and endotracheal tube were all noted. A CT scan of the abdomen and pelvis was done on February 10. I reviewed these images independently and also reviewed the report. The study shows some significant bilateral pleural effusions. She has some cholelithiasis noted with what appears to be some either thickening of gallbladder wall or some pericholecystic fluid. The small bowel appears of relatively normal caliber throughout. There may be some slight thickening in the wall of the right colon. The appendix appears to be present and air-filled. No free air was seen. There was some edema noted of the mesentery as well as some free fluid. Intrauterine device (IUD) was noted in the uterus. Some edema of the abdominal wall was seen. IMPRESSION: The patient has been hospitalized now for 2 weeks requiring mechanical ventilatory support and continuous renal replacement therapy. She has developed multiple organ system failure with acute kidney injury requiring renal replacement therapy. She has had elevations of her liver function tests. Platelet count has dropped into the 20s and she has developed some anemia. She apparently was tolerating some NG tube feedings, but has now developed significant residuals. She has had a rising lactic acid level. Dr. Villanueva felt that she had actually improved somewhat in small ways, but was still requiring pressors and was concerned that perhaps she could have a surgically treatable intra-abdominal process such as ischemic bowel. She certainly has gallstones as well as some perhaps distention and inflammation of the gallbladder. There is some thickening particularly in the right side of the colon based on her CT scan from February 10, but this does not appear particularly typical to me for ischemic colon. The small bowel appears normal. RECOMMENDATIONS: At this point, I would not recommend any surgical intervention. She can be continued on her current supportive care. She certainly would be a very high risk to undergo any sort of abdominal surgery. I am not at this point convinced that there is a high enough likelihood of benefit from surgery to make this a benefit to her. I will continue to follow her as we see how her condition progresses, whether for the better or the worse. PENNY
--- NOTE | 2020-02-13 14:01 | IPN ---
DATE OF SERVICE: 02/12/2020 Mrs. Lujan continues to do poorly. She actually has gotten worse this afternoon. She became very hypotensive. Her central venous pressure (CVP) was down to 5. She received a 500 mL saline bolus this morning and again this afternoon. She is back on Levophed and vasopressin. She continues on dialysis. She is intubated. FIO2 is only 35%. She has been off sedation but has not been awake. Her was at the bedside. She has had persistent lactic acidosis and tachycardia, and there was some concern of ischemic gut. Dr. Lan has been on board and has consulted surgery for evaluation. She had mild diarrhea but no melena. On physical examination, temperature is 92.8, pulse 92, respirations 32, blood pressure 84/58, oxygen (O2) saturation 97% FIO2 35%. Heart: Normal S1, S2, tachycardiac. Lungs: Clear anteriorly, ventilated. Abdomen: Diminished bowel sounds. Nasogastric (NG) tube in place with tube feeds that have been held at this point due to a lot of residual. Extremities: +2 pitting edema bilaterally. Skin: Has petechial lesions underneath her breast. Fingers are purplish in color. She is not alert in spite of sedation being held. Withdraw to painful stimuli. LABORATORY DATA: White count is 8.3, hemoglobin 7.5, hematocrit 21.9, platelets 25, 89% neutrophils, 1% lymphocytes, 3% monocytes. Sodium 137, potassium 5.4, chloride 104, bicarbonate 11, BUN 48, creatinine 1.56, glucose 69, lactic acid 13.4, calcium 8.3, phosphorus 4.5, magnesium 2.7, bilirubin 5.4, AST 242, ALT 252, alkaline phosphatase 598, LDH 3305. Sputum culture from bronchoalveolar lavage (BAL) had Pseudomonas aeruginosa. Few acid-fast bacillus (AFB) smears all negative times three. AFB and fungal cultures are pending. Blood cultures from 02/11/2020 is no growth. Leptospira antibody was negative. Blastomyces antibody negative. Coccidiosis antibody negative. Cryptococcus antigen negative. Histoplasma antigen negative. Urine Legionella antigen negative. Herpes PCR negative. CMV, BV PCR pending. Chest x-ray on 02/12/2020 shows subtle scattered air space disease with basilar atelectasis, moderate pleural effusions. CT abdomen and pelvis done on 02/11/2020 shows stable moderate bilateral pleural effusion with parenchymal opacities, mild diffuse thickening of the colon with sparing of the rectosigmoid compatible with a colitis, possibly ischemic colitis, mesenteric arteries and veins are patent. Gallbladder is moderately distended with multiple intraluminal stones. IMPRESSION: 1. Septic shock. Still origin of infection remains undiagnosed. All workup has been negative so far. Sputum culture from BAL had a few Pseudomonas. This is most likely colonization. The patient has been on meropenem and doxycycline with no improvement. Actually, she has gotten worse with worsening hypotension and persistent thrombocytopenia. 2. Acute kidney failure, on continuous renal replacement therapy (CRRT). 3. Severe hypoalbuminemia with edema and anasarca. I wonder whether any of her nutrition is going through her NG tube was discussed. Possibly total parenteral nutrition (TPN) with Dr. Lan, especially with the discussion of whether she has a colitis or an ischemic colitis. 4. Severe lactic acidosis related to septic shock. PLAN: Unfortunately, the patient is getting worse in spite of broad-spectrum antibiotic with so far negative workup. Continue same antibiotics. Consider TPN instead gastrostomy tube (G-tube) feedings due to limited absorption MTDD
[2020-02-13 16:47] LABS: CALCIUM LEVEL 8.5 MG/DL (8.8-10.2); CREATININE FOR GFR 1.48 MG/DL (0.55-1.30); GLOMERULAR FILTRATION RATE 37.3 (>45); MAGNESIUM LEVEL 2.5 MG/DL (1.8-2.4); PHOSPHORUS LEVEL 4.5 MG/DL (2.5-4.9)
[2020-02-13] MEDS ORDERED: SCOPOLAMINE 1MG TRANSDERMAL PATCH TOP PRN (17:30)
[2020-02-13] MEDS ORDERED: FLEET ENEMA PR PRN (17:30)
[2020-02-13] MEDS ORDERED: MORPHINE 2 MG/ML 1ML VIAL (J2270) IV PRN (17:30)
[2020-02-13] MEDS ORDERED: ONDANSETRON 4MG/2ML VIAL IV PRN (17:30)
[2020-02-13] MEDS ORDERED: LORazepam 2 MG/ML VIAL IV PRN (17:30)
--- NOTE | 2020-02-13 17:56 | IPNPDOC ---
Date Seen The patient was seen on 02/13/20. Progress Note SUBJECTIVE: 69 yo female with no significant PMH was admitted for due to 1 month of episodic fever as well as N/V, and episodic dyspnea. Patient has progressively worsened and developed respiratory failure, eventually requiring intubation and mechanical ventilation. She subsequently developed acute renal failure, has been on CRRT. Pt was noted to require vasopressin and levophed today. She also was started on bicarb drip. Pt had low MAP despite being on 2 pressors thus CRRT was not able to be continued. 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 Pt had received 3 units of albumin and 2 units of PRBC since yesterday morning. PHYSICAL EXAMINATION: VITAL SIGNS: Please see below. GENERAL: No distress HEENT: Mod to severe chemosis b/l with mild scleral icterus. ET tube in place NECK: Supple CARDIOVASCULAR EXAMINATION: S1, S2, mildly tachycardic, no obvious murmur noted RESPIRATORY EXAMINATION: Coarse diminished breath sounds ABDOMINAL EXAMINATION: Soft, nondistended, bowel sounds aus in all 4 quadrants EXTREMITIES: Mod edema in b/l upper and lower extremities noted SKIN: Mild petechiae below b/l breast region ane neck region. Mild jaundice NEUROLOGICAL EXAMINATION: Pupils equal and reactive to light b/l, unresponsive to sternal rub. Extremity not withdrawing to pain LABORATORY DATA, IMAGING STUDIES, MICROBIOLOGY: Please see below. ASSESSMENT AND PLAN: 69 yo female initially admitted for pneumonia with pancytopenia, liver failure, acute respiratory failure on mechanical ventilaton and renal failure on CRRT, etiology remains unclear. PROBLEMS: 1. Acute respiratory failure: Secondary to likely pneumonia, etiology unclear, remains on Doxy and Meropenem since 02/06, on vent management without sedation sedation as per signal integrity engineer. ID following. Legionella pending, BAL cx pending, sputum cx neg AFB with fungal cx pending, blood cx neg. 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 Acute renal failure: with electrolyte disturbances. Etiology unclear. CRRT was not able to be continued d/t low MAP and was subs discontinued. 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 Metabolic acidosis from lactic acidosis, combined with resp alkalosis. Lactic acidosis peaked at 18.3. 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 Pancytopenia, likely d/t infection vs sequestration. LDH mozmiddd=[id number]. High immature platelet fraction and high RDW thus unlikely bone marrow suppression. No active bleeding with mild petechiae noted under b/l breast and in neck region. Pt received 1 unit of PRBC since yesterday morning as Hg was at 6.8 yesterday. 5. Shock:,likely septic. Pt was on norepinephrine and vasopressin previously. She received 3 units of albumin since yesterday morning. She was also be have the pressors titrated off but require both vasopressin and norepi as of today. 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 6. Encephalopathy, etiology unclear 2/2 infectious vs hepatic vs metabolic. CT brain showed mod atrophy but no acute changes. Pt nonresponsive to sternal rub but light reflex is intact, not withdrawing to pain. 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 Shock liver, may be d/t insufficient peripheral blood supply to liver. Liver profile improved prior compared to admission but worsened today. CTB=1499, YYF=2200, alk akne=011 8. Colitis. Mild diffuse colitis sparing rectosigmoid colon shown on CT abd/pelvis and ischemic colitis cannot be ruled out. Discussed with Dr. Barboza and surgical intervention is not thought to be beneficial for pt at this point. DVT prophylaxis: d/c d/t PHOTOGRAPHIC HAND DEVELOPER GI prophylaxis: d/c d/t PHOTOGRAPHIC HAND DEVELOPER initiated the conversation regarding PHOTOGRAPHIC HAND DEVELOPER this afternoon around 5:30PM. Discussed with who is on bedside that the comfort measures are medical care and treatment provided with the goal to relive pain and suffering, and that patient will be extubated with all the IV discontinued. at bedside verbalized understanding and would like the pt to be PHOTOGRAPHIC HAND DEVELOPER status as of 02/13/2020 afternoon at the time of discussion. Attending attestation: I evaluated and examined the patient in person; I discussed the care with Resident in detail and agree with the plan above. VS, I&O, 24H, Fishbone Vital Signs/I&O Vital Signs Date Time Temp Pulse Resp B/P (MAP) Pulse Ox O2 Delivery O2 Flow Rate FiO2 02/13/20 16:45 107 26 93/66 (75) 98 Ventilator 100 02/13/20 16:00 96.8 I&O- Last 24 Hours up to 6 AM 02/13/20 06:00 Intake Total 3521.7 ml Output Total 29 ml Balance 3492.7 ml Laboratory Data 24H LABS Laboratory Tests 2 02/12/20 18:05: Bedside Glucose (Misc Panel) 38*L 02/12/20 18:32: Bedside Glucose (Misc Panel) 52L 02/12/20 19:05: Bedside Glucose (Misc Panel) 99 02/12/20 22:36: Nucleated Red Blood Cells % (auto) 52.4H, Immature Platelet Fraction 20.1H, Prothrombin Time 36.8H, Prothromb Time International Ratio 3.71, Activated Partial Thromboplast Time 48.0H, Anion Gap 24H, Glomerular Filtration Rate 35.7L, Calcium Level 7.8L, Whole Blood Ionized Calcium 4.3L, Phosphorus Level 6.6#H, Magnesium Level 2.9H 02/12/20 22:37: Lactic Acid Followup at 4 Hours 18.3*H 02/13/20 00:04: Bedside Glucose (Misc Panel) 74L 02/13/20 00:38: Bedside Glucose (Misc Panel) 48L 02/13/20 01:02: Bedside Glucose (Misc Panel) 92 02/13/20 02:29: Bedside Glucose (Misc Panel) 59L 02/13/20 03:17: Bedside Glucose (Misc Panel) 98 02/13/20 04:10: Immature Granulocyte % (Auto) , Neutrophils (%) (Auto) , Nucleated Red Blood Cells % (auto) 55.5H, Neutrophils 81H, Band Neutrophils 3, Lymphocytes (Manual) 5L, Monocytes (Manual) 2, Metamyelocytes 5H, Myelocytes 3H, Atypical Lymphocytes 1, Polychromasia 1+, Poikilocytosis 2+, Anisocytosis 1+, Crenated Cell 1+, Toxic Vacuolation 1+, Smudge Cells 2+, Platelet Estimate MARKED DECREASE, Anion Gap 25H, Glomerular Filtration Rate 34.9L, Calcium Level 7.8L, Whole Blood Ionized Calcium 4.4L, Phosphorus Level 5.2#H, Magnesium Level 2.5H, Total Bilirubin 8.5#H, Aspartate Amino Transf (AST/SGOT) 6857H, Alanine Aminotransferase (ALT/SGPT) 1513H, Alkaline Phosphatase 664H, Lactate Dehydrogenase 47506D, Total Creatine Kinase 1049#H, Total Protein 4.1L, Albumin 2.3L, Albumin/Globulin Ratio 1.3, Triglycerides Level 466H, Cholesterol Level 88 02/13/20 05:17: Bedside Glucose (Misc Panel) 79L 02/13/20 05:33: Blood Gas Bicarbonate Standard 11.1L, Arterial Blood pH 7.294L, Arterial Blood Partial Pressure CO2 14.2*L, Arterial Blood Partial Pressure O2 82.3, Arterial Blood Total CO2 7.2L, Arterial Blood HCO3 6.7L, Arterial Blood Base Excess - 17.5L, Arterial Blood Oxygen Saturation 94.7L 02/13/20 06:27: Bedside Glucose (Misc Panel) 77L 02/13/20 07:30: Bedside Glucose (Misc Panel) 66L 02/13/20 08:29: Bedside Glucose (Misc Panel) 82 02/13/20 09:47: Anion Gap 20H, Glomerular Filtration Rate 35.7L, Calcium Level 8.2L, Phosphorus Level 4.0#, Magnesium Level 2.4 02/13/20 09:48: Nucleated Red Blood Cells % (auto) 62.3H, Whole Blood Ionized Calcium 4.3L 02/13/20 10:00: Prothrombin Time 37.0H, Prothromb Time International Ratio 3.73, Activated Partial Thromboplast Time 37.5 02/13/20 12:00: Bedside Glucose (Misc Panel) 66L 02/13/20 14:16: Bedside Glucose (Misc Panel) 83 02/13/20 16:01: Anion Gap 22H, Glomerular Filtration Rate 37.3L, Lactic Acid Level 16.8*H, Calcium Level 8.5L, Whole Blood Ionized Calcium 4.5, Phosphorus Level 4.5, Magnesium Level 2.5H CBC/BMP Laboratory Tests 02/12/20 22:36 02/13/20 04:10 02/13/20 09:47 02/13/20 09:48 02/13/20 16:01 Microbiology Microbiology 02/11/20 Blood Culture - Preliminary, Resulted No Growth after 48 hours. All Specime... 02/09/20 Legionella Culture, Received Pending 02/07/20 Acid Fast Stain - Final, Resulted 02/07/20 Mycobacterial Culture, Resulted Pending 02/07/20 Fungal Smear, Resulted Pending 02/07/20 Fungal Culture, Resulted Pending 02/07/20 Viral Culture, Resulted Pending 02/07/20 Gram Stain - Final, Complete 02/07/20 Bronchoalveolar Lavage Culture - Final, Complete Pseudomonas Aeruginosa 02/07/20 Gram Stain - Final, Complete 02/07/20 Bronchoalveolar Lavage Culture - Final, Complete Pseudomonas Aeruginosa 02/07/20 Acid Fast Stain - Final, Resulted 02/07/20 Mycobacterial Culture, Resulted Pending 02/05/20 Fungal Smear, Received Pending 02/05/20 Fungal Culture, Received Pending 02/04/20 Malaria Smear ([facility]) - Final, Complete 02/03/20 Acid Fast Stain - Final, Resulted 02/03/20 Mycobacterial Culture, Resulted Pending GME ATTESTATION GME ATTESTATION My faculty preceptor for this patient encounter was physically present during the encounter and was fully available. All aspects of the patient interview, examination, medical decision making process, and medical care plan development were reviewed and approved by the faculty preceptor. The faculty preceptor is aware and concurs with the plan as stated in the body of this note and will attest to such by his/her cosignature. DELTA SABA DO Feb 13, 2020 17:56 JIM JOYNER MD Feb 19, 2020 08:19
[2020-02-13] MEDS ORDERED: SODIUM CHLORIDE IV SCH ×4 (18:00)
[2020-02-13] MEDS ORDERED: FAT EMULSION IV 20% 500 ML IV SCH (18:00)
[2020-02-13] MEDS ORDERED: HumaLOG INSULIN (NovoLOG) PER UNIT SC SCH (18:00)
[2020-02-13] MEDS ORDERED: [UNRECOGNIZED DRUG - OTHER] IV SCH ×4 (18:00)
[2020-02-13] MEDS ORDERED: SODIUM ACETATE IV SCH ×4 (18:00)
--- NOTE | 2020-02-13 19:44 | CCN ---
DATE: 02/13/2020 CRITICAL CARE NOTE The patient is seen in the intensive care unit, intubated, mechanically ventilated and critically ill, obtunded. This is day #6 ICU, day #6 endotracheal tube, day #6 right internal jugular catheter. Over the past 24 hours, she has continued to display volatile blood pressures, plummeting last evening requiring the reinstitution of double pressor therapy. Her lactic acid became quite high in the night. She received blood transfusions, and this morning her pressor requirement is slightly improved. Currently at bedside her temperature is 98.2, pulse rate 107, respirations 25, blood pressure 142/74. Intake and output for the past 24 hours: 2442 in, 41 mL out. Since midnight, 1838 in, 0 out. Her oral mucosa is pink. Neck is supple. The endotracheal tube is in good position at 23 cm. There is an orogastric tube in place. Right internal jugular catheter site is clean. Heart sounds are regular without appreciable murmur. Breath sounds coarse clear. No focal sounds are appreciated. There is some dullness in the bases. Abdomen is firm but no focal tenderness. There are intermittent bowel sounds. No palpable mass. Extremities are cool, grossly edematous, weeping fluid. Peripheral pulses are diminished but palpable. There is a right radial arterial line with good waveform and the site is clean. DIAGNOSTIC STUDIES: Sodium is 138, potassium 5.6, chloride 104, CO2 is 9, BUN 38, creatinine 1.72, glucose 86. White cell count is 19.6, hemoglobin 9.7, hematocrit 29.4, platelet count is 36,000. Differential: White cell count shows 81% neutrophils and 3 bands. There are metamyelocytes and myelocytes. Arterial blood gases show a pH of 7.29, pCO2 of 14, pO2 of 82; this on a pressure support mode of ventilation, peak pressure of 10 over PEEP of 8, FiO2 is 0.35. Her CPK is 1049, AST is markedly elevated at 6857, ALT is markedly elevated at 1513, albumin is 2.3, alkaline phosphatase 664, the phosphorus was 5.2, LDH was 21,775, bilirubin is 8.5. On microbiology review, blood culture from 02/11/2020 was negative. Most recent positive culture was sputum from 02/07/2020 showing only a few Pseudomonas, which I suspect are contaminate. On medications review, this is day #6 of meropenem, day #6 of doxycycline, day #6 of cortisol. She is receiving Protonix 40 mg every 12 hours ulcer prophylaxis, Levophed titrated to a mean arterial pressure of 65, vasopressin and a bicarbonate drip was started this morning. The primary problem requiring critical attention is shock, both septic and hypovolemic. The patient seems to do best with central venous pressures about 10 or more. There has been no suggestion of pulmonary edema, currently with a central venous pressure of 14, her pressor requirement is down, vasopressin has been stopped, and she is weaning on Levophed. I will check an electrocardiogram. Metabolic acidosis (lactic). The etiology is non entirely clear. We are suspicious of gut ischemia. However, surgical consultation identified no opportunity for operative intervention. I will recheck a lactate. Shock liver. Transaminases and LDH are markedly elevated, likely related to the episodes of hypotension and hypothermia experienced yesterday. Respiratory failure. Gas exchange is good now on pressure support. She is compensating for metabolic acidosis. Encephalopathy, toxic metabolic. The patient has received little sedation in the past days. Infectious disease. The etiology of her underlying infection is not clear despite multiple cultures and serologies. Broad-spectrum antibiotics continue and infectious disease specialty is following. Renal failure. Continuous renal replacement therapy is underway. I have discussed the current situation with nephrology, and they have been kind enough to agree to write for her total parenteral nutrition (TPN) as she is not tolerating tube feedings and will require bicarbonate support. Anemia. The patient was transfused two units of blood last evening for a hemoglobin of less than 7. Hemoglobin has improved. Will continue monitoring. Thrombocytopenia. I suspect this is consumptive. There is no active bleeding at this time. There was some bloody secretion in the nasogastric (NG) tube earlier. Continue to closely monitor this. Deep vein thrombosis (DVT) prophylaxis is being addressed with sequential hose. Ulcer prophylaxis being addressed with Protonix, high dose. Glycemic control is acceptable. She became hypoglycemic yesterday and required infusion of glucose. Perhaps with the TPN, her blood sugars will stabilize. Will continue close monitoring. The case has been reviewed with the specialty services involved in her care. The patient's condition is very critical. Prognosis is poor. 1 hour and 44 minutes was spent in provision of bedside critical care and coordination in excess of any procedure time. [facility] HOSPITALMoiz
--- NOTE | 2020-02-14 03:10 | IPN ---
DATE: 02/13/2020 CRITICAL CARE NOTE: Mrs. Lujan is seen this morning on her bedside in intensive care unit. I discussed her case with Dr. Cruz Barboza last evening when he was here to see her. She has persistent septic shock despite pressors and has developed worsening lactic acidosis, hyperkalemia, and elevated phosphorus level despite continuous renal replacement therapy (CRRT). I have very strong suspicion for intra-abdominal ischemia or tissue necrosis. In the meantime, patient remains unresponsive and minimally draws her foot on painful stimulus. She is not tolerating any tube feeding. She remains on the ventilator and has developed generalized edema due to positive fluid balance. Her central venous pressure (CVP) has been in the range of 5-8, so we have not been removing any fluid for the last 2 days. On physical exam, temperature 96.8 degrees Fahrenheit, heart rate 104 per minute, and respiratory rate 20 per minute. Blood pressure about 104/54 mmHg while she is now on vasopressin and Levophed. Oxygen saturation is 94% on 35% FiO2 at the time of my visit. She has minimal urine output and has been in positive fluid balance. She has generalized edema. Head is atraumatic. Neck veins are difficult to be assessed. Central line is present in right internal jugular vein. Heart sounds are tachycardiac and without a pericardial friction rub. Lungs with slightly diminished breath sounds at bases. Abdomen is soft, and bowel sounds are hypoactive. Extremities have generalized edema on all four limbs. Neurologically, she remains unresponsive. Today's labs are reviewed, which showed a WBC count 19.6, hemoglobin 9.7, and hematocrit 29.4. Platelets are still low at 36,000. INR 3.73 and PTT is 37.5. Sodium 137, potassium 5.3, chloride 104, CO2 of 13, BUN 40, and creatinine 1.54. Glucose 73 and calcium 8.2. Phosphorus is 4.0 and magnesium 2.4. Her lactic acid level has been as high as 18.3 this morning. AST is up to 6857, ALT 1513, and alkaline phosphatase 664. LDH 21,775 and CPK 1049. PROBLEMS: 1. Anuric renal failure. Patient remains dialysis dependent, and CRRT is in progress on her bedside. She still has no urine output. 2. Lactic acidosis. Possibly ischemic tissue necrosis, and I am concerned about intra-abdominal organ ischemia. She has developed hyperkalemia, elevated phosphorus, and worsening lactic acidosis despite CRRT running around the clock. She was seen by Dr. Barboza last evening, who felt that patient was too unstable to go to operating room (OR). At present, we will continue with our efforts to correct her lactic acidosis. I am going to start her on sodium bicarbonate drip in addition to CRRT. 150 mEq sodium bicarbonate in each liter of D5W will be started at 50 mL/h. 3. Nutrition and hypoglycemia. Patient has borderline hypoglycemia and has not tolerated tube feeding for last 48 hours. Total parenteral nutrition (TPN) is being ordered, and a special formula TPN is being reconstituted because of her severe acidosis and various electrolyte abnormalities. 4. Abnormal liver function tests (LFTs). Today, her bilirubin has gone up to 8.5 and AST is also almost 7000. She did have CT scan of abdomen and pelvis a couple of days ago, which did show gallstones and distended gallbladder. At this point, she is too unstable and not in any condition to go to operating room for any exploration. 5. Anemia. Her anemia has improved following transfusion. 6. Thrombocytopenia. Her thrombocytopenia remains essentially unchanged. All in all, Mrs. Lujan remains in extremely critical condition. Unfortunately, she has not made any progress despite all aggressive care and, in fact, she is deteriorating, which is suggestive of ischemic intra-abdominal organ, possible ischemic colitis. 52 minutes of critical care time spent, during which no procedures were performed.
--- NOTE | 2020-02-14 07:47 | ECGEPIP ---
[facility] Test Date: 2020-02-13 Pat Name: CHINYERE CLARK Department: Room: [place] [address] Gender: Female [employer] T[employer]: RF : 1950 Requested By: Donald Lan [facility] Order Number: [id number] Reading MD: Scar Canela Measurements Intervals Hines Rate: 109 P: 66 DE: 154 QRS: 66 QRSD: 84 T: 65 QT: 335 QTc: 451 Interpretive Statements Sinus tachycardia Low voltages with slow precordial R wave progression and minuscule inferoapical Q waves; body habitus versus pulmonary disease. Rhythm change from junctional tachycardia 02/06/20. Repolarization abnormalities have normalized Electronically Signed on 02-14-2020 7:46:59 EDT by Scar Canela
--- NOTE | 2020-02-14 18:00 | DS.PDOC ---
Discharge Summary General Date of Admission January 29, 2020 at 05:01 Date of Discharge 02/13/2020 Discharge Summary PROCEDURES PERFORMED DURING STAY: 1. Central line insertion 2. Bronchoscopy 3. Hemodialysis catheter insertion ADMITTING DIAGNOSES: 1. Fever with subjective SOB/Viral pneumonia with suspected superimposed bacterial PNA DISCHARGE DIAGNOSES: 1. Multiorgan failure: Acute respiratory failure, shock liver, acute renal failure 2. Metabolic acidosis from lactic acidosis, combined with resp alkalosis 3. Pancytopenia, likely d/t infection vs sequestration 4. Shock:,likely septic 5. Encephalopathy 6. Colitis, questionable ischemic colitis. COMPLICATIONS/CHIEF COMPLAINT: Hypoxia,Pneumonia. HISTORY OF PRESENT ILLNESS: 69 yo female with no significant PMH was admitted for due to 1 month of episodic fever as well as N/V starting the day of admission, and episodic dyspnea. Pt reported that her was ill as well 1 month ago when she started feeling unwell, but his symptoms resolved. No recent travel with her last international travel was to [place] in 06/2019 to visit family. She otherwise is healthy at baseline without any known past medical history. Pt denied any chest pain, abdominal pain, diarrhea, constipation, weight loss, headaches, back pain, other sick contacts or pets. HOSPITAL COURSE: In the ED, pt had recorded fever to 103.1 with soft BPs; sat well on RA with ABG revealed paO2 of 66; WBC 4.4, Hgb 10.6, platelets 118, covid-19 negative. Ground glass opacities found on CTA and chest x-ray, PE r/o. She had elevated inflammatory markers of CRP 11.4. EKG with NSR and trop negative with normal lactate lvl. Pt was admitted for possible viral PNA with possible superimprosed bacterial PNA with empiric ceftriaxone/azithro. Pt developed abd pain the next day. Pt was given lasix as there was a concern of fluid overload. Patient has progressively worsened with hypoxia requiring increasing oxygen as well as worsening liver profile. Pt was transferred to ICU 02/02/2020, and ICU provider was consulted on 02/03/2020. 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 Denies recent known contact with positive TB patients/farm animal/birds; no recent travel with no pets. Her antibiotics were broadened to cefepime and vancomycin. Respiratory panel, blood cultures, and sputum cultures, were negative, although her sputum culture was contaminated by oropharyngeal. Pt revealed worsening dyspnea particularly with exertion with continuing fever,chills, and some headaches. Her Inflammatory markers including Ferritin, LDH, and CRP cont to increase. Pt received Ceftriaxone and Azithromycin x 3 days and was changed to Cefepime/Vanc x 1 day, and was changed to oral Doxycycline. ID was consulted, and pt was also started on voriconazole and dexamethasone. She was started on Meropenem on 02/07/2020. Sputum culture from BAL had a few Pseudomonas which was thought to be most likely due to colonization. She later developed respiratory failure, eventually requiring intubation and mechanical ventilation on 02/06/2020. Pt also developed shock and requires pressor with central line placement 02/06/2020. She subsequently developed acute renal failure, has been on CRRT on 02/07/2020 with nephro consulted. Electrolyte disturbances and shock liver was also noted. Pt has been nonresponsive to sternal rub off sedation since at least 02/11/2020. CT abd/pelvis 02/11/2020 revealed mild diffuse colitis sparing rectosigmoid colon and ischemic colitis cannot be ruled out.; discussed with surgical team and surgical intervention is not thought to be beneficial for pt at this point. Extensive workups have been done. Pt received multiple blood product transfusions. The etiology of patient's illness remains unclear. Pt was noted to require 2 pressors including vasopressin and levophed after being off pressors on 02/13/2020 on also was started on bicarb drip. On 02/13/2020 evening Pt had low MAP despite being on 2 pressors thus CRRT was not able to be continued. 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 Pt had multiple covid19 test neg with covid19 ab neg. Urinalysis appears cloudy. Urine protein 2+, 1+ glucose, urine blood 2+, urobilinogen 4.0, WBC 12, RBC 11, urine bacterial 1+ with hyaline cast of 4. IgG 526. Scleroderma negative. IgA and IgM within normal limits. CMV IgG 9.30, but IgM is less than 30.0. Toya-Dasilva virus (EBV) IgG is 86.4, but EBV capsid antigen IgM is less than 36.0. Malaria smear negative. DISCHARGE MEDICATIONS: Please see below. ALLERGIES: Please see below. PHYSICAL EXAMINATION ON THE DAY OF DISCHARGE/ PRIOR TO EXTUBATION: VITAL SIGNS: Please see below. GENERAL: No distress HEENT: Mod to severe chemosis b/l with mild scleral icterus. ET tube in place NECK: Supple CARDIOVASCULAR EXAMINATION: S1, S2, mildly tachycardic, no obvious murmur noted RESPIRATORY EXAMINATION: Coarse diminished breath sounds ABDOMINAL EXAMINATION: Soft, nondistended, bowel sounds aus in all 4 quadrants EXTREMITIES: Mod edema in b/l upper and lower extremities noted SKIN: Mild petechiae below b/l breast region ane neck region. Mild jaundice NEUROLOGICAL EXAMINATION: Pupils equal and reactive to light b/l, unresponsive to sternal rub. Extremity not withdrawing to pain LABORATORY DATA: Please see below. IMAGING: Echo 01/29/2020 Normal LV size and systolic function and probably normal diastolic function. At least borderline elevated central venous pressure and likely mild or possibly even moderate pulmonary hypertension. DISPOSITION: 20 . DISCHARGE CONDITION: []. TIME SPENT ON DISCHARGE: Greater than [47] minutes. Attending attestation: I evaluated and examined the patient in person; I discussed the care with Resident in detail and agree with the plan above. Vital Signs/I&Os Vital Signs Date Time Temp Pulse Resp B/P (MAP) Pulse Ox O2 Delivery O2 Flow Rate FiO2 02/13/20 17:00 108 26 96/62 (73) 98 Ventilator 100 02/13/20 16:00 96.8 I&O- Last 24 Hours up to 6 AM 02/14/20 06:00 Intake Total 1759.0 ml Output Total 0 ml Balance 1759.0 ml Microbiology Microbiology 02/11/20 Blood Culture - Preliminary, Resulted No Growth after 72 hours. All specime... 02/09/20 Legionella Culture, Received Pending 02/07/20 Acid Fast Stain - Final, Resulted 02/07/20 Mycobacterial Culture, Resulted Pending 02/07/20 Fungal Smear, Resulted Pending 02/07/20 Fungal Culture, Resulted Pending 02/07/20 Viral Culture, Resulted Pending 02/07/20 Gram Stain - Final, Complete 02/07/20 Bronchoalveolar Lavage Culture - Final, Complete Pseudomonas Aeruginosa 02/07/20 Gram Stain - Final, Complete 02/07/20 Bronchoalveolar Lavage Culture - Final, Complete Pseudomonas Aeruginosa 02/07/20 Acid Fast Stain - Final, Resulted 02/07/20 Mycobacterial Culture, Resulted Pending 02/05/20 Fungal Smear, Received Pending 02/05/20 Fungal Culture, Received Pending 02/04/20 Malaria Smear ([place]) - Final, Complete Discharge Medications Scheduled Amoxicillin/Potassium Clav (Augmentin 875-125 Tablet) 1 Each Tablet, 1 TAB PO BID, (Reported) PRESCRIBED ON 01/23/2020 Fluticasone Propionate (Fluticasone Propionate) 16 Gm [place].susp, 1 SPRAY NARES BID, (Reported) PRESCRIBED 01/23/2020 Allergies Coded Allergies: SEASONAL ALLERGIES (Verified Allergy, Unknown, 01/28/20) DELTA SABA DO Feb 14, 2020 18:00 JIM JOYNER MD Feb 19, 2020 08:22
[2020-02-15 06:13] LABS: POLYMYOSITIS AB 5.6 EU/ml (.)
--- NOTE | 2020-02-17 07:25 | RO ---
DATE OF PROCEDURE: 02/11/2020 PREOPERATIVE DIAGNOSIS: Hypotension. POSTOPERATIVE DIAGNOSIS: Hypotension. PROCEDURE PERFORMED: A right radial arterial line placement. SURGEON: Donald Lan DO MERCHANDISING STOCK ASSOCIATE: ANESTHESIA: DESCRIPTION OF PROCEDURE: The patient was seen in the intensive care unit hypotensive with significant peripheral edema. Attempts to obtain noninvasive blood pressure were compromised by the extent of the edema and the patient's blood pressure was able to be obtained only with a Doppler. In an effort to establish more accurate blood pressure assessment an arterial line was felt to be necessary. The skin overlying the right radial artery was prepped with Chloraprep draped in a sterile fashion. A 25-gauge needle was used to raise a skin wheal of 1% lidocaine. Thereafter, a 22-gauge introducer needle was placed in through the skin and in the right radial artery. Free return of arterial blood was obtained. A vascular tip guidewire was advanced and a catheter placed over the guidewire and into the right radial artery. The guidewire was removed and the catheter connected to a pressure monitoring system. A good waveform was appreciated. There were no complications.
[2020-02-18 11:07] LABS: CMV QUANT DNA PCR (PLASMA) Negative (Negative); EBV PCR QUAL WHOLE BLD Positive (Negative)
== END 2020-02-13 17:33 | disposition expired | DRG 130 ==
LOC: M ED 22:01 → M ED INP 01-29 05:01 → ENRESERV 01-29 05:45 → M MS5PR 01-29 07:13 → M ICU 02-02 15:40
PROVIDERS: ADMIT Internal Medicine; ATTEND Internal Medicine
PROC: 5A1955Z Respiratory Ventilation, Greater than 96 Consecutive Hours (ICD-10-PCS; 2020-02-06)
PROC: 06HM33Z Insertion of Infusion Device into Right Femoral Vein, Percutaneous Approach (ICD-10-PCS; principal; 2020-02-07)
PROC: 0B9G8ZX Drainage of Left Upper Lung Lobe, Via Natural or Artificial Opening Endoscopic, Diagnostic (ICD-10-PCS; 2020-02-07)
PROC: 0B9C8ZX Drainage of Right Upper Lung Lobe, Via Natural or Artificial Opening Endoscopic, Diagnostic (ICD-10-PCS; 2020-02-07)
PROC: 30233K1 Transfusion of Nonautologous Frozen Plasma into Peripheral Vein, Percutaneous Approach (ICD-10-PCS; 2020-02-07)
PROC: 30233R1 Transfusion of Nonautologous Platelets into Peripheral Vein, Percutaneous Approach (ICD-10-PCS; 2020-02-07)
PROC: 30233N1 Transfusion of Nonautologous Red Blood Cells into Peripheral Vein, Percutaneous Approach (ICD-10-PCS; 2020-02-13)
DX: J12.9 Viral pneumonia, unspecified (principal); R65.21 Severe sepsis with septic shock; K72.00 Acute and subacute hepatic failure without coma; G92 Toxic encephalopathy; N17.9 Acute kidney failure, unspecified; A41.9 Sepsis, unspecified organism; E87.3 Alkalosis; E87.2 Acidosis; J81.1 Chronic pulmonary edema; D61.818 Other pancytopenia; D69.6 Thrombocytopenia, unspecified; I24.8 Other forms of acute ischemic heart disease; M31.0 Hypersensitivity angiitis; E87.70 Fluid overload, unspecified; E83.51 Hypocalcemia; E87.5 Hyperkalemia; R74.0 Nonspecific elevation of levels of transaminase and lactic acid dehydrogenase [LDH]; J96.01 Acute respiratory failure with hypoxia; K52.9 Noninfective gastroenteritis and colitis, unspecified; K80.20 Calculus of gallbladder without cholecystitis without obstruction; D64.9 Anemia, unspecified; Z51.5 Encounter for palliative care; J69.0 Pneumonitis due to inhalation of food and vomit; J15.1 Pneumonia due to Pseudomonas